=== PATIENT | female | born 1930 | race Caucasian/White ===

== ENCOUNTER 2016-10-23 02:02 | Emergency (ER) | payer OTHER ==
[~2016-10-23] VITALS: Ht 165.1 cm; Wt 68.0 kg
[2016-10-23] VITALS (7 sets, daily range): BP systolic 121–149; BP diastolic 64–79; PULSE 58–87; RESP 16–18; TEMP 97.3; O2SAT 94–97
[~2016-10-23 02:02] MED LIST: CARD120C4 PO; CENT2OIN; DIPH50TA PO; EPIP0.3I IM; GLIM1TAB PO; HYDR12.56 PO; IPRAAER IN; MEMA28CA PO; METF-324 PO; METR-1 PO; NYST100024 TOP; PRED1TAB PO; PRED20 PO; RANI1TAB PO; SIMV20TA PO; SULF-154 PO; VITA200017 PO
[2016-10-23] MEDS ORDERED: methylPREDNISolone SOD SUCC 125 MG/2 ML VIAL IVP ONE (02:30)
[2016-10-23] MEDS ORDERED: SODIUM CHLORIDE 0.9% FLUSH 10 ML FLUSH IV FLUSH PRN (02:30)
[2016-10-23] MEDS ORDERED: FAMOTIDINE 20 MG/2 ML VIAL IV PUSH ONE (02:30)
[2016-10-23] MEDS ORDERED: MELA5TAB15 PO (02:57)
[2016-10-23] MEDS ORDERED: GLIP5TAB8 PO (02:57)
[2016-10-23] MEDS ORDERED: CALC1TAB87 PO (02:57)
[2016-10-23] MEDS ORDERED: DIPH25CA PO (02:57)
[2016-10-23] MEDS ORDERED: [UNRECOGNIZED DRUG - CODE] SQ (02:57)
[2016-10-23] MEDS ORDERED: METF1000 PO (02:57)
[2016-10-23] MEDS ORDERED: B-COINJ IM (02:57)
[2016-10-23] MEDS ORDERED: SIMV10TA PO (02:57)
[2016-10-23] MEDS ORDERED: RANI150T PO (02:57)
[2016-10-23] MEDS ORDERED: DONE5TAB7 PO (02:57)
[2016-10-23] MEDS ORDERED: ASPI81CH37 CHEW (02:57)
[2016-10-23] MEDS ORDERED: DILT-60 PO (02:57)
[2016-10-23] MEDS ORDERED: MEMA28CA PO (02:57)
--- NOTE | 2016-10-23 03:41 | PD ---
HPI Chief Complaint: Edema Time Seen by Provider: 02:25 Travel History International Travel<30 days: No Contact w/Intl Traveler<30days: No Traveled to known affect area: No History of Present Illness HPI 86-year-old female presents to the emergency department by EMS transport from her assisted-living facility where she noted some development of right-sided upper and lower lip edema. Patient has history of recurrent idiopathic angioedema. Patient reports she typically gets a shot of steroid and her symptoms resolved. Patient does take Benadryl. Patient reports that she believes her last dose of Benadryl was evening. Patient is taking no other medications. Patient denies any tongue or throat swelling. There is been no stridor or hoarseness. Patient denies any shortness of breath or difficulty swallowing. Patient denies shortness of breath wheezing palpitations nausea vomiting near-syncope or syncope. PFSH Past Medical History Narrative Medical Dyslipidemia dementia diabetes diminished hearing idiopathic angioedema hypertension occasional alcohol use; nursing notes reviewed Cardiovascular Problems: Yes High Cholesterol: Yes Dementia: Yes Diabetes: Yes Patient Takes Glucophage: Yes Diminished Hearing: Yes Hypertension: Yes Immunizations Current: Yes Tetanus Vaccination: Unknown Influenza Vaccination: No (ALLERGY) ?: Not Menopausal: Yes Social History Alcohol Use: Yes (OCCASIONAL) Tobacco Use: No Substance Use: No Allergies-Medications (Allergen,Severity, Reaction): Coded Allergies: Cipro (Unverified Allergy, Severe, 10/23/16) Influenza Virus Vaccine (Unverified Allergy, Severe, 10/23/16) Losartan (Unverified Allergy, Severe, 10/23/16) Reported Meds & Prescriptions Reported Meds & Active Scripts Active Medrol Dosepak (Methylprednisolone) 4 Mg Dspk 4 Mg PO DIRECTED Per Pharmacist direction Reported Epinephrine Inj (Epinephrine HCl) 1 Mg/Ml Inj 0.3 Mg SQ ONCE PRN Give with any signs of respiratory distress. Vitamin B-Complex 100 Inj (B-Complex Vitamins Inj) 1 Inj Inj 1,000 Mcg IM MONTHLY Simvastatin 10 Mg Tab 10 Mg PO DAILY Ranitidine (Ranitidine HCl) 150 Mg Tab 150 Mg PO DAILY Namenda Xr (Memantine) 28 Mg Caper 28 Mg PO DAILY Metformin (Metformin HCl) 1,000 Mg Tab 1,000 Mg PO BIDPC With meals Melatonin 5 Mg Tab 3 Mg PO HS Glipizide 5 Mg Tab 5 Mg PO DAILY Take 30 minutes before a meal Donepezil 5 Mg Tab 5 Mg PO HS Diphenhydramine (Diphenhydramine HCl) 25 Mg Cap 25 Mg PO HS PRN Diltiazem CD 24 HR 120 Mg Caper 120 Mg PO DAILY Calcium 600 with Vitamin D (Calcium Carbonate-Cholecalciferol) 600-400 mg-Unit Tab 1 Tab PO BID Aspirin Low Dose (Aspirin) 81 Mg Chew 81 Mg CHEW DAILY Review of Systems Except as stated in HPI: all other systems reviewed are Neg General / Constitutional: No: Fever, Chills HENT: No: Congestion Cardiovascular: No: Chest Pain or Discomfort Respiratory: No: Shortness of Breath, Wheezing, Stridor Gastrointestinal: No: Nausea, Vomiting Genitourinary: No: Dysuria, Flank Pain Musculoskeletal: No: Myalgias, Arthralgias Skin: Positive Other, No Rash Neurologic: No: Weakness, Dizziness, Syncope, Focal Abnormalities, Coordination Problem Psychiatric: No: Anxiety Endocrine: No: Heat Intolerance Hematologic/Lymphatic: No: Easy Bruising Physical Exam Narrative GENERAL: Well-developed well-nourished elderly female in no acute distress no respiratory distress; no stridor or hoarseness. SKIN: Warm and dry. HEAD: Normocephalic. EYES: No scleral icterus. No injection or drainage. ENT: Right side of upper and lower lip mild angioedema changes no tongue or posterior pharyngeal edema airway is patent; mucous membranes moist NECK: Supple, trachea midline. No JVD or lymphadenopathy. CARDIOVASCULAR: Regular rate and rhythm without murmurs, gallops, or rubs. RESPIRATORY: Breath sounds equal bilaterally. No accessory muscle use. GASTROINTESTINAL: Abdomen soft, non-tender, nondistended. MUSCULOSKELETAL: No cyanosis, or edema. BACK: Nontender without obvious deformity. No CVA tenderness. . Data Data Last Documented VS Vital Signs Date Time Temp Pulse Resp B/P Pulse Ox O2 Delivery O2 Flow Rate FiO2 10/23/16 04:31 87 18 130/65 96 Room Air 10/23/16 02:17 97.3 Orders Ecg Monitoring (10/23/16 02:26) Iv Access Insert/Monitor (10/23/16 02:26) Oximetry (10/23/16 02:26) Methylprednisolone So Succ Inj (Solumedr (10/23/16 02:30) Famotidine Inj (Pepcid Inj) (10/23/16 02:30) Sodium Chloride 0.9% Flush (Ns Flush) (10/23/16 02:30) MDM Medical Decision Making Medical Screen Exam Complete: Yes Emergency Medical Condition: Yes Medical Record Reviewed: Yes Differential Diagnosis Allergic reaction, localized angioedema, anaphylaxis, contact dermatitis, contusion Narrative Course Patient administered Solu-Medrol 125 mg IV Benadryl 25 mg IV and Pepcid 20 mg IV Is now 3:40 AM patient has been observed x 1 hour after medication administration @3:55 AM patient is clinically improved minimal residual edema of the right side of the lower lip at the corner; patient continues to deny any tongue or throat swelling denies any shortness of breath or chest pain palpitations and has no hoarseness or stridor and no wheezing. Patient will be given prescription for Medrol Dosepak and is stable for outpatient management at this time. Diagnosis Primary Impression: Angioedema of lips Qualified Code: T78.3XXA - Angioedema of lips, initial encounter Referrals: Primary Care Physician 1 day Patient Instructions: General Instructions Additional Instructions: Complete steroid taper as prescribed Continue chronic medications as currently prescribed Follow-up with primary care provider call office in a.m. Return to the emergency department for any concerns or change in condition Avoid hot foods and beverages over the next 24-48 hours as part of dietary intake Take Zantac 150 twice daily for 7 days Use your epi-pen as prescribed as directed as needed Med/Other Pt SpecificInfo: Prescription(s) given Scripts Methylprednisolone Dosepak (Medrol Dosepak)4 Mg Dspk4 Mg PO DIRECTED #1 DSPK Ref 0 Per Pharmacist direction Prov:Gabrielle Fine MD 10/23/16 Disposition: 01 DISCHARGE HOME Condition: Stable Gabrielle Fine MD October 23, 2016 03:41
[2016-10-23] MEDS ORDERED: MEDR4PAK PO (03:59)
== END 2016-10-23 08:41 | disposition home or self-care (01) ==
LOC: PHED 02:02
DX: T78.3XXA Angioneurotic edema, initial encounter (principal); E78.5 Hyperlipidemia, unspecified; F03.90 Unspecified dementia, unspecified severity, without behavioral disturbance, psychotic disturbance, mood disturbance, and anxiety; E11.9 Type 2 diabetes mellitus without complications; H91.90 Unspecified hearing loss, unspecified ear; I10 Essential (primary) hypertension; Z79.84 Long term (current) use of oral hypoglycemic drugs; Z86.79 Personal history of other diseases of the circulatory system
CPT/HCPCS: 96374; 96375; 99283; J2930

== ENCOUNTER 2017-03-10 14:23 | Emergency (ER) | payer OTHER ==
[~2017-03-10 14:23] MED LIST changes: +ASPI81CH37 CHEW; +B-COINJ IM; +CALC1TAB87 PO; -CARD120C4 PO; -CENT2OIN; +DILT-60 PO; +DIPH25CA PO; -DIPH50TA PO; +DONE5TAB7 PO; -EPIP0.3I IM; -GLIM1TAB PO; +GLIP5TAB8 PO; -HYDR12.56 PO; -IPRAAER IN; +MEDR4PAK PO; +MELA5TAB15 PO; -METF-324 PO; +METF1000 PO; -METR-1 PO; -NYST100024 TOP; -PRED1TAB PO; -PRED20 PO; +RANI150T PO; -RANI1TAB PO; +SIMV10TA PO; -SIMV20TA PO; -SULF-154 PO; -VITA200017 PO; +[UNRECOGNIZED DRUG - CODE] SQ
[2017-03-10 14:26] VITALS: BP 140/64; PULSE 88; RESP 20; TEMP 97.8; O2SAT 97
--- NOTE | 2017-03-10 14:49 | PD ---
HPI Chief Complaint: General Weakness Time Seen by Provider: 14:36 Travel History International Travel<30 days: No Contact w/Intl Traveler<30days: No History of Present Illness HPI This is an 86-year-old female who presents to the emergency department with generalized weakness that's been going on for 1 week, constant, moderate severity, associated with some shortness of breath on exertion. Her nursing services manager says that this morning she checked on her and she was unable to get out of bed without support. She says this is unusual for her. She says her appetite has been decreased over the past week. There is been concerned that the patient has anemia and initially the primary care doctor was can refer her to an oncologist but her children are hesitant to put her through a bone biopsy or too much invasive testing. PFSH Past Medical History Cardiovascular Problems: Yes High Cholesterol: Yes Dementia: Yes Diabetes: Yes Diminished Hearing: Yes Hypertension: Yes Immunizations Current: Yes Menopausal: Yes Social History Alcohol Use: Yes (OCCASIONAL) Tobacco Use: No Substance Use: No Allergies-Medications (Allergen,Severity, Reaction): Coded Allergies: Influenza Virus Vaccines (Unverified Allergy, Severe, 03/10/17) ciprofloxacin (Unverified Allergy, Severe, 03/10/17) losartan (Unverified Allergy, Severe, 03/10/17) Reported Meds & Prescriptions Reported Meds & Active Scripts Active Reported Diphenhydramine (Diphenhydramine HCl) 25 Mg Cap 25 Mg PO DAILY Vitamin D3 (Cholecalciferol) 2,000 Unit Cap 2,000 Units PO DAILY Epinephrine Inj (Epinephrine HCl) 1 Mg/Ml Inj 0.3 Mg SQ ONCE PRN Give with any signs of respiratory distress. Vitamin B-Complex 100 Inj (B-Complex Vitamins Inj) 1 Inj Inj 1,000 Mcg IM MONTHLY Simvastatin 10 Mg Tab 10 Mg PO DAILY Ranitidine (Ranitidine HCl) 150 Mg Tab 150 Mg PO DAILY Namenda Xr (Memantine) 28 Mg Caper 28 Mg PO DAILY Metformin (Metformin HCl) 1,000 Mg Tab 1,000 Mg PO BIDPC With meals Donepezil 5 Mg Tab 5 Mg PO HS Diphenhydramine (Diphenhydramine HCl) 25 Mg Cap 25 Mg PO HS PRN Diltiazem CD 24 HR 120 Mg Caper 120 Mg PO DAILY Calcium 600 with Vitamin D (Calcium Carbonate-Cholecalciferol) 600-400 mg-Unit Tab 1 Tab PO BID Aspirin Low Dose (Aspirin) 81 Mg Chew 81 Mg CHEW DAILY Review of Systems ROS Limitations: Poor Historian (history of dementia) Physical Exam Narrative GENERAL: Frail elderly female SKIN: Focused skin assessment warm and dry. HEAD: Atraumatic. Normocephalic. EYES: Pupils equal and round. No injection or drainage. ENT: Moist mucous membranes NECK: Trachea midline. CARDIOVASCULAR: Regular rate and rhythm. 3+ systolic murmur over the right upper sternal border RESPIRATORY: Clear to auscultation. Breath sounds equal bilaterally. GASTROINTESTINAL: Abdomen soft, non-tender, nondistended. MUSCULOSKELETAL: No obvious deformities. NEUROLOGICAL: Awake and alert. No obvious cranial nerve deficits. Moving all extremities. PSYCHIATRIC: Appropriate mood and affect; insight and judgment normal. Data Data Last Documented VS Vital Signs Date Time Temp Pulse Resp B/P (MAP) Pulse Ox O2 Delivery O2 Flow Rate FiO2 03/10/17 14:26 97.8 88 20 140/64 (89) 97 Orders Orders Complete Blood Count With Diff (03/10/17 14:43) Comprehensive Metabolic Panel (03/10/17 14:43) Troponin I (03/10/17 14:43) Electrocardiogram (03/10/17 ) Urinalysis - C+S If Indicated (03/10/17 14:43) Chest, Single Ap (03/10/17 ) Urine Culture (03/10/17 15:00) Sodium Chlor 0.9% 1000 Ml Inj (Ns 1000 M (03/10/17 15:30) Labs Laboratory Tests Test 03/10/17 14:55 03/10/17 15:00 White Blood Count 8.6 TH/MM3 Red Blood Count 3.81 MIL/MM3 Hemoglobin 10.9 GM/DL Hematocrit 33.4 % Mean Corpuscular Volume 87.8 FL Mean Corpuscular Hemoglobin 28.5 PG Mean Corpuscular Hemoglobin Concent 32.5 % Red Cell Distribution Width 13.6 % Platelet Count 141 TH/MM3 Mean Platelet Volume 9.0 FL Neutrophils (%) (Auto) 69.4 % Lymphocytes (%) (Auto) 19.7 % Monocytes (%) (Auto) 7.0 % Eosinophils (%) (Auto) 3.4 % Basophils (%) (Auto) 0.5 % Neutrophils # (Auto) 6.0 TH/MM3 Lymphocytes # (Auto) 1.7 TH/MM3 Monocytes # (Auto) 0.6 TH/MM3 Eosinophils # (Auto) 0.3 TH/MM3 Basophils # (Auto) 0.0 TH/MM3 CBC Comment DIFF FINAL Differential Comment Blood Urea Nitrogen 21 MG/DL Creatinine 1.20 MG/DL Random Glucose 187 MG/DL Total Protein 6.7 GM/DL Albumin 3.5 GM/DL Calcium Level 9.2 MG/DL Alkaline Phosphatase 55 U/L Aspartate Amino Transf (AST/SGOT) 14 U/L Alanine Aminotransferase (ALT/SGPT) 14 U/L Total Bilirubin 0.4 MG/DL Sodium Level 137 MEQ/L Potassium Level 3.9 MEQ/L Chloride Level 103 MEQ/L Carbon Dioxide Level 25.6 MEQ/L Anion Gap 8 MEQ/L Estimat Glomerular Filtration Rate 42 ML/MIN Troponin I 0.02 NG/ML Urine Color YELLOW Urine Turbidity CLEAR Urine pH 6.5 Urine Specific [place] 1.015 Urine Protein NEG mg/dL Urine Glucose (UA) NEG mg/dL Urine Ketones TRACE mg/dL Urine Occult Blood NEG Urine Nitrite NEG Urine Bilirubin NEG Urine Leukocyte Esterase NEG Urine RBC 0-3 /hpf Urine WBC 0-2 /hpf Urine Squamous Epithelial Cells 0-5 /hpf Urine Bacteria MANY /hpf Microscopic Urinalysis Comment CATH-CULTURE IND MDM Medical Decision Making Medical Screen Exam Complete: Yes Emergency Medical Condition: Yes Interpretation(s) Hemoglobin is 10.9 which is improved from the baseline labs that her nurse brings in Renal insufficiency Troponin is normal EKG: Normal sinus rhythm, left anterior fascicular block, no ST changes Differential Diagnosis Urinary tract infection, arrhythmia, myocardial infarction, electrolyte abnormality Narrative Course This is an 86-year-old female who presents to the emergency department with generalized weakness. She has a history of recurrent urinary tract infections and anemia. She is placed on a monitor and an IV was established. Labs are obtained which were all reassuring except for some renal insufficiency which is likely dehydration. She was given a liter of IV fluid in the emergency department. Urinalysis demonstrates large amount of bacteria. She'll be placed on an antibiotic for urinary tract infection. I think she is safe for outpatient follow-up with her primary care physician. Diagnosis Primary Impression: UTI (urinary tract infection) Qualified Codes: N30.00 - Acute cystitis without hematuria Patient Instructions: General Instructions Additional Instructions: If you develop fever, persistent vomiting, back pain, or inability to eat return to the emergency department as your urine infection may have progressed to a kidney infection. Complete your antibiotics as prescribed. Stay well hydrated with Gatorade or water. Followup with your primary care physician in 2-3 days if your symptoms have not resolved. Med/Other Pt SpecificInfo: Prescription(s) given Scripts Nitrofurantoin Monohydrate Macrocrystals (Macrobid) 100 Mg Cap 100 MG PO BID for Infection for 7 Days, #14 CAP 0 Refills Prov: Janay Simons MD 03/10/17 Disposition: 01 DISCHARGE HOME Condition: Stable Janay Simons MD Mar 10, 2017 14:49
--- NOTE | 2017-03-10 15:08 | RADRPT ---
EXAM DATE/TIME: 03/10/2017 14:52 [facility] COMPARISON: No previous studies available for comparison. INDICATIONS : Short of breath MEDICAL HISTORY : Hypertension. SURGICAL HISTORY : None. ENCOUNTER: Initial ACUITY: 2 days PAIN SCORE: 0/10 LOCATION: Bilateral chest FINDINGS: The cardiac silhouette is enlarged in transverse diameter. The lungs are free of acute parenchymal op acity. No effusions are identified. The aortic knob is prominent with tortuosity of the descending th oracic aorta. CONCLUSION: 1. No acute cardiopulmonary disease. Jose Box MD on March 10, 2017 at 15:06 Board Certified Radiologist. This report was verified electronically.
[2017-03-10 15:13] LABS: BASOPHIL % 0.5 % (0.0-2.0); EOSINOPHIL # 0.3 TH/MM3 (0-0.4); EOSINOPHIL % 3.4 % (0.0-4.0); HEMATOCRIT 33.4 % (35.0-46.0); HEMO FLAGS DIFF FINAL; LYMPH % 19.7 % (9.0-44.0); LYMPHOCYTE # 1.7 TH/MM3 (1.0-4.8); MEAN CELL VOLUME 87.8 FL (80.0-100.0); MEAN CORPUSCULAR HEMOGLOBIN 28.5 PG (27.0-34.0); MEAN CORPUSCULAR HGB CONC 32.5 % (32.0-36.0); NEUT % 69.4 % (16.0-70.0); PLATELET COUNT 141 TH/MM3 (150-450); RED BLOOD COUNT 3.81 MIL/MM3 (4.00-5.30); RED CELL DISTRIBUTION WIDTH 13.6 % (11.6-17.2); WHITE BLOOD COUNT 8.6 TH/MM3 (4.0-11.0)
[2017-03-10 15:15] LABS: BLOOD, URINE NEG (NEG); GLUCOSE,URINE NEG (NEG); KETONE, URINE TRACE mg/dL (NEG); NITRITE,URINE NEG (NEG); PH, URINE 6.5 (5.0-8.5)
[2017-03-10 15:21] LABS: CHLORIDE 103 MEQ/L (98-107); POTASSIUM 3.9 MEQ/L (3.5-5.1); SODIUM (NA) 137 MEQ/L (136-145)
[2017-03-10 15:22] LABS: URINE COLOR YELLOW (YELLW/STRAW)
[2017-03-10 15:23] LABS: BACTERIA, URINE MANY /hpf
[2017-03-10 15:24] LABS: COMMENT (UR) CATH-CULTURE IND; CULTURE IF INDICATED CATH CULTURE IND; RBC, URINE 0-3 /hpf (0-3); SQUAMOUS EPITHELIAL CELL URINE 0-5 /hpf (0-5); WBC, URINE 0-2 /hpf (0-5)
[2017-03-10 15:24] LABS: ANION GAP 8 MEQ/L (5-15); BICARBONATE 25.6 MEQ/L (21.0-32.0); BLOOD UREA NITROGEN 21 MG/DL (7-18)
[2017-03-10 15:27] LABS: ALT (GPT) 14 U/L (10-53); AST (GOT) 14 U/L (15-37)
[2017-03-10 15:28] LABS: GLOMERULAR FILTRATION RATE 42 ML/MIN (>89)
[2017-03-10] MEDS ORDERED: VITA2000 PO (15:28)
[2017-03-10] MEDS ORDERED: DIPH25CA PO (15:28)
[2017-03-10 15:29] LABS: TOTAL BILIRUBIN ADULT 0.4 MG/DL (0.2-1.0)
[2017-03-10 15:30] LABS: ALKALINE PHOSPHATASE 55 U/L (45-117)
[2017-03-10] MEDS ORDERED: SODIUM CHLOR 0.9% 1000 ML INJ 1,000 ML IV ONE (15:30)
[2017-03-10] MEDS ORDERED: MACR100C2 PO (15:38)
--- NOTE | 2017-03-11 15:04 | EKG ---
Date Performed: 03/10/2017 Time Performed: 14:49:25 PTAGE: 86 years EKG: Sinus rhythm LEFT ANTERIOR FASCICULAR BLOCK VOLTAGE CRITERIA FOR LVH POSSIBLE ANTERIOR MYOCARDIAL INFARCTION ABNO RMAL ECG PREVIOUS TRACING : 07/30/2014 22.55 Compared to prior tracing no significant change DOCTOR: Endy Granados Interpretating Date/Time 03/11/2017 15:02:26
== END 2017-03-10 16:35 | disposition home or self-care (01) ==
LOC: PHED 14:23
DX: R53.1 Weakness (principal); E11.9 Type 2 diabetes mellitus without complications; E78.5 Hyperlipidemia, unspecified; I10 Essential (primary) hypertension; F03.90 Unspecified dementia, unspecified severity, without behavioral disturbance, psychotic disturbance, mood disturbance, and anxiety; Z79.84 Long term (current) use of oral hypoglycemic drugs; Z79.899 Other long term (current) drug therapy; Z79.82 Long term (current) use of aspirin
CPT/HCPCS: 71010; 80053; 81001; 84484; 85025; 87086; 93005; 96360; 99285; J7030

== ENCOUNTER 2017-03-22 02:10 | Observation (INO) | payer OTHER ==
[2017-03-22] VITALS (9 sets, daily range): BP systolic 101–139; BP diastolic 53–78; PULSE 50–96; RESP 16–18; TEMP 97.6–98.7; O2SAT 94–96
[~2017-03-22] VITALS: Ht 165.1 cm; Wt 68.6 kg
[~2017-03-22 02:10] MED LIST changes: -GLIP5TAB8 PO; +MACR100C2 PO; -MEDR4PAK PO; -MELA5TAB15 PO; +VITA2000 PO
--- NOTE | 2017-03-22 02:26 | PD ---
HPI Chief Complaint: N/V Time Seen by Provider: 02:22 Travel History International Travel<30 days: No Contact w/Intl Traveler<30days: No Traveled to known affect area: No History of Present Illness HPI PATIENT STATES 3 DAYS OF N/V/D THAT IS NOT IMPROVING, NOW FEELS GENERALIZED WEAKNESS AND PATIENT NOTED BLACK APPEARANCE TO , STARTED AN EPISODE TONIGHT WHICH CAUSED THE [facility] STAFF TO CALL EMS. PATIENT WAS GIVEN ZOFRAN BY EMS AND PATIENT FEELS MUCH BETTER. PATIENT DENIES ANY MARTINEZ/CP/ABD PAIN OR BACK PAIN. PATIENT DENIES ANY BRIGHT RED BLOOD PCP: CAN'T RECALL NAME, BUT IS [facility] DOCTOR [facility] Past Medical History Cardiovascular Problems: Yes High Cholesterol: Yes Dementia: Yes Diabetes: Yes Diminished Hearing: Yes Hypertension: Yes Immunizations Current: Yes Menopausal: Yes Social History Alcohol Use: Yes (OCCASIONAL) Tobacco Use: No Substance Use: No Allergies-Medications (Allergen,Severity, Reaction): Coded Allergies: Influenza Virus Vaccines (Unverified Allergy, Severe, 03/10/17) ciprofloxacin (Unverified Allergy, Severe, 03/10/17) losartan (Unverified Allergy, Severe, 03/10/17) Reported Meds & Prescriptions Reported Meds & Active Scripts Active Reported Tylenol (Acetaminophen) 325 Mg Tab 650 Mg PO Q4H PRN [nystatin] 10,000 Units BID Mirtazapine 7.5 Mg Tab 7.5 Mg PO HS Ferrous Sulfate 325 Mg (65 Mg Iron) Tablet 325 Mg PO DAILY Vitamin D3 (Cholecalciferol) 2,000 Unit Cap 2,000 Units PO DAILY Epinephrine Inj (Epinephrine HCl) 1 Mg/Ml Inj 0.3 Mg SQ ONCE PRN Give with any signs of respiratory distress. Simvastatin 10 Mg Tab 10 Mg PO DAILY Ranitidine (Ranitidine HCl) 150 Mg Tab 150 Mg PO DAILY Namenda Xr (Memantine) 28 Mg Caper 28 Mg PO DAILY Donepezil 5 Mg Tab 5 Mg PO HS Diphenhydramine (Diphenhydramine HCl) 25 Mg Cap 25 Mg PO HS PRN Diltiazem CD 24 HR 120 Mg Caper 120 Mg PO DAILY Calcium 600 with Vitamin D (Calcium Carbonate-Cholecalciferol) 600-400 mg-Unit Tab 1 Tab PO BID Aspirin Low Dose (Aspirin) 81 Mg Chew 81 Mg CHEW DAILY Review of Systems General / Constitutional: Positive: Other (GEN WEAKNESS), No: Fever Eyes: No: Visual changes HENT: No: Headaches Cardiovascular: No: Chest Pain or Discomfort Respiratory: No: Shortness of Breath Gastrointestinal: Positive: Nausea, Vomiting, Diarrhea Genitourinary: No: Dysuria Musculoskeletal: No: Pain Skin: No Rash Neurologic: No: Weakness Psychiatric: No: Depression Endocrine: No: Polydipsia Hematologic/Lymphatic: No: Easy Bruising Physical Exam Narrative GENERAL: SKIN: Warm and dry. HEAD: Atraumatic. Normocephalic. EYES: Pupils equal and round. No scleral icterus. No injection or drainage. ENT: No nasal bleeding or discharge. Mucous membranes pink and moist. NECK: Trachea midline. No JVD. CARDIOVASCULAR: Regular rate and rhythm. RESPIRATORY: No accessory muscle use. Clear to auscultation. Breath sounds equal bilaterally. GASTROINTESTINAL: Abdomen soft, non-tender, nondistended.. RN AT BEDSIDE: KG TY MUSCULOSKELETAL: Extremities without clubbing, cyanosis, or edema. No obvious deformities. NEUROLOGICAL: Awake and alert. No obvious cranial nerve deficits. Motor grossly within normal limits. Five out of 5 muscle strength in the arms and legs. Normal speech. PSYCHIATRIC: Appropriate mood and affect; insight and judgment normal. Data Data Last Documented VS Orders Orders Electrocardiogram (03/22/17 02:23) Complete Blood Count With Diff (03/22/17 02:23) Comprehensive Metabolic Panel (03/22/17 02:23) Troponin I (03/22/17 02:23) Prothrombin Time / Inr (Pt) (03/22/17 02:23) Act Partial Throm Time (Ptt) (03/22/17 02:23) Lipase (03/22/17 02:23) Ct Abd/Pel W/O Iv Contrast (03/22/17 02:23) Iv Access Insert/Monitor (03/22/17 02:23) Ecg Monitoring (03/22/17 02:23) Oximetry (03/22/17 02:23) [employer] / Telemetry CHERELLE.Q8H (03/22/17 03:57) Activity Bed Rest (03/22/17 03:57) Notify Dr: Other (03/22/17 03:57) Admit Order (Ed Use Only) (03/22/17 03:57) Labs Laboratory Tests Test 03/22/17 02:49 White Blood Count 9.6 TH/MM3 Red Blood Count 3.77 MIL/MM3 Hemoglobin 11.3 GM/DL Hematocrit 33.7 % Mean Corpuscular Volume 89.2 FL Mean Corpuscular Hemoglobin 29.9 PG Mean Corpuscular Hemoglobin Concent 33.5 % Red Cell Distribution Width 14.6 % Platelet Count 121 TH/MM3 Mean Platelet Volume 9.8 FL Neutrophils (%) (Auto) 73.9 % Lymphocytes (%) (Auto) 14.7 % Monocytes (%) (Auto) 8.2 % Eosinophils (%) (Auto) 2.7 % Basophils (%) (Auto) 0.5 % Neutrophils # (Auto) 7.1 TH/MM3 Lymphocytes # (Auto) 1.4 TH/MM3 Monocytes # (Auto) 0.8 TH/MM3 Eosinophils # (Auto) 0.3 TH/MM3 Basophils # (Auto) 0.0 TH/MM3 CBC Comment DIFF FINAL Differential Comment Prothrombin Time 10.6 SEC Prothromb Time International Ratio 1.0 RATIO Activated Partial Thromboplast Time 20.8 SEC Blood Urea Nitrogen 26 MG/DL Creatinine 1.11 MG/DL Random Glucose 178 MG/DL Total Protein 6.5 GM/DL Albumin 3.2 GM/DL Calcium Level 8.7 MG/DL Alkaline Phosphatase 51 U/L Aspartate Amino Transf (AST/SGOT) 21 U/L Alanine Aminotransferase (ALT/SGPT) 13 U/L Total Bilirubin 0.6 MG/DL Sodium Level 140 MEQ/L Potassium Level 4.0 MEQ/L Chloride Level 107 MEQ/L Carbon Dioxide Level 20.4 MEQ/L Anion Gap 13 MEQ/L Estimat Glomerular Filtration Rate 46 ML/MIN Troponin I 0.07 NG/ML Lipase 223 U/L [facility] Medical Decision Making Medical Screen Exam Complete: Yes Emergency Medical Condition: Yes Medical Record Reviewed: Yes Interpretation(s) NSR 95, NL INTERVALS, NO STEMI PATTERN Differential Diagnosis VIRAL V BACTERIAL GASTROENTERITIS V ATYPICAL ACS V DEHYDRATION Narrative Course PATIENT HAS BEEN STABLE SINCE IVF/ZOFRAN TREATMENT GIVEN, DENIES CP/ABD PAIN A THIS TIME. DURING HER EVALUATION AND OBSERVATION PATIENT WAS NOTED TO HAVE ELEVATION OF HER TROPONIN. Diagnosis Primary Impression: ENTERITIS Additional Impression: ELEVATED TROPONIN Admitting Information Admitting Physician Requests: Observation Scripts Glipizide ER (Glipizide ER) 2.5 Mg Tiarra 2.5 MG PO DAILY for Blood Sugar Management, #30 TAB 0 Refills Take with breakfast or first main meal of the day Prov: Kory Roberts MD 03/23/17 Ronaldo Seals MD Mar 22, 2017 02:26
[2017-03-22] MEDS ORDERED: FERR325T8 PO (02:35)
[2017-03-22] MEDS ORDERED: MIRT1TAB PO (02:35)
[2017-03-22] MEDS ORDERED: TYLE325T PO (02:35)
[2017-03-22] MEDS ORDERED: vitamin b12 IM (02:35)
[2017-03-22] MEDS ORDERED: nystatin (02:35)
[2017-03-22 03:08] LABS: AUTOMATED NEUTROPHIL # 7.1 TH/MM3 (1.8-7.7); BASOPHIL % 0.5 % (0.0-2.0); EOSINOPHIL # 0.3 TH/MM3 (0-0.4); EOSINOPHIL % 2.7 % (0.0-4.0); HEMATOCRIT 33.7 % (35.0-46.0); HEMO FLAGS DIFF FINAL; LYMPH % 14.7 % (9.0-44.0); LYMPHOCYTE # 1.4 TH/MM3 (1.0-4.8); MEAN CELL VOLUME 89.2 FL (80.0-100.0); MEAN CORPUSCULAR HEMOGLOBIN 29.9 PG (27.0-34.0); MEAN CORPUSCULAR HGB CONC 33.5 % (32.0-36.0); MONO % 8.2 % (0.0-8.0); NEUT % 73.9 % (16.0-70.0); PLATELET COUNT 121 TH/MM3 (150-450); RED BLOOD COUNT 3.77 MIL/MM3 (4.00-5.30); RED CELL DISTRIBUTION WIDTH 14.6 % (11.6-17.2); WHITE BLOOD COUNT 9.6 TH/MM3 (4.0-11.0)
--- NOTE | 2017-03-22 03:24 | RADRPT ---
EXAM DATE/TIME: 03/22/2017 02:47 [facility] COMPARISON: CT ABDOMEN & PELVIS W CONTRAST, July 31, 2014, 0:37. INDICATIONS : Upper abdominal pain with nausea and vomiting. ORAL CONTRAST: No oral contrast ingested. RADIATION DOSE: 9.96 CTDIvol (mGy) MEDICAL HISTORY : Dementia. Cardiovascular disease Diabetes mellitus type 2.Hypertension SURGICAL HISTORY : None. ENCOUNTER: Initial ACUITY: 1 day PAIN SCALE: 4/10 LOCATION: Bilateral upper quadrant TECHNIQUE: Volumetric scanning of the abdomen and pelvis was performed. Using automated exposure control and ad justment of the mA and/or kV according to patient size, radiation dose was kept as low as reasonably achievable to obtain optimal diagnostic quality images. DICOM format image data is available electro nically for review and comparison. FINDINGS: Examination of the lung bases demonstrates no abnormality. No pleural fluid is identified. No pulmona ry nodules are present. Coronary artery calcifications are present. The liver and spleen are normal in size and no focal defects are identified. The gallbladder and panc reas are unremarkable. No intrahepatic or extrahepatic ductal dilatation is seen. The adrenal glands and kidneys appear normal bilaterally. No hydronephrosis or mass lesions are identified. Examination of the pelvis demonstrates no evidence of free fluid or pelvic mass. No abnormally enlarg ed inguinal or retroperitoneal lymph nodes are present. The bladder is unremarkable. There is diverti culosis without evidence of diverticulitis. CONCLUSION: 1. No evidence of acute pelvic process. No masses are identified. 2. Diverticulosis without evidence of diverticulitis. Jose Box MD on March 22, 2017 at 3:18 Board Certified Radiologist. This report was verified electronically.
[2017-03-22 03:32] LABS: ALKALINE PHOSPHATASE 51 U/L (45-117); TOTAL BILIRUBIN ADULT 0.6 MG/DL (0.2-1.0)
[2017-03-22 03:43] LABS: ALT (GPT) 13 U/L (10-53); ANION GAP 13 MEQ/L (5-15); AST (GOT) 21 U/L (15-37); BICARBONATE 20.4 MEQ/L (21.0-32.0); BLOOD UREA NITROGEN 26 MG/DL (7-18); CHLORIDE 107 MEQ/L (98-107); GLOMERULAR FILTRATION RATE 46 ML/MIN (>89); SODIUM (NA) 140 MEQ/L (136-145)
[2017-03-22 03:47] LABS: APTT (PATIENT) 20.8 SEC (24.3-30.1); PROTHROMBIN TIME - PATIENT 10.6 SEC (9.8-11.6)
[2017-03-22] MEDS ORDERED: ACETAMINOPHEN/HYDROcodone 325 MG/5 MG TAB PO PRN (04:00)
[2017-03-22] MEDS ORDERED: ACETAMINOPHEN 325 MG TAB PO PRN (04:00)
[2017-03-22] MEDS ORDERED: SODIUM CHLORIDE 0.9% FLUSH 10 ML FLUSH IV FLUSH PRN (04:00)
[2017-03-22] MEDS ORDERED: MORPHINE SULFATE 2 MG/ML INJ IV PUSH PRN (04:00)
[2017-03-22] MEDS ORDERED: LACTULOSE SYRUP 20 GM/30 ML CUP PO PRN (04:00)
[2017-03-22] MEDS ORDERED: MAGNESIUM HYDROXIDE SUSP 30 ML CUP PO PRN (04:00)
[2017-03-22] MEDS ORDERED: ONDANSETRON HCL 4 MG/2 ML VIAL IVP PRN (04:00)
[2017-03-22] MEDS ORDERED: SENNOSIDES 8.6 MG TAB PO PRN (04:00)
[2017-03-22] MEDS ORDERED: BISACODYL 10 MG SUPP RECTAL PRN (04:00)
--- NOTE | 2017-03-22 04:27 | HHI.HP ---
HPI [facility] Primary Care Physician Non-Staff Admission Diagnosis GASTROENTERITIS/ELEVATED TROPONIN Diagnoses: (1) Intractable nausea and vomiting Diagnosis: Principal (2) Elevated troponin Diagnosis: Principal (3) Renal insufficiency Diagnosis: Principal (4) Thrombocytopenia Diagnosis: Principal (5) DM (diabetes mellitus) Diagnosis: Principal (6) Dementia Diagnosis: Principal Travel History International Travel<30 Days: No Contact w/Intl Traveler <30 Da: No Traveled to Known Affected Are: No History of Present Illness This is an 86-year-old female with a PMH of HTN, Hyperlipidemia, Dementia and DM who was brought to the ER by EMS with complaints of generalized weakness addition to nausea, vomiting and few episodes of diarrhea. States nausea/ vomiting has been ongoing for approx 3 days, today w/ worsening generalized weakness. No fever, chills or sick contacts. On arrival, BP 130/60, HR 95, O2 sat 94% on RA, Afebrile. CBC essentially at baseline, Platelets 121, previously 141 on 03/10/17. Creatinine 1.11, previously 1.20 on 03/10/17. Troponin 0.07. EKG with no acute ischemia. No complaints of chest pain. INR 1.0. CT Abd/Pelvis w/ no acute findings. Review of Systems Except as stated in HPI: all other systems reviewed are Neg ROS: 14 point review of systems otherwise negative. Past Family Social History Past Medical History PMH: HTN, Hyperlipidemia, Dementia and DM Past Surgical History PAST SURGICAL HISTORY: Left Shoulder Surgery Allergies: Coded Allergies: Influenza Virus Vaccines (Unverified Allergy, Severe, 03/10/17) ciprofloxacin (Unverified Allergy, Severe, 03/10/17) losartan (Unverified Allergy, Severe, 03/10/17) Family History PAST FAMILY HISTORY: Reviewed, positive for DM. Social History PAST SOCIAL HISTORY: Negative for alcohol, tobacco or drugs. Physical Exam Vital Signs Vital Signs Date Time Temp Pulse Resp B/P (MAP) Pulse Ox O2 Delivery O2 Flow Rate FiO2 03/22/17 02:46 Room Air 03/22/17 02:20 98.7 95 139/60 (86) 94 Physical Exam PE: GENERAL: Very pleasant elderly white female in no acute distress. HEENT: PERRLA, EOMI. No scleral icterus or conjunctival pallor. No lid lag or facial droop. CARDIOVASCULAR: Regular rate and rhythm. No obvious murmurs to auscultation. No chest tenderness to palpation. RESPIRATORY: No obvious rhonchi or wheezing. Clear to auscultation. Breath sounds equal bilaterally. GASTROINTESTINAL: Abdomen soft, non-tender, nondistended. BS normal. MUSCULOSKELETAL: Extremities without clubbing, cyanosis, or edema. No obvious deformities. NEUROLOGICAL: Awake, alert and oriented x4. No focal neurologic deficits. Moving both upper and lower extremities spontaneously. Laboratory Laboratory Tests Test 03/22/17 02:49 White Blood Count 9.6 Red Blood Count 3.77 Hemoglobin 11.3 Hematocrit 33.7 Mean Corpuscular Volume 89.2 Mean Corpuscular Hemoglobin 29.9 Mean Corpuscular Hemoglobin Concent 33.5 Red Cell Distribution Width 14.6 Platelet Count 121 Mean Platelet Volume 9.8 Neutrophils (%) (Auto) 73.9 Lymphocytes (%) (Auto) 14.7 Monocytes (%) (Auto) 8.2 Eosinophils (%) (Auto) 2.7 Basophils (%) (Auto) 0.5 Neutrophils # (Auto) 7.1 Lymphocytes # (Auto) 1.4 Monocytes # (Auto) 0.8 Eosinophils # (Auto) 0.3 Basophils # (Auto) 0.0 CBC Comment DIFF FINAL Differential Comment Prothrombin Time 10.6 Prothromb Time International Ratio 1.0 Activated Partial Thromboplast Time 20.8 Blood Urea Nitrogen 26 Creatinine 1.11 Random Glucose 178 Total Protein 6.5 Albumin 3.2 Calcium Level 8.7 Alkaline Phosphatase 51 Aspartate Amino Transf (AST/SGOT) 21 Alanine Aminotransferase (ALT/SGPT) 13 Total Bilirubin 0.6 Sodium Level 140 Potassium Level 4.0 Chloride Level 107 Carbon Dioxide Level 20.4 Anion Gap 13 Estimat Glomerular Filtration Rate 46 Troponin I 0.07 Lipase 223 Result Diagram: 03/22/1724803/22/17248 Caprini VTE Risk Assessment Caprini VTE Risk Assessment: No/Low Risk (score <= 1) Caprini Risk Assessment Model Point Value = 1 Point Value = 2 Point Value = 3 Point Value = 5 Age 41-60 Minor surgery BMI > 25 kg/m2 Swollen legs Varicose veins or History of unexplained or recurrent spontaneous Oral contraceptives or hormone replacement Sepsis (< 1 month) Serious lung disease, including pneumonia (< 1 month) Abnormal pulmonary function Acute myocardial infarction Congestive heart failure (< 1 month) History of inflammatory bowel disease Medical patient at bed rest Age 61-74 Arthroscopic surgery Major open surgery (> 45 min) Laparoscopic surgery (> 45 min) Malignancy Confined to bed (> 72 hours) Immobilizing plaster cast Central venous access Age >= 75 History of VTE Family history of VTE Factor V Leiden Prothrombin [id number] Lupus anticoagulant Anticardiolipin antibodies Elevated serum homocysteine Heparin-induced thrombocytopenia Other congenital or acquired thrombophilia Stroke (< 1 month) Elective arthroplasty Hip, pelvis, or leg fracture Acute spinal cord injury (< 1 month) Prophylaxis Regimen Total Risk Factor Score Risk Level Prophylaxis Regimen 0-1 Low Early ambulation 2 Moderate Order ONE of the following: *Sequential Compression Device (SCD) *Heparin 5000 units SQ BID 3-4 Higher Order ONE of the following medications: *Heparin 5000 units SQ TID *Enoxaparin/Lovenox 40 mg SQ daily (WT < 150 kg, CrCl > 30 mL/min) *Enoxaparin/Lovenox 30 mg SQ daily (WT < 150 kg, CrCl > 10-29 mL/min) *Enoxaparin/Lovenox 30 mg SQ BID (WT < 150 kg, CrCl > 30 mL/min) AND/OR *Sequential Compression Device (SCD) 5 or more Highest Order ONE of the following medications: *Heparin 5000 units SQ TID (Preferred with Epidurals) *Enoxaparin/Lovenox 40 mg SQ daily (WT < 150 kg, CrCl > 30 mL/min) *Enoxaparin/Lovenox 30 mg SQ daily (WT < 150 kg, CrCl > 10-29 mL/min) *Enoxaparin/Lovenox 30 mg SQ BID (WT < 150 kg, CrCl > 30 mL/min) AND *Sequential Compression Device (SCD) Assessment and Plan Problem List: (1) Intractable nausea and vomiting ICD Code: R11.2 - Nausea with vomiting, unspecified (2) Elevated troponin ICD Code: R74.8 - Abnormal levels of other serum enzymes (3) Renal insufficiency ICD Code: N28.9 - Disorder of kidney and ureter, unspecified (4) Thrombocytopenia ICD Code: D69.6 - Thrombocytopenia, unspecified (5) Dementia ICD Code: F03.90 - Unspecified dementia without behavioral disturbance (6) DM (diabetes mellitus) ICD Code: E11.9 - Type 2 diabetes mellitus without complications Assessment and Plan A/P: 1. Intractable NV: c/o nausea/vomiting w/ occasional diarrhea x3 days, no fever, chills or sick contacts. CT Abd/Pelvis w/ no acute findings, images reviewed by me. Likely viral gastroenteritis, however r/o atypical presentation of ACS in light of elevated trop. Analgesics/antiemetics, IVF. 2. Elevated Trop: Trop 0.07, EKG w/ no acute ischemia. No c/o chest pain. As above, R/o atypical presentation of ACS. Check serial cardiac enzymes, resume home ASA, Statin. Start Metoprolol. NTG/Morphine prn if needed. Consult Cardio as needed. 3. Renal Insufficiency: Chronic. Creatinine 1.11, previously 1.20 on . U/a negative. IVF for hydration, repeat labs in am 4. Thrombocytopenia: Chronic. Platelets 121, previously 141 on 03/10/17. No signs of bleeding. Will monitor, repeat labs in am. 5. Dementia: At baseline. Resume home Aricept, Namenda. 6. DM: Sliding scale w/ Accu-Cheks. Hold Metformin for possibility of further cardiac intervention. 7. DVT Prophylaxis: SCD/Teds. 8. Social work for d/c planning as needed. 9. Case discussed w/ ER physician at length. Flower Durán MD Mar 22, 2017 04:27
[2017-03-22] MEDS ORDERED: NITROGLYCERIN 2% OINT 1 GM PACKET TOPICAL PRN (04:30)
[2017-03-22] MEDS: SODIUM CHLOR 0.9% 1000 ML INJ 1,000 ML IV SCH ×2 (05:18→14:00)
[2017-03-22] MEDS ORDERED: PT OWN NAMENDA XR 28 MG PO SCH (09:00)
[2017-03-22] MEDS: SODIUM CHLORIDE 0.9% FLUSH 10 ML FLUSH IV FLUSH SCH ×2 (11:31→21:10)
[2017-03-22] MEDS: ASPIRIN 81 MG CHEW TAB CHEW SCH (11:32)
[2017-03-22] MEDS: FERROUS SULFATE 325 MG (65 MG ELEMENTAL IRON) TAB PO SCH (11:32)
[2017-03-22] MEDS: DILTIAZEM-CD 120 MG CAP ER PO SCH (11:32)
[2017-03-22] MEDS: FAMOTIDINE 20 MG TAB PO SCH (11:32)
[2017-03-22] MEDS: DOCUSATE SODIUM 50 MG/SENNA 8.6 MG TAB PO SCH ×2 (11:32→21:10)
[2017-03-22] MEDS: PRAVASTATIN SOD 20 MG TAB PO SCH (11:32)
[2017-03-22] MEDS: METOPROLOL TARTRATE 25 MG TAB PO SCH ×2 (11:33→21:09)
[2017-03-22] MEDS ORDERED: diphenhydrAMINE HCL 50 MG/ML VIAL IV PUSH ONE (12:00)
[2017-03-22] MEDS ORDERED: MIRTAZAPINE 15 MG TAB PO SCH (21:00)
[2017-03-22] MEDS ORDERED: DONEPEZIL HCL 5 MG TAB PO SCH (21:00)
[2017-03-22] MEDS: diphenhydrAMINE HCL 50 MG/ML VIAL IV PUSH SCH (21:10)
--- NOTE | 2017-03-22 21:28 | EKG ---
Date Performed: 03/22/2017 Time Performed: 10:49:45 PTAGE: 86 years EKG: Sinus rhythm LEFT ANTERIOR FASCICULAR BLOCK MODERATE VOLTAGE CRITERIA FOR LVH, CONSIDER NORMAL VARIANT ABNORMAL E CG Compared to prior tracing no significant change DOCTOR: Diane Traore Interpretating Date/Time 03/22/2017 21:28:20
--- NOTE | 2017-03-22 22:03 | EKG ---
Date Performed: 03/22/2017 Time Performed: 02:42:50 PTAGE: 86 years EKG: Sinus rhythm WITH OCCASIONAL SUPRAVENTRICULAR PREMATURE COMPLEXES LEFT ANTERIOR FASCICULAR BLOCK MODERATE VOLTAGE CRITERIA FOR LVH, CONSIDER NORMAL VARIANT ABNORMAL ECG Compared to prior tracing no significant allyn DOCTOR: Diane Traore Interpretating Date/Time 03/22/2017 22:03:17
[2017-03-23] MEDS: SODIUM CHLOR 0.9% 1000 ML INJ 1,000 ML IV SCH ×2 (00:38→08:46)
[2017-03-23 03:41] VITALS: BP 138/63; PULSE 59; RESP 18; TEMP 97.9; O2SAT 98
[2017-03-23] MEDS: diphenhydrAMINE HCL 50 MG/ML VIAL IV PUSH SCH ×2 (04:37→13:38)
[2017-03-23 07:27] VITALS: BP 198/76; PULSE 83; RESP 18; TEMP 96.8; O2SAT 98
[2017-03-23] MEDS: SODIUM CHLORIDE 0.9% FLUSH 10 ML FLUSH IV FLUSH SCH (08:35)
[2017-03-23] MEDS: ASPIRIN 81 MG CHEW TAB CHEW SCH (08:43)
[2017-03-23] MEDS: FAMOTIDINE 20 MG TAB PO SCH (08:43)
[2017-03-23] MEDS: PRAVASTATIN SOD 20 MG TAB PO SCH (08:43)
[2017-03-23] MEDS: DILTIAZEM-CD 120 MG CAP ER PO SCH (08:44)
[2017-03-23] MEDS: FERROUS SULFATE 325 MG (65 MG ELEMENTAL IRON) TAB PO SCH (08:44)
[2017-03-23] MEDS: METOPROLOL TARTRATE 25 MG TAB PO SCH (08:45)
[2017-03-23] MEDS: DOCUSATE SODIUM 50 MG/SENNA 8.6 MG TAB PO SCH (08:45)
[2017-03-23] MEDS ORDERED: MEMANTINE HCL 5 MG TAB PO SCH (09:00)
[2017-03-23 09:06] LABS: AUTOMATED NEUTROPHIL # 4.8 TH/MM3 (1.8-7.7); BASOPHIL % 0.3 % (0.0-2.0); EOSINOPHIL # 0.2 TH/MM3 (0-0.4); EOSINOPHIL % 2.8 % (0.0-4.0); HEMATOCRIT 34.1 % (35.0-46.0); HEMO FLAGS DIFF FINAL; LYMPH % 21.5 % (9.0-44.0); LYMPHOCYTE # 1.5 TH/MM3 (1.0-4.8); MEAN CELL VOLUME 88.7 FL (80.0-100.0); MEAN CORPUSCULAR HEMOGLOBIN 29.5 PG (27.0-34.0); MEAN CORPUSCULAR HGB CONC 33.3 % (32.0-36.0); MONO % 7.1 % (0.0-8.0); NEUT % 68.3 % (16.0-70.0); PLATELET COUNT 114 TH/MM3 (150-450); RED BLOOD COUNT 3.84 MIL/MM3 (4.00-5.30); RED CELL DISTRIBUTION WIDTH 14.1 % (11.6-17.2)
[2017-03-23 09:25] LABS: ANION GAP 9 MEQ/L (5-15); AST (GOT) 24 U/L (15-37); BICARBONATE 23.5 MEQ/L (21.0-32.0); BLOOD UREA NITROGEN 16 MG/DL (7-18); CHLORIDE 108 MEQ/L (98-107); GLOMERULAR FILTRATION RATE 61 ML/MIN (>89); POTASSIUM 3.6 MEQ/L (3.5-5.1); SODIUM (NA) 140 MEQ/L (136-145)
[2017-03-23 09:26] LABS: ALT (GPT) 15 U/L (10-53)
[2017-03-23 09:27] LABS: ALKALINE PHOSPHATASE 50 U/L (45-117); TOTAL BILIRUBIN ADULT 0.6 MG/DL (0.2-1.0)
[2017-03-23] MEDS ORDERED: GLIP1TAB60 PO (10:47)
--- NOTE | 2017-03-23 10:55 | HHI.PR ---
Subjective Remarks And says she is feeling all right. Denies any pain. Denies any chest pain or shortness of breath. Denies any nausea or vomiting. Discussed with nurse. Patient has had no nausea, no vomiting, no diarrhea. Objective Vital Signs Date Time Temp Pulse Resp B/P (MAP) Pulse Ox O2 Delivery O2 Flow Rate FiO2 03/23/17 07:27 96.8 83 18 198/76 (116) 98 03/23/17 03:41 97.9 59 18 138/63 (88) 98 03/22/17 23:43 98.0 50 18 138/78 (98) 95 03/22/17 23:00 76 03/22/17 19:49 97.9 71 18 101/53 (69) 96 03/22/17 18:14 98.0 73 16 109/73 (85) 96 03/22/17 15:10 62 03/22/17 13:57 98.0 68 16 117/56 (76) 95 Result Diagram: 03/23/17 0829 03/23/17828 Objective Remarks GENERAL: Patient lying in bed. Appears couple. SKIN: Warm and dry. HEAD: Normocephalic. EYES: No scleral icterus. No injection or drainage. NECK: Supple, trachea midline. No JVD. CARDIOVASCULAR: Regular rate and rhythm without murmurs, gallops, or rubs. RESPIRATORY: Breath sounds equal bilaterally. No accessory muscle use. GASTROINTESTINAL: Abdomen soft, non-tender, nondistended. MUSCULOSKELETAL: No cyanosis, or edema. BACK: Nontender without obvious deformity. No CVA tenderness. A/P Assessment and Plan // Intractable NV: c/o nausea/vomiting w/ occasional diarrhea x3 days, no fever , chills or sick contacts. CT Abd/Pelvis w/ no acute findings, images reviewed by me. Likely viral gastroenteritis, however r/o atypical presentation of ACS in light of elevated trop. Analgesics/antiemetics, IVF. = 03/23 suspect that nausea and vomiting could be secondary to metformin, which is not recommended secondary to patient's decreased GFR. Her nausea appears to have resolved off of metformin. We will start her on low-dose glipizide at discharge. // Elevated Trop: Trop 0.07, EKG w/ no acute ischemia. No c/o chest pain. As above, R/o atypical presentation of ACS. Check serial cardiac enzymes, resume home ASA, Statin. Start Metoprolol. NTG/Morphine prn if needed. Consult Cardio as needed. = Patient denies any chest pain or shortness of breath. Troponins remained stable, nausea resolved. // Renal Insufficiency: Chronic. Creatinine 1.11, previously 1.20 on 03/10/17. U/a negative. IVF for hydration, repeat labs in am = Improved with IV fluids. //Thrombocytopenia: Chronic. Platelets 121, previously 141 on 03/10/17. No signs of bleeding. Will monitor, repeat labs in am. = Platelets 114. Overall stable. No signs of bleeding. // Dementia: At baseline. Continue on home Aricept, Namenda. //DM: Sliding scale w/ Accu-Cheks. Hold Metformin for possibility of further cardiac intervention. = Continue metformin secondary to nausea and vomiting. Start on low-dose glipizide. //DVT Prophylaxis: SCD/Teds. Discharge Planning Discharge to [facility] in good condition. Activity ad josh. Diabetic diet. Please see discharge medication reconciliation for medication list. Kory Roberts MD Mar 23, 2017 10:55
[2017-03-23] MEDS ORDERED: CYAN1000P IM (12:00)
[2017-03-23 12:02] VITALS: BP 141/65; PULSE 63; RESP 18; TEMP 96.7; O2SAT 98
--- NOTE | 2017-03-23 16:39 | HHI.FF ---
Face to Face Verification Diagnosis: (1) Dementia Physical Therapy Order: Evaluate and Treat Home Health Nursing Order: Nursing assessment with vital signs Instructions: Home health nursing for medication management. I have seen patient Munira Clemente on 03/23/17. My clinical findings support the need for the requested home health care services because: Med compliance is questionable I certify that my clinical findings support that this patient is homebound because: Unsafe to leave home unassisted Kory Roberts MD Mar 23, 2017 16:39
== END 2017-03-23 18:00 | disposition home or self-care (01) ==
LOC: NEPC 02:10 → NEDA 03:59 → NEPHCDU 10:06
PROVIDERS: ADMIT Internal Medicine; ATTEND Internal Medicine
DX: A08.4 Viral intestinal infection, unspecified (principal); R74.8 Abnormal levels of other serum enzymes; R53.1 Weakness; E78.00 Pure hypercholesterolemia, unspecified; F03.90 Unspecified dementia, unspecified severity, without behavioral disturbance, psychotic disturbance, mood disturbance, and anxiety; E11.9 Type 2 diabetes mellitus without complications; I10 Essential (primary) hypertension; N28.9 Disorder of kidney and ureter, unspecified; D69.6 Thrombocytopenia, unspecified; R94.31 Abnormal electrocardiogram [ECG] [EKG]
CPT/HCPCS: 74176; 80053; 83690; 84484; 85025; 85610; 85730; 93005; 96361; 96374; 96376; 99285; G0378; J1200; J7030

== ENCOUNTER 2017-04-05 12:44 | Observation (INO) | payer OTHER ==
[2017-04-05] VITALS (9 sets, daily range): BP systolic 93–144; BP diastolic 50–65; PULSE 71–100; RESP 16–26; TEMP 97.5–97.9; O2SAT 94–96
[~2017-04-05] VITALS: Ht 165.1 cm; Wt 64.0 kg
[~2017-04-05 12:44] MED LIST changes: -B-COINJ IM; +CYAN1000P IM; +FERR325T8 PO; +GLIP1TAB60 PO; -MACR100C2 PO; -METF1000 PO; +MIRT1TAB PO; +TYLE325T PO; +nystatin
--- NOTE | 2017-04-05 12:55 | PD ---
Physical Exam Date Seen by Provider: Apr 05, 2017 Time Seen by Provider: 12:53 Narrative 86-year-old white female presents to emergency department with complaints of 1- 2 days of feeling weak, shaky, nauseous with vomiting. No associated fever chills, chest pain, shortness of breath, abdominal pain, dysuria or frequency. Vital signs reviewed. Pt. waiting for bed placement. Data Data Last Documented VS Vital Signs Date Time Temp Pulse Resp B/P (MAP) Pulse Ox O2 Delivery O2 Flow Rate FiO2 04/05/17 12:46 97.5 100 26 96 Room Air [facility] Medical Record Reviewed: No Supervised Visit with MEAGAN: Eduin Beaver Apr 05, 2017 12:55
--- NOTE | 2017-04-05 12:55 | PD ---
Physical Exam Date Seen by Provider: Apr 05, 2017 Time Seen by Provider: 12:53 Narrative 86-year-old white female presents to emergency department with complaints of 1- 2 days of feeling weak, shaky, nauseous with vomiting. No associated fever chills, chest pain, shortness of breath, abdominal pain, dysuria or frequency. Vital signs reviewed. Pt. waiting for bed placement. Data Data Last Documented VS Vital Signs Date Time Temp Pulse Resp B/P (MAP) Pulse Ox O2 Delivery O2 Flow Rate FiO2 04/05/17 12:46 97.5 100 26 96 Room Air [facility] Medical Record Reviewed: No Supervised Visit with MEAGAN: Eduin Beaver Apr 05, 2017 12:55
--- NOTE | 2017-04-05 12:55 | PD ---
Physical Exam Date Seen by Provider: Apr 05, 2017 Time Seen by Provider: 12:53 Narrative 86-year-old white female presents to emergency department with complaints of 1- 2 days of feeling weak, shaky, nauseous with vomiting. No associated fever chills, chest pain, shortness of breath, abdominal pain, dysuria or frequency. Vital signs reviewed. Pt. waiting for bed placement. Data Data Last Documented VS Vital Signs Date Time Temp Pulse Resp B/P (MAP) Pulse Ox O2 Delivery O2 Flow Rate FiO2 04/05/17 12:46 97.5 100 26 96 Room Air [facility] Medical Record Reviewed: No Supervised Visit with MEAGAN: Eduin Beaver Apr 05, 2017 12:55
[2017-04-05] MEDS ORDERED: SODIUM CHLOR 0.9% 1000 ML INJ 1,000 ML IV SCH ×2 (13:21)
[2017-04-05] MEDS ORDERED: ONDANSETRON HCL 4 MG/2 ML VIAL IVP ONE ×2 (13:30)
[2017-04-05] MEDS ORDERED: SODIUM CHLORIDE 0.9% FLUSH 10 ML FLUSH IV FLUSH PRN ×4 (13:30→16:15)
--- NOTE | 2017-04-05 13:31 | PD ---
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 The patient lives alone at an independent living facility in an apartment at [facility]. She presents with 10 days of generalized weakness, decreased appetite, nausea and vomiting. She reports 2-3 episodes a day of emesis as well as just general tiredness and difficulty with performing activities of daily living. She denies chest pain, shortness of breath, cough or congestion, abdominal pain, diarrhea. She does not that she has been constipated for an unknown duration of time. She denies flank pain, fevers or chills. The patient was seen here with similar symptoms on March 23. She had a negative CT abdomen and pelvis. Her troponin was slightly elevated initially 0.07 and it trended down during her hospitalization and she had no symptoms suggesting cardiac etiology. It was recommended that she discontinue her metformin and start her glipizide. She appears to have done so and her symptoms have persisted. She does have a history of dementia. Primary care is Petar Collier. No other complaints at this time. PFSH Past Medical History Anxiety: No Depression: No Heart Rhythm Problems: No Cancer: No Cardiovascular Problems: Yes High Cholesterol: Yes Chest Pain: No Congestive Heart Failure: No Dementia: Yes Diabetes: Yes Patient Takes Glucophage: No Diminished Hearing: Yes Endocrine: Yes Gastrointestinal Disorders: Yes (abd sx) Genitourinary: No (UTI) Hypertension: Yes Immune Disorder: No (angioedema) Musculoskeletal: Yes (ankle fx, shoulder fx, arthritis) Neurologic: Yes (dementia) Reproductive: No Respiratory: No Immunizations Current: Yes Thyroid Disease: No Menopausal: Yes Past Surgical History Other Surgery: Yes (ankle fx, shoulder fx, D&C, abd.) Social History Alcohol Use: Yes (OCCASIONAL) Tobacco Use: No Substance Use: No Allergies-Medications (Allergen,Severity, Reaction): Coded Allergies: Influenza Virus Vaccines (Unverified Allergy, Severe, 04/05/17) ciprofloxacin (Unverified Allergy, Severe, 04/05/17) lisinopril (Verified Allergy, Severe, Edema, 04/05/17) losartan (Unverified Allergy, Severe, 04/05/17) Reported Meds & Prescriptions Reported Meds & Active Scripts Active Glipizide ER (Glipizide) 2.5 Mg Tiarra 2.5 Mg PO DAILY Take with breakfast or first main meal of the day Reported Cyanocobalamin Inj (Cyanocobalamin) 1,000 Mcg/Ml Inj 1,000 Mcg IM MONTHLY Tylenol (Acetaminophen) 325 Mg Tab 650 Mg PO Q4H PRN Mirtazapine 7.5 Mg Tab 7.5 Mg PO HS Ferrous Sulfate 325 Mg (65 Mg Iron) Tablet 325 Mg PO DAILY Vitamin D3 (Cholecalciferol) 2,000 Unit Cap 2,000 Units PO DAILY Epinephrine Inj (Epinephrine HCl) 1 Mg/Ml Inj 0.3 Mg SQ ONCE PRN Give with any signs of respiratory distress. Simvastatin 10 Mg Tab 10 Mg PO DAILY Ranitidine (Ranitidine HCl) 150 Mg Tab 150 Mg PO DAILY Namenda Xr (Memantine) 28 Mg Caper 28 Mg PO DAILY Donepezil 5 Mg Tab 5 Mg PO HS Diphenhydramine (Diphenhydramine HCl) 25 Mg Cap 25 Mg PO HS PRN Diltiazem CD 24 HR 120 Mg Caper 120 Mg PO DAILY Calcium 600 with Vitamin D (Calcium Carbonate-Cholecalciferol) 600-400 mg-Unit Tab 1 Tab PO BID Aspirin Low Dose (Aspirin) 81 Mg Chew 81 Mg CHEW DAILY Review of Systems Except as stated in HPI: all other systems reviewed are Neg Physical Exam Narrative GENERAL: Frail and elderly female who is in no acute distress. SKIN: Warm and dry. HEAD: Atraumatic. Normocephalic. EYES: Pupils equal and round. No scleral icterus. No injection or drainage. ENT: No nasal bleeding or discharge. Mucous membranes pink and moist. NECK: Trachea midline. No JVD. CARDIOVASCULAR: Regular rate and rhythm. No murmur appreciated. RESPIRATORY: No accessory muscle use. Clear to auscultation. Breath sounds equal bilaterally. GASTROINTESTINAL: Abdomen soft, non-tender, nondistended. Hepatic and splenic margins not palpable. Rectal examination reveals a fecal impaction which was easily disimpacted manually. MUSCULOSKELETAL: No obvious deformities. No clubbing. No cyanosis. No edema. NEUROLOGICAL: Awake and alert. No obvious cranial nerve deficits. Motor grossly within normal limits. Normal speech. PSYCHIATRIC: Appropriate mood and affect; insight and judgment normal. Data Data Last Documented VS Vital Signs Date Time Temp Pulse Resp B/P (MAP) Pulse Ox O2 Delivery O2 Flow Rate FiO2 04/05/17 15:24 16 94 Room Air 04/05/17 15:00 88 105/56 (72) 04/05/17 12:46 97.5 Orders Orders Complete Blood Count With Diff (04/05/17 13:21) Comprehensive Metabolic Panel (04/05/17 13:21) Lipase (04/05/17 13:21) Urinalysis - C+S If Indicated (04/05/17 13:21) Iv Access Insert/Monitor (04/05/17 13:21) Ecg Monitoring (04/05/17 13:21) Oximetry (04/05/17 13:21) Ondansetron Inj (Zofran Inj) (04/05/17 13:30) Sodium Chloride 0.9% Flush (Ns Flush) (04/05/17 13:30) Electrocardiogram (04/05/17 13:21) Sodium Chlor 0.9% 1000 Ml Inj (Ns 1000 M (04/05/17 13:21) Chest, Single Ap (04/05/17 ) Thyroid Stimulating Hormone (04/05/17 13:26) Cath For Specimen (04/05/17 13:27) Admit Order (Ed Use Only) (04/05/17 16:02) Labs Laboratory Tests Test 04/05/17 14:40 04/05/17 14:49 White Blood Count 8.9 TH/MM3 Red Blood Count 3.97 MIL/MM3 Hemoglobin 12.0 GM/DL Hematocrit 35.3 % Mean Corpuscular Volume 88.9 FL Mean Corpuscular Hemoglobin 30.3 PG Mean Corpuscular Hemoglobin Concent 34.0 % Red Cell Distribution Width 14.1 % Platelet Count 146 TH/MM3 Mean Platelet Volume 8.8 FL Neutrophils (%) (Auto) 78.9 % Lymphocytes (%) (Auto) 13.9 % Monocytes (%) (Auto) 6.2 % Eosinophils (%) (Auto) 0.8 % Basophils (%) (Auto) 0.2 % Neutrophils # (Auto) 7.0 TH/MM3 Lymphocytes # (Auto) 1.2 TH/MM3 Monocytes # (Auto) 0.6 TH/MM3 Eosinophils # (Auto) 0.1 TH/MM3 Basophils # (Auto) 0.0 TH/MM3 CBC Comment DIFF FINAL Differential Comment Blood Urea Nitrogen 20 MG/DL Creatinine 1.27 MG/DL Random Glucose 182 MG/DL Total Protein 6.6 GM/DL Albumin 3.2 GM/DL Calcium Level 9.6 MG/DL Alkaline Phosphatase 60 U/L Aspartate Amino Transf (AST/SGOT) 16 U/L Alanine Aminotransferase (ALT/SGPT) 15 U/L Total Bilirubin 0.5 MG/DL Sodium Level 136 MEQ/L Potassium Level 4.5 MEQ/L Chloride Level 103 MEQ/L Carbon Dioxide Level 24.7 MEQ/L Anion Gap 8 MEQ/L Estimat Glomerular Filtration Rate 40 ML/MIN Lipase 205 U/L Thyroid Stimulating Hormone 3rd Gen 4.390 uIU/ML Urine Color YELLOW Urine Turbidity HAZY Urine pH 7.0 Urine Specific [place] 1.016 Urine Protein NEG mg/dL Urine Glucose (UA) NEG mg/dL Urine Ketones 10 mg/dL Urine Occult Blood NEG Urine Nitrite NEG Urine Bilirubin NEG Urine Urobilinogen 4.0 MG/DL Urine Leukocyte Esterase TRACE Urine RBC LESS THAN 1 /hpf Urine WBC 5 /hpf Urine Squamous Epithelial Cells <1 /hpf Urine Amorphous Sediment RARE Urine Bacteria RARE /hpf Microscopic Urinalysis Comment CULT NOT INDICATED MDM Medical Decision Making Medical Screen Exam Complete: Yes Emergency Medical Condition: Yes Medical Record Reviewed: Yes Differential Diagnosis Failure to thrive, myxedema, dehydration, electrolyte abnormality, gastroenteritis Narrative Course The patient will be placed on ECG monitoring pulse oximetry. A 12-lead EKG will be obtained. Plan is for basic lab work, urinalysis, chest x-ray. The patient's lab work is reassuring. She does have a mildly elevated TSH. The patient and her family friend feel that she is too weak to go home. Therefore she will be admitted for observation. Diagnosis Primary Impression: Generalized weakness Additional Impression: Nausea and vomiting Qualified Codes: R11.2 - Nausea with vomiting, unspecified Admitting Information Admitting Physician Requests: Observation Ez Oro Apr 05, 2017 13:31
--- NOTE | 2017-04-05 14:15 | RADRPT ---
EXAM DATE/TIME: 04/05/2017 13:39 [place] COMPARISON: CHEST SINGLE AP, March 10, 2017, 14:52. INDICATIONS : Shortness of breath. MEDICAL HISTORY : Hypertension. SURGICAL HISTORY : None. ENCOUNTER: Initial ACUITY: 1 day PAIN SCORE: 0/10 LOCATION: Bilateral chest FINDINGS: There are no new focal pleural or clinical opacities. Linear parenchymal opacities in the left lung b ase are unchanged. Cardiomediastinal contours are stable. Remainder of the exam is unchanged. CONCLUSION: 1. No acute abnormality or significant interval change. Cameron Ponce MD on April 05, 2017 at 14:12 Board Certified Radiologist. This report was verified electronically.
[2017-04-05 14:54] LABS: BASOPHIL % 0.2 % (0.0-2.0); EOSINOPHIL # 0.1 TH/MM3 (0-0.4); EOSINOPHIL % 0.8 % (0.0-4.0); HEMATOCRIT 35.3 % (35.0-46.0); LYMPH % 13.9 % (9.0-44.0); LYMPHOCYTE # 1.2 TH/MM3 (1.0-4.8); MEAN CELL VOLUME 88.9 FL (80.0-100.0); MEAN CORPUSCULAR HEMOGLOBIN 30.3 PG (27.0-34.0); MEAN PLATELET VOLUME 8.8 FL (7.0-11.0); MONO % 6.2 % (0.0-8.0); MONOCYTE # 0.6 TH/MM3 (0-0.9); NEUT % 78.9 % (16.0-70.0); PLATELET COUNT 146 TH/MM3 (150-450); RED BLOOD COUNT 3.97 MIL/MM3 (4.00-5.30); RED CELL DISTRIBUTION WIDTH 14.1 % (11.6-17.2); WHITE BLOOD COUNT 8.9 TH/MM3 (4.0-11.0)
[2017-04-05 15:04] LABS: AMORPHOUS SEDIMENT, URINE RARE; BACTERIA, URINE RARE /hpf; BILIRUBIN, URINE NEG (NEG); BLOOD, URINE NEG (NEG); GLUCOSE,URINE NEG (NEG); KETONE, URINE 10 mg/dL (NEG); NITRITE,URINE NEG (NEG); SQUAMOUS EPITHELIAL CELL URINE <1 /hpf (0-5); URINE COLOR YELLOW (YELLW/STRAW); URINE LEUKOCYTE ESTERASE TRACE (NEG)
[2017-04-05 15:13] LABS: ALBUMIN 3.2 GM/DL (3.4-5.0); AST (GOT) 16 U/L (15-37); BICARBONATE 24.7 MEQ/L (21.0-32.0); BLOOD UREA NITROGEN 20 MG/DL (7-18); CALCIUM 9.6 MG/DL (8.5-10.1); CHLORIDE 103 MEQ/L (98-107); CREATININE 1.27 MG/DL (0.50-1.00); GLOMERULAR FILTRATION RATE 40 ML/MIN (>89); GLUCOSE,RANDOM 182 MG/DL (74-106); LIPASE 205 U/L (73-393); SODIUM (NA) 136 MEQ/L (136-145)
[2017-04-05 15:16] LABS: ALKALINE PHOSPHATASE 60 U/L (45-117); ALT (GPT) 15 U/L (10-53); TOTAL BILIRUBIN ADULT 0.5 MG/DL (0.2-1.0); TOTAL PROTEIN 6.6 GM/DL (6.4-8.2)
[2017-04-05] MEDS ORDERED: ONDANSETRON HCL 4 MG/2 ML VIAL IVP PRN ×2 (16:15)
[2017-04-05] MEDS ORDERED: SENNOSIDES 8.6 MG TAB PO PRN ×2 (16:15)
[2017-04-05] MEDS ORDERED: MAGNESIUM HYDROXIDE SUSP 30 ML CUP PO PRN ×2 (16:15)
[2017-04-05] MEDS ORDERED: ACETAMINOPHEN 325 MG TAB PO PRN ×2 (16:15)
[2017-04-05] MEDS ORDERED: NALOXONE HCL 0.4 MG/ML AMP IV PUSH PRN ×2 (16:15)
[2017-04-05] MEDS ORDERED: LACTULOSE SYRUP 20 GM/30 ML CUP PO PRN ×2 (16:15)
[2017-04-05] MEDS ORDERED: BISACODYL 10 MG SUPP RECTAL PRN ×2 (16:15)
--- NOTE | 2017-04-05 17:43 | HHI.HP ---
[facility] Service [facility] Primary Care Physician Non-Staff Admission Diagnosis generalized weakness Diagnoses: Chief Complaint: generalized weakness Travel History International Travel<30 Days: No Contact w/Intl Traveler <30 Da: No Traveled to Known Affected Are: No History of Present Illness Written by Nohemi Duval, acting as scribe for Dr. Warren on 04/05/17 at 17: 37. This note was transcribed by scribe Nohemi Duval PA-C. I, Dr. Nader Warren personally performed the history, physical exam, and medical decision making; and confirmed the accuracy of the information in the transcribed note. Authenticated by Dr. Nader Warren on 04/05/17 at 23:34. 86-year-old female with history of dementia, diabetes, arthritis, hypertension, hyperlipidemia, presents with a 10 day history of generalized weakness, decreased appetite, and a 2-3 day history of nausea/vomiting. The patient is awake, alert, and oriented to person, place, month/year but not events leading up to admission. She has dementia and memory loss therefore very poor historian. The patient's son is at bedside who is the POA and assists with the history. The patient lives at [place] in the assisted living facility. The son explains that the patient has just become more weak, doesn't want to get out of bed, doesn't want to participate in activities, and has a poor appetite. The son also reports on 03/18/17 the patient weighed 140lbs and he is worried that she is losing weight. The patient was recently admitted 03/22-03/23 for nausea/vomiting and weakness. The nausea/vomiting was suspected to be due to metformin and she was switched to glipizide however her symptoms have persisted. The son is worried that the patient is dehydrated. He states that she usually "perks up" after receiving IV fluids. The patient denies any other medical complaints including no fevers/chills, abdominal pain, dysuria, or hematuria. The son feels the patient may need to be at a facility with more assistance. He is agreeable to discuss goals of care with palliative care team. Review of Systems ROS Limitations: Poor Historian Except as stated in HPI: all other systems reviewed are Neg Past Family Social History Past Medical History dementia diabetes arthritis hypertension hyperlipidemia Past Surgical History Ankle surgery Shoulder surgery D&C Abdominal surgery Reported Medications Reported Meds & Active Scripts Active Glipizide ER (Glipizide) 2.5 Mg Tiarra 2.5 Mg PO DAILY Take with breakfast or first main meal of the day Reported Cyanocobalamin Inj (Cyanocobalamin) 1,000 Mcg/Ml Inj 1,000 Mcg IM MONTHLY Tylenol (Acetaminophen) 325 Mg Tab 650 Mg PO Q4H PRN Mirtazapine 7.5 Mg Tab 7.5 Mg PO HS Ferrous Sulfate 325 Mg (65 Mg Iron) Tablet 325 Mg PO DAILY Vitamin D3 (Cholecalciferol) 2,000 Unit Cap 2,000 Units PO DAILY Epinephrine Inj (Epinephrine HCl) 1 Mg/Ml Inj 0.3 Mg SQ ONCE PRN Give with any signs of respiratory distress. Simvastatin 10 Mg Tab 10 Mg PO DAILY Ranitidine (Ranitidine HCl) 150 Mg Tab 150 Mg PO DAILY Namenda Xr (Memantine) 28 Mg Caper 28 Mg PO DAILY Donepezil 5 Mg Tab 5 Mg PO HS Diphenhydramine (Diphenhydramine HCl) 25 Mg Cap 25 Mg PO HS PRN Diltiazem CD 24 HR 120 Mg Caper 120 Mg PO DAILY Calcium 600 with Vitamin D (Calcium Carbonate-Cholecalciferol) 600-400 mg-Unit Tab 1 Tab PO BID Aspirin Low Dose (Aspirin) 81 Mg Chew 81 Mg CHEW DAILY Allergies: Coded Allergies: Influenza Virus Vaccines (Unverified Allergy, Severe, 04/05/17) ciprofloxacin (Unverified Allergy, Severe, 04/05/17) lisinopril (Verified Allergy, Severe, Edema, 04/05/17) losartan (Unverified Allergy, Severe, 04/05/17) Active Ordered Medications Current Medications Medications (Trade) Dose Ordered Sig/Goran Route Start Time Stop Time Status Last Admin Sodium Chloride 1,000 ml @ 100 mls/hr Q10H IV 04/05/17 17:00 (NS Flush) 2 ml UNSCH PRN IV FLUSH 04/05/17 16:15 (NS Flush) 2 ml BID IV FLUSH 04/05/17 21:00 (Tylenol) 650 mg Q4H PRN PO 04/05/17 16:15 (Zofran Inj) 4 mg Q6H PRN IVP 04/05/17 16:15 (Heparin Inj) 5,000 units Q12H SQ 04/05/17 17:00 (Narcan Inj) 0.4 mg UNSCH PRN IV PUSH 04/05/17 16:15 (Milk Of Magnesia Liq) 30 ml Q12H PRN PO 04/05/17 16:15 (Senokot) 17.2 mg Q12H PRN PO 04/05/17 16:15 (Dulcolax Supp) 10 mg DAILY PRN RECTAL 04/05/17 16:15 (Lactulose Liq) 30 ml DAILY PRN PO 04/05/17 16:15 Family History Positive for diabetes Social History Denies any tobacco, alcohol, or illicit drug use. Lives at [facility] Physical Exam Vital Signs Vital Signs Date Time Temp Pulse Resp B/P (MAP) Pulse Ox O2 Delivery O2 Flow Rate FiO2 04/05/17 15:24 16 94 Room Air 04/05/17 15:00 88 18 105/56 (72) 95 Room Air 04/05/17 13:00 87 16 93/56 (68) 94 Room Air 04/05/17 12:46 97.5 100 26 96 Room Air Physical Exam GENERAL: Well-developed, well-nourished elderly female patient in [facility]. SKIN: Warm and dry. HEAD: Atraumatic. Normocephalic. EYES: Pupils equal and round. No scleral icterus. No injection or drainage. ENT: No nasal bleeding or discharge. Mucous membranes pink and moist. NECK: Trachea midline. No JVD. CARDIOVASCULAR: Regular rate and rhythm. 2/6 systolic murmur best heard at LUSB. RESPIRATORY: No accessory muscle use. Clear to auscultation. Breath sounds equal bilaterally. GASTROINTESTINAL: Abdomen soft, non-tender, nondistended. Hepatic and splenic margins not palpable. MUSCULOSKELETAL: Extremities without clubbing, cyanosis, or edema. No obvious deformities. NEUROLOGICAL: Awake and alert. No obvious cranial nerve deficits. Motor grossly within normal limits. Normal speech. PSYCHIATRIC: Appropriate mood and affect; insight and judgment fair. Laboratory Laboratory Tests Test 04/05/17 14:40 04/05/17 14:49 04/05/17 16:48 White Blood Count 8.9 Red Blood Count 3.97 Hemoglobin 12.0 Hematocrit 35.3 Mean Corpuscular Volume 88.9 Mean Corpuscular Hemoglobin 30.3 Mean Corpuscular Hemoglobin Concent 34.0 Red Cell Distribution Width 14.1 Platelet Count 146 Mean Platelet Volume 8.8 Neutrophils (%) (Auto) 78.9 Lymphocytes (%) (Auto) 13.9 Monocytes (%) (Auto) 6.2 Eosinophils (%) (Auto) 0.8 Basophils (%) (Auto) 0.2 Neutrophils # (Auto) 7.0 Lymphocytes # (Auto) 1.2 Monocytes # (Auto) 0.6 Eosinophils # (Auto) 0.1 Basophils # (Auto) 0.0 CBC Comment DIFF FINAL Differential Comment Blood Urea Nitrogen 20 Creatinine 1.27 Random Glucose 182 Total Protein 6.6 Albumin 3.2 Calcium Level 9.6 Alkaline Phosphatase 60 Aspartate Amino Transf (AST/SGOT) 16 Alanine Aminotransferase (ALT/SGPT) 15 Total Bilirubin 0.5 Sodium Level 136 Potassium Level 4.5 Chloride Level 103 Carbon Dioxide Level 24.7 Anion Gap 8 Estimat Glomerular Filtration Rate 40 Lipase 205 Thyroid Stimulating Hormone 3rd Gen 4.390 Urine Color YELLOW Urine Turbidity HAZY Urine pH 7.[address] 1.016 Urine Protein NEG Urine Glucose (UA) NEG Urine Ketones 10 Urine Occult Blood NEG Urine Nitrite NEG Urine Bilirubin NEG Urine Urobilinogen 4.0 Urine Leukocyte Esterase TRACE Urine RBC LESS THAN 1 Urine WBC 5 Urine Squamous Epithelial Cells <1 Urine Amorphous Sediment RARE Urine Bacteria RARE Microscopic Urinalysis Comment CULT NOT INDICATED Lactic Acid Level 1.1 Result Diagram: 04/05/17 1440 04/05/17 1440 Imaging Last Impressions Chest X-Ray 04/05/17 0000 Signed Impressions: Service Date/Time: Wednesday, April 05, 2017 13:39 - CONCLUSION: 1. No acute abnormality or significant interval change. MD Lyly Corley VTE Risk Assessment Caprini VTE Risk Assessment: Mod/High Risk (score >= 2) Caprini Risk Assessment Model Point Value = 1 Point Value = 2 Point Value = 3 Point Value = 5 Age 41-60 Minor surgery BMI > 25 kg/m2 Swollen legs Varicose veins or History of unexplained or recurrent spontaneous Oral contraceptives or hormone replacement Sepsis (< 1 month) Serious lung disease, including pneumonia (< 1 month) Abnormal pulmonary function Acute myocardial infarction Congestive heart failure (< 1 month) History of inflammatory bowel disease Medical patient at bed rest Age 61-74 Arthroscopic surgery Major open surgery (> 45 min) Laparoscopic surgery (> 45 min) Malignancy Confined to bed (> 72 hours) Immobilizing plaster cast Central venous access Age >= 75 History of VTE Family history of VTE Factor V Leiden Prothrombin [id number] Lupus anticoagulant Anticardiolipin antibodies Elevated serum homocysteine Heparin-induced thrombocytopenia Other congenital or acquired thrombophilia Stroke (< 1 month) Elective arthroplasty Hip, pelvis, or leg fracture Acute spinal cord injury (< 1 month) Prophylaxis Regimen Total Risk Factor Score Risk Level Prophylaxis Regimen 0-1 Low Early ambulation 2 Moderate Order ONE of the following: *Sequential Compression Device (SCD) *Heparin 5000 units SQ BID 3-4 Higher Order ONE of the following medications: *Heparin 5000 units SQ TID *Enoxaparin/Lovenox 40 mg SQ daily (WT < 150 kg, CrCl > 30 mL/min) *Enoxaparin/Lovenox 30 mg SQ daily (WT < 150 kg, CrCl > 10-29 mL/min) *Enoxaparin/Lovenox 30 mg SQ BID (WT < 150 kg, CrCl > 30 mL/min) AND/OR *Sequential Compression Device (SCD) 5 or more Highest Order ONE of the following medications: *Heparin 5000 units SQ TID (Preferred with Epidurals) *Enoxaparin/Lovenox 40 mg SQ daily (WT < 150 kg, CrCl > 30 mL/min) *Enoxaparin/Lovenox 30 mg SQ daily (WT < 150 kg, CrCl > 10-29 mL/min) *Enoxaparin/Lovenox 30 mg SQ BID (WT < 150 kg, CrCl > 30 mL/min) AND *Sequential Compression Device (SCD) Assessment and Plan Problem List: (1) Generalized weakness ICD Code: R53.1 - Weakness Status: Acute (2) Nausea and vomiting ICD Code: R11.2 - Nausea with vomiting, unspecified Status: Acute (3) Renal insufficiency ICD Code: N28.9 - Disorder of kidney and ureter, unspecified Assessment and Plan 86-year-old female with history of dementia, diabetes, arthritis, hyperlipidemia , presents with a 10 day history of generalized weakness, decreased appetite, and a 2-3 day history of nausea/vomiting. Generalized Weakness: suspect multifactorial secondary to dehydration, nausea/ vomiting, recent hospitalization, and possible worsening dementia. UA negative for UTI. CXR images reviewed and unremarkable. BMP positive for SMUA. Lactic acid 1.1. TSH slightly elevated at 4.390. -Give IVF hydration at 125cc/hr -Consult PT/OT -Consult palliative care SUMA: secondary to dehydration from recent poor oral intake and nausea/vomiting. Cr 1.27, previously Cr 0.88 on 03/23/17. -Give IVF hydration with NS at 125cc/hr -Avoid nephrotoxins -Repeat BMP in am Poor Appetite/Nausea/Vomiting: unclear etiology, possibly gastroenteritis vs secondary to worsening dementia. Lipase and LFTs wnl. -start on diabetic diet with Glucerna shakes tid -continue patient's zantac -consult supervisor cell room -consider initiating megace for appetite stimulation Hypotension: BP 93/56, suspect secondary to dehydration -hold patient's cardizem -give IVF -monitor BP Elevated TSH: mildly elevated at 4.390. -check free T3/T4 Dementia: with possible acute worsening recently. -continue patient's aricept, namenda Diabetes Mellitus: chronic -hold patient's glipizide for now -monitor Accu-checks and cover with SSI Hyperlipidemia: chronic, stable -continue patient's statin DVT Prophylaxis: Heparin sq Discussed Condition With Patient, Patient's Son, ER FIDELINA Problem Qualifiers (1) Nausea and vomiting: Qualified Codes: R11.2 - Nausea with vomiting, unspecified Nohemi Duval PA-C Apr 05, 2017 17:43 Leigh Warren DO Apr 05, 2017 23:34
[2017-04-05] MEDS: HEPARIN SODIUM - SQ 10,000 UNITS/ML VIAL SQ SCH ×2 (18:05)
[2017-04-05] MEDS: SODIUM CHLOR 0.9% 1000 ML INJ 1,000 ML IV SCH ×2 (18:05)
[2017-04-05] MEDS ORDERED: DEXTROSE 50% IN WATER 50 ML VIAL(D50) IV PUSH PRN (18:15)
[2017-04-05] MEDS ORDERED: GLUCAGON 1 MG/ML VIAL OTHER PRN ×2 (18:15)
[2017-04-05 18:27] LABS: FREE T3 3.14 PG/ML (2.18-3.98); FREE T4 1.54 NG/DL (0.76-1.46)
[2017-04-05] MEDS: MIRTAZAPINE 15 MG TAB PO SCH ×2 (20:52)
[2017-04-05] MEDS: DONEPEZIL HCL 5 MG TAB PO SCH ×2 (20:52)
[2017-04-05] MEDS: SODIUM CHLORIDE 0.9% FLUSH 10 ML FLUSH IV FLUSH SCH ×2 (20:52)
[2017-04-05] MEDS: INSULIN ASPART SUPPLEMENTAL SCALE SQ SCH ×2 (20:53)
[2017-04-06 03:35] VITALS: BP 135/59; PULSE 81; RESP 18; TEMP 97.9; O2SAT 95
[2017-04-06] MEDS: SODIUM CHLOR 0.9% 1000 ML INJ 1,000 ML IV SCH ×6 (03:54→17:04)
[2017-04-06 05:51] LABS: AUTOMATED NEUTROPHIL # 3.5 TH/MM3 (1.8-7.7); BASOPHIL % 0.3 % (0.0-2.0); EOSINOPHIL # 0.3 TH/MM3 (0-0.4); EOSINOPHIL % 4.6 % (0.0-4.0); LYMPH % 30.6 % (9.0-44.0); LYMPHOCYTE # 1.9 TH/MM3 (1.0-4.8); MEAN CELL VOLUME 90.7 FL (80.0-100.0); MEAN CORPUSCULAR HEMOGLOBIN 30.2 PG (27.0-34.0); MEAN CORPUSCULAR HGB CONC 33.2 % (32.0-36.0); MONO % 8.5 % (0.0-8.0); MONOCYTE # 0.5 TH/MM3 (0-0.9); PLATELET COUNT 113 TH/MM3 (150-450); RED BLOOD COUNT 3.64 MIL/MM3 (4.00-5.30); RED CELL DISTRIBUTION WIDTH 14.6 % (11.6-17.2); WHITE BLOOD COUNT 6.3 TH/MM3 (4.0-11.0)
[2017-04-06] MEDS: HEPARIN SODIUM - SQ 10,000 UNITS/ML VIAL SQ SCH ×4 (05:56→17:04)
[2017-04-06 06:07] LABS: BICARBONATE 22.8 MEQ/L (21.0-32.0); CALCIUM 8.6 MG/DL (8.5-10.1)
[2017-04-06] MEDS: INSULIN ASPART SUPPLEMENTAL SCALE SQ SCH ×8 (08:00→20:41)
[2017-04-06] MEDS ORDERED: MEMANTINE 28 MG PO SCH ×2 (09:00)
[2017-04-06] MEDS: SODIUM CHLORIDE 0.9% FLUSH 10 ML FLUSH IV FLUSH SCH ×4 (09:00→20:03)
[2017-04-06] MEDS: FAMOTIDINE 20 MG TAB PO SCH ×2 (09:34)
[2017-04-06] MEDS: ASPIRIN 81 MG CHEW TAB CHEW SCH ×2 (09:34)
[2017-04-06] MEDS: CHOLECALCIFEROL (VIT D3) 1000 UNIT TAB PO SCH ×2 (09:35)
[2017-04-06] MEDS: PRAVASTATIN SOD 20 MG TAB PO SCH ×2 (09:35)
[2017-04-06] MEDS: FERROUS SULFATE 325 MG (65 MG ELEMENTAL IRON) TAB PO SCH ×2 (09:35)
--- NOTE | 2017-04-06 12:11 | HHI.PR ---
Subjective Remarks Follow-up for dementia, generalized weakness, acute kidney injury. Patient is currently doing well. She had three fourth of her Glucerna drink. She remains in good mood denies any complaints. No fever or chills. Objective Vitals Vital Signs Date Time Temp Pulse Resp B/P (MAP) Pulse Ox O2 Delivery O2 Flow Rate FiO2 04/06/17 06:05 21 04/06/17 03:35 97.9 81 18 135/59 (84) 95 04/05/17 23:25 97.9 71 18 144/65 (91) 95 04/05/17 21:09 74 136/60 (85) 95 04/05/17 20:11 97.9 79 18 97/50 (66) 95 04/05/17 19:12 82 17 115/55 (75) 96 Room Air 04/05/17 18:00 86 18 118/57 (77) 95 Room Air 04/05/17 15:24 16 94 Room Air 04/05/17 15:00 88 18 105/56 (72) 95 Room Air 04/05/17 13:00 87 16 93/56 (68) 94 Room Air 04/05/17 12:46 97.5 100 26 96 Room Air I/O 04/05/17 04/05/17 04/05/17 04/06/17 04/06/17 04/06/17 07:00 15:00 23:00 07:00 15:00 23:00 Intake Total 1000 ml Balance 1000 ml Intake IV Total 1000 ml Result Diagram: 04/06/17 0517 04/06/17 0517 Imaging Last Impressions Chest X-Ray 04/05/17 0000 Signed Impressions: Service Date/Time: Wednesday, April 05, 2017 13:39 - CONCLUSION: 1. No acute abnormality or significant interval change. Cameron Ponce MD Objective Remarks GENERAL: Alert, oriented 3, NAD. SKIN: Warm and dry. HEAD: Normocephalic. EYES: No scleral icterus. No injection or drainage. NECK: Supple, trachea midline. No JVD or lymphadenopathy. CARDIOVASCULAR: Regular rate and rhythm without gallops, or rubs. There is a systolic murmur over the left sternal border. RESPIRATORY: Breath sounds equal bilaterally. No accessory muscle use. GASTROINTESTINAL: Abdomen soft, non-tender, nondistended. MUSCULOSKELETAL: No cyanosis, or edema. BACK: Nontender without obvious deformity. No CVA tenderness. A/P Problem List: (1) Generalized weakness ICD Code: R53.1 - Weakness Status: Acute (2) Nausea and vomiting ICD Code: R11.2 - Nausea with vomiting, unspecified Status: Acute (3) Renal insufficiency ICD Code: N28.9 - Disorder of kidney and ureter, unspecified Assessment and Plan 86-year-old female with history of dementia, diabetes, arthritis, hyperlipidemia , presents with a 10 day history of generalized weakness, decreased appetite, and a 2-3 day history of nausea/vomiting. Generalized Weakness: suspect multifactorial secondary to dehydration, nausea/ vomiting, recent hospitalization, and possible worsening dementia. UA negative for UTI. CXR images reviewed and unremarkable. BMP positive for SUMA. Lactic acid 1.1. TSH slightly elevated at 4.390. -Give IVF hydration at 125cc/hr -Consult PT/OT -Consult palliative care SUMA: secondary to dehydration from recent poor oral intake and nausea/vomiting. Cr 1.27, previously Cr 0.88 on 03/23/17. -Creatinine improved 1.27 --> 1.00. -Avoid nephrotoxins Poor Appetite/Nausea/Vomiting: unclear etiology, possibly gastroenteritis vs secondary to worsening dementia. Lipase and LFTs wnl. -start on diabetic diet with Glucerna shakes tid -continue patient's zantac -consult collection support specialist -consider initiating megace for appetite stimulation Hypotension: BP 93/56, suspect secondary to dehydration -hold patient's cardizem -give IVF -monitor BP Elevated TSH: mildly elevated at 4.390. - T4 mildly elevated, normal free T3. Dementia: with possible acute worsening recently. -continue patient's aricept, namenda Diabetes Mellitus: chronic -hold patient's glipizide for now -monitor Accu-checks and cover with SSI Hyperlipidemia: chronic, stable -continue patient's statin DVT Prophylaxis: Heparin sq Discussed with Palliative care. Patient's son want her to go to SNF for a short term. However, he will keep an open mind regarding hospice. Problem Qualifiers (1) Nausea and vomiting: Qualified Codes: R11.2 - Nausea with vomiting, unspecified Leigh Warren DO Apr 06, 2017 12:11
--- NOTE | 2017-04-06 13:26 | PD.CONS ---
Consult Service Palliative Care Consult Requested By Dr. Warren Primary Care Physician Non-Staff Reason for Consultation a. To assist with evaluation and management of symptoms including: Debility and poor appetite. b. To assist medical decision maker(s) with: better understanding of current medical conditions; weighing benefits/burdens of medical treatment options; making medical treatment decisions. . HPI History of Present Illness Mrs. Clemente is an 86-year-old female to medical history significant for dementia , arthritis, hypertension, diabetes mellitus type 2, hyperlipidemia who is a resident of an assisted living facility. Patient presented to ED on 04/05/17 reports of weakness for the prior 10 days, nausea/vomiting and poor appetite. Upon ED arrival, patient was found hypotensive with BP 93/56, she was given IV fluids. ED workup to include chest x-ray revealing no acute process. Laboratory workup revealing WBC 8.9, Hgb 12.0, platelet count 146. Sodium 136, potassium 4.5, BUN/creatinine 20/1.27. Random glucose 182. UA negative for nitrates, trace of leukocytes. Patient with 2 prior ED visits this month, most recent 03/22 to 03/23 secondary to nausea/vomiting and weakness. Patient diagnosed with gastroenteritis, elevated troponins. Symptoms were suspected secondary to metformin, she was switched to glipizide. However, nausea and vomiting has persisted. Palliative care was consulted at the request of patient 's son for goals of care clarification. Patient seen in the emergency room, remains under observation. She is awake, alert and oriented x self, place and situation. Intermittent forgetfulness, however, easily reoriented. Patient answering questions appropriately, was able to tell me her past medical history, psychosocial history and participated in goals of care conversation. Patient endorsing generalized weakness, worsened for the past 4 weeks. She reports that she is mainly independent with ADLs, however, has been requiring more assistance with bathing and dressing secondary to high risk for falls. Patient denies any pain, shortness of breath , nausea/vomiting or abdominal discomfort. Sipping Glucerna at the time of my visit. Patient remains afebrile, stable hemodynamically. Tolerating room air with oxygen saturation in the mid 90s. Laboratory workup today revealing WBC 6.3, Hgb 11.0, platelet count 113. Renal function improvement after IV fluids, BUN/creatinine 15/1.00. Goals of care conversation with patient, son Chao via telephone. Reviewed patient's past medical history, psychosocial history, and events leading to this hospitalization, clinical course. Patient and son reports that patient has been progressively weaker for the past few weeks, worsening over the past 4 weeks. Decreased appetite, oral intake. Patient spending most of her day in her bed, declining getting out of bed. Reviewed likely disease trajectory of dementia given progressive symptoms. Review concerns of patient' s independent living at [facility] as she appears to require higher level of care. [place] [facility] has already put them at notice that patient may require long-term placement/SNF. Son considering long-term placement facility near [facility] to be closer to her. Review risks, benefits and limitations of CPR, intubation and mechanical ventilation. Patient electing no code. DNR/DNI. Son supported of this. Hospice philosophy and benefits introduced, patient and son receptive should patient's clinical condition continues to worsen. Case discussed with Dr. Warren and bedside RN. . Function/Cognitive Trajectory Patient is a resident of [facility]. Ambulating with a roller walker. Patient and son reports that patient has been progressively weaker for the past few weeks, worsening over the past 4 weeks. Decreased appetite, oral intake. Patient spending most of her day in her bed, declining getting out of bed. Patient mostly independent with ADLs, requires assistance with bathing and dressing. Baseline mild dementia. Intermittent periods of confusion/forgetfulness, easily reoriented. . Review of Systems Constitutional: COMPLAINS OF: Fatigue, Change in appetite, Generalized weakness , DENIES: Fever, Weight gain, Dizziness, Pain Eyes: DENIES: Eye inflammation, Eye pain Ears, nose, mouth, throat: DENIES: Hearing loss, Nasal discharge, Hoarseness, Running Nose, Epistaxis Respiratory: DENIES: Apneas, Cough, Sputum production, Shortness of breath Cardiovascular: DENIES: Chest pain, Dyspnea on Exertion, Lower Extremity Edema Gastrointestinal: COMPLAINS OF: Nausea, Vomiting, Anorexia, DENIES: Abdominal pain, Difficulty Swallowing Genitourinary: COMPLAINS OF: Urinary incontinence Musculoskeletal: DENIES: Joint pain, Decreased range of motion Integumentary: DENIES: Rash Hematologic/Lymphatics: DENIES: Bruising Immunologic/Allergic: DENIES: Eczema Neurologic: COMPLAINS OF: Abnormal gait, Poor Balance, DENIES: Seizures, Speech Problems, Tremor Psychiatric: COMPLAINS OF: Confusion, Depression, DENIES: Anxiety, Mood changes , Hallucinations, Agitation Past Family Social History Coded Allergies: Influenza Virus Vaccines (Unverified Allergy, Severe, 04/05/17) ciprofloxacin (Unverified Allergy, Severe, 04/05/17) lisinopril (Verified Allergy, Severe, Edema, 04/05/17) losartan (Unverified Allergy, Severe, 04/05/17) Past Medical History Dementia Diabetes mellitus type II Arthritis Hypertension Hyperlipidemia . Past Surgical History Ankle surgery Shoulder surgery D&C Abdominal surgery . Reported Medications Glipizide ER (Glipizide) 2.5 Mg Tiarra 2.5 Mg PO DAILY Take with breakfast or first main meal of the day Cyanocobalamin Inj (Cyanocobalamin) 1,000 Mcg/Ml Inj 1,000 Mcg IM MONTHLY Tylenol (Acetaminophen) 325 Mg Tab 650 Mg PO Q4H PRN Mirtazapine 7.5 Mg Tab 7.5 Mg PO HS Ferrous Sulfate 325 Mg (65 Mg Iron) Tablet 325 Mg PO DAILY Vitamin D3 (Cholecalciferol) 2,000 Unit Cap 2,000 Units PO DAILY Epinephrine Inj (Epinephrine HCl) 1 Mg/Ml Inj 0.3 Mg SQ ONCE PRN Give with any signs of respiratory distress. Simvastatin 10 Mg Tab 10 Mg PO DAILY Ranitidine (Ranitidine HCl) 150 Mg Tab 150 Mg PO DAILY Namenda Xr (Memantine) 28 Mg Caper 28 Mg PO DAILY Donepezil 5 Mg Tab 5 Mg PO HS Diphenhydramine (Diphenhydramine HCl) 25 Mg Cap 25 Mg PO HS PRN Diltiazem CD 24 HR 120 Mg Caper 120 Mg PO DAILY Calcium 600 with Vitamin D (Calcium Carbonate-Cholecalciferol) 600-400 mg-Unit Tab 1 Tab PO BID Aspirin Low Dose (Aspirin) 81 Mg Chew 81 Mg CHEW DAILY . Current Medications Medications (Trade) Dose Ordered Sig/Goran Route Start Time Stop Time Status Last Admin Sodium Chloride 1,000 ml @ 125 mls/hr Q8H IV 04/05/17 17:00 04/06/17 03:54 (NS Flush) 2 ml UNSCH PRN IV FLUSH 04/05/17 16:15 (NS Flush) 2 ml BID IV FLUSH 04/05/17 21:00 (Tylenol) 650 mg Q4H PRN PO 04/05/17 16:15 (Zofran Inj) 4 mg Q6H PRN IVP 04/05/17 16:15 (Heparin Inj) 5,000 units Q12H SQ 04/05/17 17:00 04/06/17 05:56 (Narcan Inj) 0.4 mg UNSCH PRN IV PUSH 04/05/17 16:15 (Milk Of Magnesia Liq) 30 ml Q12H PRN PO 04/05/17 16:15 (Senokot) 17.2 mg Q12H PRN PO 04/05/17 16:15 (Dulcolax Supp) 10 mg DAILY PRN RECTAL 04/05/17 16:15 (Lactulose Liq) 30 ml DAILY PRN PO 04/05/17 16:15 (Aspirin Chew) 81 mg DAILY CHEW 04/06/17 09:00 04/06/17 09:34 (Vitamin D3) 2,000 units DAILY PO 04/06/17 09:00 04/06/17 09:35 (Aricept) 5 mg HS PO 04/05/17 21:00 04/05/17 20:52 (Ferrous Sulfate) 325 mg DAILY PO 04/06/17 09:00 04/06/17 09:35 (Remeron) 7.5 mg HS PO 04/05/17 21:00 04/05/17 20:52 Patient Own Medication PT OWN MED: Memant... DAILY PO 04/06/17 09:00 Future Hold (Pepcid) 20 mg DAILY PO 04/06/17 09:00 04/06/17 09:34 (Pravachol) 20 mg DAILY PO 04/06/17 09:00 04/06/17 09:35 (D50w (Vial) Inj) 50 ml UNSCH PRN IV PUSH 04/05/17 18:15 (Glucagon Inj) 1 mg UNSCH PRN OTHER 04/05/17 18:15 (NovoLOG SUPPLEMENTAL SCALE) 1 ACHS SLIDING SCALE SQ 04/05/17 21:00 04/05/17 20:53 Family History Positive for diabetes. Patient has 3 children who are alive and well. . Substance Use Tobacco: None. Alcohol: Denies. Prescription med abuse: Denies. Illicits: Denies. . Psychosocial History Patient originally from [facility]. Moved to [place] in 1973. 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 Patient is a , her in the 1970s. Patient has 3 children: Son Chao her bursitis in [place], daughter Siobhan Walker who lives in [place] and son Luis Fernando who lives in [place]. No service. . Spiritual/Cultural Factors No quaker affiliations. . Living Will: Completed, but not made available Health Care Surrogate: Completed, but not made available Durable Power of Occupational Therapist Home Based: Completed, but not made available Health Care Surrogate(s): Patient report that living will/designation of healthcare surrogate has been completed naming her son Chao Clemente as healthcare surrogate decision maker. Pending copy. . Today's verbally stated goals: No code. DNR/DNI. Patient/family electing to continue current medical management short of no code. Considering short-term rehabilitation at SNF. . Family/friends goals: Patient's son supportive of patient's wishes. . Ethical and Legal Issues No ethical legal issues identified. . Physical Exam Vital Signs Date Time Temp Pulse Resp B/P (MAP) Pulse Ox O2 Delivery O2 Flow Rate FiO2 04/06/17 06:05 21 04/06/17 03:35 97.9 81 18 135/59 (84) 95 04/05/17 23:25 97.9 71 18 144/65 (91) 95 04/05/17 21:09 74 136/60 (85) 95 04/05/17 20:11 97.9 79 18 97/50 (66) 95 04/05/17 19:12 82 17 115/55 (75) 96 Room Air 04/05/17 18:00 86 18 118/57 (77) 95 Room Air 04/05/17 15:24 16 94 Room Air 04/05/17 15:00 88 18 105/56 (72) 95 Room Air 04/05/17 13:00 87 16 93/56 (68) 94 Room Air 04/05/17 12:46 97.5 100 26 96 Room Air Exam CONSTITUTIONAL/GENERAL: This is a thin elderly female resting in bed in no acute distress. TUBES/LINES/DRAINS: PIV's. SKIN: Pale. No jaundice, rashes, or lesions. No wounds seen anteriorly. Skin temperature appropriate. Not diaphoretic. HEAD: Atraumatic. Normocephalic. EYES: Pupils equal and round and reactive. Extraocular motions intact. No scleral icterus. No injection or drainage. ENT: Hearing grossly normal. Nose without bleeding or purulent drainage. Moist oral mucosa. NECK: Trachea midline. Supple, nontender. CARDIOVASCULAR: Regular rate and rhythm. Systolic murmur. No JVD. Peripheral pulses symmetric. RESPIRATORY/CHEST: Symmetric, unlabored respirations. Clear, diminished to auscultation. Breath sounds equal bilaterally. No wheezes, rales, or rhonchi. GASTROINTESTINAL: Abdomen soft, non-tender, nondistended. No guarding. Bowel sounds present. GENITOURINARY: Without palpable bladder distension. MUSCULOSKELETAL: Extremities without clubbing, cyanosis, or edema. No calf tenderness. No mottling or clubbing. Muscular atrophy in all 4 extremities. NEUROLOGICAL: Awake and alert. Motor and sensory grossly within normal limits. Follows commands. Intermittent confusion/forgetfulness, easily reoriented. Moves all extremities. PSYCHIATRIC: No obvious anxiety/depression. no apparent hallucinations or other psychotic thought process. Patient is pleasant and cooperative. . Diagnostic Tests Laboratory Laboratory Tests Test 04/05/17 14:40 04/05/17 14:49 04/05/17 16:48 04/06/17 05:17 White Blood Count 8.9 TH/MM3 (4.0-11.0) 6.3 TH/MM3 (4.0-11.0) Red Blood Count 3.97 MIL/MM3 (4.00-5.30) 3.64 MIL/MM3 (4.00-5.30) Hemoglobin 12.0 GM/DL (11.6-15.3) 11.0 GM/DL (11.6-15.3) Hematocrit 35.3 % (35.0-46.0) 33.0 % (35.0-46.0) Mean Corpuscular Volume 88.9 FL (80.0-100.0) 90.7 FL (80.0-100.0) Mean Corpuscular Hemoglobin 30.3 PG (27.0-34.0) 30.2 PG (27.0-34.0) Mean Corpuscular Hemoglobin Concent 34.0 % (32.0-36.0) 33.2 % (32.0-36.0) Red Cell Distribution Width 14.1 % (11.6-17.2) 14.6 % (11.6-17.2) Platelet Count 146 TH/MM3 (150-450) 113 TH/MM3 (150-450) Mean Platelet Volume 8.8 FL (7.0-11.0) 9.0 FL (7.0-11.0) Neutrophils (%) (Auto) 78.9 % (16.0-70.0) 56.0 % (16.0-70.0) Lymphocytes (%) (Auto) 13.9 % (9.0-44.0) 30.6 % (9.0-44.0) Monocytes (%) (Auto) 6.2 % (0.0-8.0) 8.5 % (0.0-8.0) Eosinophils (%) (Auto) 0.8 % (0.0-4.0) 4.6 % (0.0-4.0) Basophils (%) (Auto) 0.2 % (0.0-2.0) 0.3 % (0.0-2.0) Neutrophils # (Auto) 7.0 TH/MM3 (1.8-7.7) 3.5 TH/MM3 (1.8-7.7) Lymphocytes # (Auto) 1.2 TH/MM3 (1.0-4.8) 1.9 TH/MM3 (1.0-4.8) Monocytes # (Auto) 0.6 TH/MM3 (0-0.9) 0.5 TH/MM3 (0-0.9) Eosinophils # (Auto) 0.1 TH/MM3 (0-0.4) 0.3 TH/MM3 (0-0.4) Basophils # (Auto) 0.0 TH/MM3 (0-0.2) 0.0 TH/MM3 (0-0.2) CBC Comment DIFF FINAL DIFF FINAL Differential Comment Blood Urea Nitrogen 20 MG/DL (7-18) 15 MG/DL (7-18) Creatinine 1.27 MG/DL (0.50-1.00) 1.00 MG/DL (0.50-1.00) Random Glucose 182 MG/DL (74-106) 100 MG/DL (74-106) Total Protein 6.6 GM/DL (6.4-8.2) Albumin 3.2 GM/DL (3.4-5.0) Calcium Level 9.6 MG/DL (8.5-10.1) 8.6 MG/DL (8.5-10.1) Alkaline Phosphatase 60 U/L (45-117) Aspartate Amino Transf (AST/SGOT) 16 U/L (15-37) Alanine Aminotransferase (ALT/SGPT) 15 U/L (10-53) Total Bilirubin 0.5 MG/DL (0.2-1.0) Sodium Level 136 MEQ/L (136-145) 140 MEQ/L (136-145) Potassium Level 4.5 MEQ/L (3.5-5.1) 4.3 MEQ/L (3.5-5.1) Chloride Level 103 MEQ/L (98-107) 109 MEQ/L (98-107) Carbon Dioxide Level 24.7 MEQ/L (21.0-32.0) 22.8 MEQ/L (21.0-32.0) Anion Gap 8 MEQ/L (5-15) 8 MEQ/L (5-15) Estimat Glomerular Filtration Rate 40 ML/MIN (>89) 52 ML/MIN (>89) Lipase 205 U/L (73-393) Free Thyroxine 1.54 NG/DL (0.76-1.46) Free Triiodothyronine (T3) pg/dL 3.14 PG/ML (2.18-3.98) Thyroid Stimulating Hormone 3rd Gen 4.390 uIU/ML (0.358-3.740) Urine Color YELLOW (YELLW/STRAW) Urine Turbidity HAZY (CLEAR) Urine pH 7.0 (5.0-8.5) Urine Specific [place] 1.016 (1.002-1.035) Urine Protein NEG mg/dL (NEG-TRACE) Urine Glucose (UA) NEG mg/dL (NEG) Urine Ketones 10 mg/dL (NEG) Urine Occult Blood NEG (NEG) Urine Nitrite NEG (NEG) Urine Bilirubin NEG (NEG) Urine Urobilinogen 4.0 MG/DL (LESS THAN Urine Leukocyte Esterase TRACE (NEG) Urine RBC LESS THAN 1 /hpf (0-3) Urine WBC 5 /hpf (0-5) Urine Squamous Epithelial Cells <1 /hpf (0-5) Urine Amorphous Sediment RARE Urine Bacteria RARE /hpf (NONE) Microscopic Urinalysis Comment CULT NOT INDICATED Lactic Acid Level 1.1 mmol/L (0.4-2.0) Result Diagram: 04/06/17 0517 04/06/17 0517 Imaging Last Impressions Chest X-Ray 04/05/17 0000 Signed Impressions: Service Date/Time: Wednesday, April 05, 2017 13:39 - CONCLUSION: 1. No acute abnormality or significant interval change. Cameron Ponce MD Patient/Family Conference Present at Family Conference: Patient and son Chao Clemente via telephone. Family Conference Time (mins): 46 Family Conference Location: Bedside, Telephone Issues Discussed: * Palliative care role, purpose, approach * Additional medical, psychosocial, and spiritual history * Patients general health, functional status, and cognitive changes in the months leading up to the current hospitalization * Patient/family understanding of the current medical problems -baseline dementia, progressive generalized weakness, physical deconditioning. * Patient/family understanding of prognosis * Patients goals of care as best understood from advance directives and/or conversations and/or values * Current medical treatment options and benefits/burdens of those options * Questions answered to the best of my ability * Palliative care contact information provided * Hospice philosophy and benefits * Risks, benefits and limitations of CPR, intubation and mechanical ventilation * [facility] DNR order . Assessment and Plan Disease Oriented Problem List: (1) Renal insufficiency (2) Generalized weakness (3) DM (diabetes mellitus) (4) Dementia Symptom Scale: (1) Debility 0-10 Scale: Unable to quantify Comment: Progressive. (2) Nausea and vomiting 0-10 Scale: 0 Pertinent Non-Medical Issues Psychosocial: Patient originally from [facility]. Moved to [place] in 1973. 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 Patient is a , her in the . Patient has 3 children: Son Chao her bursitis in [place], daughter Siobhan Walker who lives in [place] and son Luis Fernando who lives in [place]. No service. Spiritual: No quaker affiliations. Legal: Patient reports that living will has been completed. Pending copy. Ethical issues impacting care: No ethical issues identified. . Important Contacts Son/HCS Chao Clemente and . . Prognosis Mrs. Clemente is an 86-year-old female to medical history significant for dementia , arthritis, hypertension, diabetes mellitus type 2, hyperlipidemia who is a resident of an assisted living facility. Patient presented to ED on 04/05/17 reports of weakness for the prior 10 days, nausea/vomiting and poor appetite. Patient for hypertension, acute kidney injury, generalized weakness and was placed under observation. Patient with progressive physical decline to include worsening generalized weakness, poor activity tolerance, poor appetite and poor oral intake. Patient at risk for complications, continue decline and given comorbidities, progressive decline and advanced age. . Code Status: No Code Plan * CODE STATUS: Pt electing DNR/DNI. This is supported by patient's son Chao. Community DNR signed and placed in chart. * HEALTH CARE [id number]: Patient participating in medical decision- making. Baseline mild dementia, intermittent confusion which wax and wane. During this visit, patient appears to have a good understanding of her disease process and the ability to weigh benefits vs burdens of treatment options. Patient reports that living will/designation of healthcare surrogate previously completed naming her son Chao Clemente as healthcare surrogate decision maker. Palliative care recommends shared decision-making given baseline dementia. * GOALS OF CARE: Patient electing to continue current conservative management short of NO code. Hopes for short-term rehabilitation and return to [facility] for independent living. However, understands that independent living may no longer be an option given her higher level of needs. Patient's son reporting that they are looking into long-term placement near the [facility] where son lives. Hospice philosophy and benefits introduce given patient's progressive decline. Patient and son receptive to hospice should her clinical condition continues to worsen or patient elects comfort-directed care. * SYMPTOMS: = Poor appetite and oral intake: Patient endorsing poor appetite for the past few weeks. [facility] has been consulted, considering initiating appetite stimulant. = Debility: Progressive, worsening over the past 4 weeks. PT following, recommending rehabilitation. =Nausea/vomiting: Resolved at this time. * Case discussed with Dr. Warren and bedside RN. * Palliative care contact information has been provided to patient and son. * Palliative care will continue to follow-up for further clarifications of goals of care as patient's clinical course continues to evolve. . Time Spent Total Floor Time (mins): 62 (Total time to include review and summarization of available medical records to include multiple prior ED visits and acute hospitalizations, physical exam, goals of care conversation with patient, telephone conversation with patient's son Chao, assistance with completion of community DNR, case discussion with Dr. Warren and bedside RN.) >50% Counseling/Coord of Care: Yes Thank you for the opportunity to participate in the care of Ms. Clemente. Attestation To help prompt me to consider important information that might be impacting today's encounter and assessment, information from prior notes written by myself or my colleagues may have been "brought forward" into today's note. My signature on this note, however, is an attestation that I personally performed the exam, history, and/or decision-making noted today, and, unless otherwise indicated, the interactions with patient, family, and staff as well as the review of records all occurred today. I also attest that the listed assessment and stated plan reflect my best clinical judgment today based on the combination of historical information, prior notes, and today's exam/ interactions. When time spent is documented, it refers only to time spent today by the signer, or if indicated, combined time spent today by collaborating physician/nurse practitioner. Theresa Plummer Apr 06, 2017 13:26
[2017-04-06 13:57] VITALS: BP 113/68; PULSE 95; RESP 19; TEMP 98.2; O2SAT 95
--- NOTE | 2017-04-06 18:19 | EKG ---
Date Performed: 04/05/2017 Time Performed: 15:31:25 PTAGE: 86 years EKG: Sinus rhythm WITH FIRST DEGREE AV BLOCK MARKED LEFT AXIS DEVIATION MODERATE VOLTAGE CRITERIA FOR LVH, CONSIDER NO RMAL VARIANT ABNORMAL ECG Compared to prior tracing no significant change PREVIOUS TRACING : 03/22/2017 10.49 DOCTOR: Amena Taylor Interpretating Date/Time 04/06/2017 18:18:12
[2017-04-06 19:44] VITALS: BP 128/67; PULSE 94; RESP 18; TEMP 98; O2SAT 95
[2017-04-06] MEDS: MIRTAZAPINE 15 MG TAB PO SCH ×2 (20:03)
[2017-04-06] MEDS: DONEPEZIL HCL 5 MG TAB PO SCH ×2 (20:03)
[2017-04-06 20:32] VITALS: O2SAT 95
[2017-04-07] VITALS (7 sets, daily range): BP systolic 111–180; BP diastolic 58–74; PULSE 69–100; RESP 16–22; TEMP 97.5–98.2; O2SAT 93–97
[2017-04-07] MEDS: HEPARIN SODIUM - SQ 10,000 UNITS/ML VIAL SQ SCH ×4 (04:27→16:58)
[2017-04-07] MEDS: SODIUM CHLOR 0.9% 1000 ML INJ 1,000 ML IV SCH ×4 (04:27→13:41)
[2017-04-07] MEDS ORDERED: WALKER WHEELS/F1 MIS ×2 (07:43)
[2017-04-07] MEDS: INSULIN ASPART SUPPLEMENTAL SCALE SQ SCH ×8 (08:00→21:19)
[2017-04-07] MEDS ORDERED: GLIMEPIRIDE 1 MG TAB PO SCH ×2 (08:45)
[2017-04-07] MEDS: CHOLECALCIFEROL (VIT D3) 1000 UNIT TAB PO SCH ×2 (09:31)
[2017-04-07] MEDS: FAMOTIDINE 20 MG TAB PO SCH ×2 (09:32)
[2017-04-07] MEDS: FERROUS SULFATE 325 MG (65 MG ELEMENTAL IRON) TAB PO SCH ×2 (09:32)
[2017-04-07] MEDS: PRAVASTATIN SOD 20 MG TAB PO SCH ×2 (09:32)
[2017-04-07] MEDS: ASPIRIN 81 MG CHEW TAB CHEW SCH ×2 (09:33)
[2017-04-07] MEDS: SODIUM CHLORIDE 0.9% FLUSH 10 ML FLUSH IV FLUSH SCH ×4 (09:34→21:00)
[2017-04-07] MEDS ORDERED: POLYETHYLENE GLYCOL 17 GM PKG PO ONE ×2 (10:00)
[2017-04-07] MEDS ORDERED: DOCUSATE SODIUM 50 MG/SENNA 8.6 MG TAB PO ONE ×2 (10:00)
--- NOTE | 2017-04-07 10:29 | HHI.PR ---
Subjective Remarks Follow up on patient with dementia, generalized weakness and SUMA. Patient seen and examined. She has complaints of constipation. She is unable to recall her last BM. Denies any nausea or vomiting. Denies any abdominal pain. Denies any fever or chills. Denies any chest pain or dyspnea. She denies any appetite. She states she is waiting for her father to get home from work. Discussed with nursing staff - patient drinking Glucerna shakes but only picking at meal. Objective Vitals Vital Signs Date Time Temp Pulse Resp B/P (MAP) Pulse Ox O2 Delivery O2 Flow Rate FiO2 04/07/17 08:05 97.5 82 16 156/68 (97) 93 04/07/17 03:32 98.2 82 17 156/66 (96) 95 04/07/17 00:38 98.2 93 19 118/68 (85) 95 04/06/17 20:32 95 21 04/06/17 19:44 98.0 94 18 128/67 (87) 95 04/06/17 13:57 98.2 95 19 113/68 (83) 95 I/O 04/06/17 04/06/17 04/06/17 04/07/17 04/07/17 04/07/17 07:00 15:00 23:00 07:00 15:00 23:00 Intake Total 1000 ml Balance 1000 ml Intake IV Total 1000 ml Result Diagram: 04/06/1751604/06/17 05 Imaging Last Impressions Chest X-Ray 04/05/17 0000 Signed Impressions: Service Date/Time: Wednesday, April 05, 2017 13:39 - CONCLUSION: 1. No acute abnormality or significant interval change. Cameron Ponce MD Objective Remarks GENERAL: WDWN elderly female. INAD. Awake and alert. Confused, oriented to self only. SKIN: Warm and dry. No rash. HEAD: Normocephalic. Atraumatic. EYES: EOMI. No scleral icterus. No injection or drainage. ENT: No nasal bleeding or discharge. Mucous membranes pink and moist. NECK: Supple. Trachea midline. CARDIOVASCULAR: Regular rate and rhythm. 2/6 systolic murmur appreciated. RESPIRATORY: No accessory muscle use. Clear to auscultation. Breath sounds equal bilaterally. GASTROINTESTINAL: Abdomen soft, nondistended. (+)mild left sided tenderness over lower quadrant. Hypoactive BS. MUSCULOSKELETAL: No obvious deformities. Extremities without clubbing, cyanosis , or edema. NEUROLOGICAL: Awake and alert. Able to move all extremities. Nonfocal. Normal speech. PSYCHIATRIC: Confused. Oriented to self only. Medications and IVs Current Medications Medications (Trade) Dose Ordered Sig/Goran Route Start Time Stop Time Status Last Admin Sodium Chloride 1,000 ml @ 125 mls/hr Q8H IV 04/05/17 17:00 04/07/17 04:27 (NS Flush) 2 ml UNSCH PRN IV FLUSH 04/05/17 16:15 (NS Flush) 2 ml BID IV FLUSH 04/05/17 21:00 04/07/17 09:34 (Tylenol) 650 mg Q4H PRN PO 04/05/17 16:15 (Zofran Inj) 4 mg Q6H PRN IVP 04/05/17 16:15 (Heparin Inj) 5,000 units Q12H SQ 04/05/17 17:00 04/07/17 04:27 (Narcan Inj) 0.4 mg UNSCH PRN IV PUSH 04/05/17 16:15 (Milk Of Magnesia Liq) 30 ml Q12H PRN PO 04/05/17 16:15 (Senokot) 17.2 mg Q12H PRN PO 04/05/17 16:15 (Dulcolax Supp) 10 mg DAILY PRN RECTAL 04/05/17 16:15 (Lactulose Liq) 30 ml DAILY PRN PO 04/05/17 16:15 (Aspirin Chew) 81 mg DAILY CHEW 04/06/17 09:00 04/07/17 09:33 (Vitamin D3) 2,000 units DAILY PO 04/06/17 09:00 04/07/17 09:31 (Aricept) 5 mg HS PO 04/05/17 21:00 04/06/17 20:03 (Ferrous Sulfate) 325 mg DAILY PO 04/06/17 09:00 04/07/17 09:32 (Remeron) 7.5 mg HS PO 04/05/17 21:00 04/06/17 20:03 Patient Own Medication PT OWN MED: Memant... DAILY PO 04/06/17 09:00 Future Hold (Pepcid) 20 mg DAILY PO 04/06/17 09:00 04/07/17 09:32 (Pravachol) 20 mg DAILY PO 04/06/17 09:00 04/07/17 09:32 (D50w (Vial) Inj) 50 ml UNSCH PRN IV PUSH 04/05/17 18:15 (Glucagon Inj) 1 mg UNSCH PRN OTHER 04/05/17 18:15 (NovoLOG SUPPLEMENTAL SCALE) 1 ACHS SLIDING SCALE SQ 04/05/17 21:00 04/06/17 20:41 (Amaryl) 1 mg DAILYAC PO 04/07/17 08:45 04/07/17 09:33 A/P Problem List: (1) Generalized weakness ICD Code: R53.1 - Weakness Status: Acute (2) Nausea and vomiting ICD Code: R11.2 - Nausea with vomiting, unspecified Status: Acute (3) Renal insufficiency ICD Code: N28.9 - Disorder of kidney and ureter, unspecified Assessment and Plan 86-year-old female with history of dementia, diabetes, arthritis, hyperlipidemia , presents with a 10 day history of generalized weakness, decreased appetite, and a 2-3 day history of nausea/vomiting. Generalized Weakness: suspect multifactorial secondary to dehydration, nausea/ vomiting, recent hospitalization, and possible worsening dementia. UA negative for UTI. CXR images reviewed and unremarkable. BMP positive for SUMA. Lactic acid 1.1. TSH slightly elevated at 4.390. -treated with IVF. Continue IVF hydration at 75cc/hr -Continue participation with PT. -Palliative care following, appreciate assistance. SUMA: secondary to dehydration from recent poor oral intake and nausea/vomiting. Cr 1.27, previously Cr 0.88 on 03/23/17. -treated with IVF hydration with NS at 125cc/hr -Avoid nephrotoxins -Resolved Poor Appetite/Nausea/Vomiting: unclear etiology, possibly gastroenteritis vs secondary to worsening dementia. Lipase and LFTs wnl. 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 BP 156/68 -resume patient's cardizem -monitor BP Possible Hypothyroidism Elevated TSH: mildly elevated at 4.390. -Free T4 1.54, Free T3 -Recommend follow up with PCP in 6-8 weeks and repeat thyroid function tests Dementia: with possible acute worsening recently. -continue patient's aricept, namenda Diabetes Mellitus: chronic -BS 250. Started on Glimepiride. BS now 105. Hold po diabetic med for now. -discontinue patient's glipizide -monitor Accu-checks and cover with SSI Hyperlipidemia: chronic, stable -continue patient's statin Constipation -Kimmie Colace BID -Miralax now -Monitor for BM DVT Prophylaxis: Heparin sq Discussed with patient, nursing staff and Dr. Warren Problem Qualifiers (1) Nausea and vomiting: Qualified Codes: R11.2 - Nausea with vomiting, unspecified Suzanne Swenson Apr 07, 2017 10:29
[2017-04-07] MEDS: DILTIAZEM-CD 120 MG CAP ER PO SCH ×2 (11:18)
[2017-04-07] MEDS ORDERED: MEGE40SU PO ×2 (13:09)
--- NOTE | 2017-04-07 13:18 | HHI.FF ---
Face to Face Verification Diagnosis: (1) Intractable nausea and vomiting (2) DM (diabetes mellitus) (3) Dementia (4) Poor appetite (5) Generalized weakness (6) Nausea and vomiting (7) Debility (8) Hypertension (9) Hypotension (10) Acute kidney injury Physical Therapy Order: Evaluate and Treat, Improve ambulation, Strength and gait training I have seen patient Munira Clemente on 04/07/17. My clinical findings support the need for the requested home health care services because: Deconditioned w/ increased weakness Limited ability to care for self Impaired cognition/judgement High risk of falls I certify that my clinical findings support that this patient is homebound because: Impaired cognitive ability/safety Unsteady gait/balance Unsafe to leave home unassisted Unable to use public transportation Suzanne Swenson Apr 07, 2017 13:18
[2017-04-07] MEDS ORDERED: THERTAB17 PO ×2 (13:19)
[2017-04-07] MEDS ORDERED: MEGESTROL ACETATE SUSP 400 MG/10 ML CUP PO ONE ×2 (14:00)
--- NOTE | 2017-04-07 15:28 | HHI.FF ---
Face to Face Verification Diagnosis: (1) DM (diabetes mellitus) (2) Dementia (3) Poor appetite (4) Generalized weakness (5) Nausea and vomiting (6) Debility (7) Hypertension (8) Hypotension (9) Acute kidney injury Physical Therapy Order: Evaluate and Treat, Improve ambulation, Strength and gait training Occupational Therapy Order: Evaluate and Treat, Improve ADL, Gross motor coordination, Fine motor coordination Home Health Nursing Order: Medical education Signs/symptoms of disease process Nursing assessment with vital signs I have seen patient Munira Clemente on 04/07/17. My clinical findings support the need for the requested home health care services because: Ltd mobility - disease progression Deconditioned w/ increased weakness Limited ability to care for self Impaired cognition/judgement High risk of falls I certify that my clinical findings support that this patient is homebound because: Impaired cognitive ability/safety Unsteady gait/balance Unsafe to leave home unassisted Unable to use public transportation Suzanne Swenson Apr 07, 2017 15:28
[2017-04-07] MEDS ORDERED: MULTIVITAMINS/MINERALS THERAPEUTIC TAB PO ONE ×2 (16:00)
[2017-04-07] MEDS: DOCUSATE SODIUM 50 MG/SENNA 8.6 MG TAB PO SCH ×2 (20:58)
[2017-04-07] MEDS: MIRTAZAPINE 15 MG TAB PO SCH ×2 (20:58)
[2017-04-07] MEDS: DONEPEZIL HCL 5 MG TAB PO SCH ×2 (20:58)
[2017-04-08 03:56] VITALS: BP 137/60; PULSE 66; RESP 18; TEMP 97.6; O2SAT 96
[2017-04-08] MEDS: HEPARIN SODIUM - SQ 10,000 UNITS/ML VIAL SQ SCH ×2 (05:53)
[2017-04-08 06:57] LABS: AUTOMATED NEUTROPHIL # 2.4 TH/MM3 (1.8-7.7); BASOPHIL % 0.3 % (0.0-2.0); EOSINOPHIL # 0.2 TH/MM3 (0-0.4); EOSINOPHIL % 5.2 % (0.0-4.0); HEMATOCRIT 27.5 % (35.0-46.0); HEMOGLOBIN 9.3 GM/DL (11.6-15.3); LYMPH % 35.3 % (9.0-44.0); LYMPHOCYTE # 1.7 TH/MM3 (1.0-4.8); MEAN CELL VOLUME 88.9 FL (80.0-100.0); MEAN CORPUSCULAR HGB CONC 33.8 % (32.0-36.0); MONO % 9.5 % (0.0-8.0); MONOCYTE # 0.5 TH/MM3 (0-0.9); NEUT % 49.7 % (16.0-70.0); PLATELET COUNT 110 TH/MM3 (150-450); RED CELL DISTRIBUTION WIDTH 14.2 % (11.6-17.2); WHITE BLOOD COUNT 4.7 TH/MM3 (4.0-11.0)
[2017-04-08 07:41] VITALS: BP 142/65; PULSE 66; RESP 16; TEMP 97.7; O2SAT 100
[2017-04-08] MEDS: INSULIN ASPART SUPPLEMENTAL SCALE SQ SCH ×4 (08:00→12:14)
[2017-04-08] MEDS: ASPIRIN 81 MG CHEW TAB CHEW SCH ×2 (08:13)
[2017-04-08] MEDS: DOCUSATE SODIUM 50 MG/SENNA 8.6 MG TAB PO SCH ×2 (08:13)
[2017-04-08] MEDS: FAMOTIDINE 20 MG TAB PO SCH ×2 (08:13)
[2017-04-08] MEDS: DILTIAZEM-CD 120 MG CAP ER PO SCH ×2 (08:14)
[2017-04-08] MEDS: PRAVASTATIN SOD 20 MG TAB PO SCH ×2 (08:15)
[2017-04-08] MEDS: FERROUS SULFATE 325 MG (65 MG ELEMENTAL IRON) TAB PO SCH ×2 (08:15)
[2017-04-08] MEDS: CHOLECALCIFEROL (VIT D3) 1000 UNIT TAB PO SCH ×2 (08:16)
[2017-04-08] MEDS: SODIUM CHLORIDE 0.9% FLUSH 10 ML FLUSH IV FLUSH SCH ×2 (08:17)
[2017-04-08] MEDS ORDERED: MEGESTROL ACETATE SUSP 400 MG/10 ML CUP PO SCH ×2 (09:00)
[2017-04-08] MEDS ORDERED: PANTOPRAZOLE SOD 40 MG DELAYED RELEASE TAB PO SCH ×2 (09:00)
[2017-04-08] MEDS ORDERED: MULTIVITAMINS/MINERALS THERAPEUTIC TAB PO SCH ×2 (09:00)
--- NOTE | 2017-04-08 10:44 | HHI.PR ---
Subjective Remarks Follow up on patient with dementia, generalized weakness and SUMA. Patient seen and examined. Patient much more alert this morning. States she feels very well. She states she feels like she needs to have a bowel movement but can not. She denies any other complaints. She denies any fever or chills. Denies any N/V or abdominal pain. Denies any chest pain or shortness of breath. Denies any dizziness or lightheadedness. Objective Vitals Vital Signs Date Time Temp Pulse Resp B/P (MAP) Pulse Ox O2 Delivery O2 Flow Rate FiO2 04/08/17 07:41 97.7 66 16 142/65 (90) 100 04/08/17 03:56 97.6 66 18 137/60 (85) 96 04/07/17 23:29 98.2 69 16 165/73 (103) 97 04/07/17 20:51 97.8 71 16 111/58 (75) 96 04/07/17 15:01 97.6 91 22 134/63 (86) 96 04/07/17 11:46 98.2 100 18 122/63 (82) 94 I/O 04/07/17 04/07/17 04/07/17 04/08/17 04/08/17 04/08/17 07:00 15:00 23:00 07:00 15:00 23:00 Intake Total 1000 ml Balance 1000 ml Intake IV Total 1000 ml Result Diagram: 04/08/17 0605 04/06/17 0517 Imaging Last Impressions Chest X-Ray 04/05/17 0000 Signed Impressions: Service Date/Time: Wednesday, April 05, 2017 13:39 - CONCLUSION: 1. No acute abnormality or significant interval change. Cameron Ponce MD Objective Remarks GENERAL: WDWN elderly female. INAD. Awake and alert. Oriented x 3 this am. Appears comfortable. SKIN: Warm and dry. No rash. HEAD: Normocephalic. Atraumatic. EYES: EOMI. No scleral icterus. No injection or drainage. ENT: No nasal bleeding or discharge. Mucous membranes pink and moist. NECK: Supple. Trachea midline. CARDIOVASCULAR: Regular rate and rhythm. 2/6 systolic murmur appreciated. RESPIRATORY: No accessory muscle use. Clear to auscultation. Breath sounds equal bilaterally. GASTROINTESTINAL: Abdomen soft, nondistended, nontender to palpation. (+)BS. MUSCULOSKELETAL: No obvious deformities. Extremities without clubbing, cyanosis , or edema. NEUROLOGICAL: Awake and alert. Able to move all extremities. Nonfocal. Normal speech. PSYCHIATRIC: Appropriate judgement and insight. Medications and IVs Current Medications Medications (Trade) Dose Ordered Sig/Goran Route Start Time Stop Time Status Last Admin Sodium Chloride 1,000 ml @ 75 mls/hr [id number] IV 04/05/17 17:00 04/07/17 13:41 (NS Flush) 2 ml UNSCH PRN IV FLUSH 04/05/17 16:15 (NS Flush) 2 ml BID IV FLUSH 04/05/17 21:00 04/07/17 09:34 (Tylenol) 650 mg Q4H PRN PO 04/05/17 16:15 (Zofran Inj) 4 mg Q6H PRN IVP 04/05/17 16:15 (Heparin Inj) 5,000 units Q12H SQ 04/05/17 17:00 04/08/17 05:53 (Narcan Inj) 0.4 mg UNSCH PRN IV PUSH 04/05/17 16:15 (Milk Of Magnesia Liq) 30 ml Q12H PRN PO 04/05/17 16:15 (Senokot) 17.2 mg Q12H PRN PO 04/05/17 16:15 (Dulcolax Supp) 10 mg DAILY PRN RECTAL 04/05/17 16:15 (Lactulose Liq) 30 ml DAILY PRN PO 04/05/17 16:15 (Aspirin Chew) 81 mg DAILY CHEW 04/06/17 09:00 04/08/17 08:13 (Vitamin D3) 2,000 units DAILY PO 04/06/17 09:00 04/08/17 08:16 (Aricept) 5 mg HS PO 04/05/17 21:00 04/07/17 20:58 (Ferrous Sulfate) 325 mg DAILY PO 04/06/17 09:00 04/08/17 08:15 (Remeron) 7.5 mg HS PO 04/05/17 21:00 04/07/17 20:58 Patient Own Medication PT OWN MED: Memant... DAILY PO 04/06/17 09:00 Future Hold (Pravachol) 20 mg DAILY PO 04/06/17 09:00 04/08/17 08:15 (D50w (Vial) Inj) 50 ml UNSCH PRN IV PUSH 04/05/17 18:15 (Glucagon Inj) 1 mg UNSCH PRN OTHER 04/05/17 18:15 (NovoLOG SUPPLEMENTAL SCALE) 1 ACHS SLIDING SCALE SQ 04/05/17 21:00 04/07/17 21:19 (Amaryl) 1 mg DAILYAC PO 04/07/17 08:45 Future Hold 04/07/17 09:33 (Kimmie-Colace) 1 tab BID PO 04/07/17 21:00 04/08/17 08:13 (Cardizem Cd) 120 mg DAILY PO 04/07/17 10:30 04/08/17 08:14 (Megace Liq) 400 mg DAILY PO 04/08/17 09:00 04/08/17 08:29 (Theragran M Tab) 1 tab DAILY PO 04/08/17 09:00 04/08/17 08:15 (Protonix) 40 mg DAILY PO 04/08/17 09:00 04/08/17 10:32 A/P Problem List: (1) Generalized weakness ICD Code: R53.1 - Weakness Status: Acute (2) Nausea and vomiting ICD Code: R11.2 - Nausea with vomiting, unspecified Status: Acute (3) Renal insufficiency ICD Code: N28.9 - Disorder of kidney and ureter, unspecified Assessment and Plan 86-year-old female with history of dementia, diabetes, arthritis, hyperlipidemia , presents with a 10 day history of generalized weakness, decreased appetite, and a 2-3 day history of nausea/vomiting. Generalized Weakness: suspect multifactorial secondary to dehydration, nausea/ vomiting, recent hospitalization, and possible worsening dementia. UA negative for UTI. CXR images reviewed and unremarkable. BMP positive for SUMA. Lactic acid 1.1. TSH slightly elevated at 4.390. -treated with IVF. Continue IVF hydration at 75cc/hr -Continue participation with PT. -Palliative care following, appreciate assistance. SUMA: secondary to dehydration from recent poor oral intake and nausea/vomiting. Cr 1.27, previously Cr 0.88 on 03/23/17. -treated with IVF hydration with NS at 125cc/hr -Avoid nephrotoxins -Resolved Poor Appetite/Nausea/Vomiting: unclear etiology, possibly gastroenteritis vs secondary to worsening dementia. Lipase and LFTs wnl. -start on diabetic diet with Glucerna shakes tid -Pedal Assembler consulted, appreciate recommendations -started on Megace for appetite stimulation Hypotension: BP 93/56, suspect secondary to dehydration -resolved. -continue patient's cardizem -monitor BP Possible Hypothyroidism Elevated TSH: mildly elevated at 4.390. -Free T4 1.54, Free T3 -Recommend follow up with PCP in 6-8 weeks and repeat thyroid function tests Dementia: with possible acute worsening recently. -continue patient's aricept, namenda Diabetes Mellitus: chronic -BS 223 -discontinue patient's glipizide. Begin Metformin 500mg po BID. -monitor Accu-checks and cover with SSI Hyperlipidemia: chronic, stable -continue patient's statin Constipation -Kimmie Colace BID -(+)large BM yesterday -Miralax prn Anemia -hemoglobin dropped 11 to 9.3. Concern for GIB given passing of hard black stool yesterday. Discussed at length with son Nguyễn who has requested we not pursue inpatient workup for possible GI bleed at this time. He will have patient follow up with PCP first part of next week. Discussed with Nguyễn s/sx of worsening anemia and/or GIB that would necessitate more urgent followup. D/ C Zantac and start on PPI. DVT Prophylaxis: Heparin sq Discussed with patient, nursing staff and Dr. Warren Problem Qualifiers (1) Nausea and vomiting: Qualified Codes: R11.2 - Nausea with vomiting, unspecified Suzanne Swenson Apr 08, 2017 10:44
[2017-04-08] MEDS ORDERED: POLYETHYLENE GLYCOL 17 GM PKG PO ONE ×2 (10:45)
[2017-04-08] MEDS ORDERED: SENN1TAB PO ×2 (10:48)
[2017-04-08] MEDS ORDERED: PANT40TA3 PO ×2 (10:48)
--- NOTE | 2017-04-08 10:53 | HHI.DCPOC ---
Discharge Care Plan Diagnosis: (1) Renal insufficiency (2) DM (diabetes mellitus) (3) Dementia (4) Intractable nausea and vomiting (5) Anemia (6) Poor appetite (7) Generalized weakness (8) Dementia (9) Thrombocytopenia (10) Hypertension (11) Hypotension (12) Melena (13) Debility (14) Acute kidney injury Goals to Promote Your Health * To prevent worsening of your condition and complications * To maintain your health at the optimal level Directions to Meet Your Goals Take your medications as prescribed Follow your dietary instruction Follow activity as directed Keep your appointments as scheduled Take your immunizations and boosters as scheduled If your symptoms worsen call your PCP, if no PCP go to Urgent Care Center or Emergency Room Smoking is Dangerous to Your Health. Avoid second hand smoke Call the 24-hour hour crisis hotline for domestic abuse at Suzanne Swenson Apr 08, 2017 10:52
--- NOTE | 2017-04-08 10:55 | HHI.DS ---
Discharge Summary Admission Date Apr 05, 2017 at 16:02 Discharge Date: Apr 08, 2017 Admitting Diagnosis generalized weakness (1) Acute kidney injury ICD Code: N17.9 - Acute kidney failure, unspecified (2) Generalized weakness ICD Code: R53.1 - Weakness Status: Acute (3) Dementia ICD Code: F03.90 - Unspecified dementia without behavioral disturbance (4) Nausea and vomiting ICD Code: R11.2 - Nausea with vomiting, unspecified Status: Acute (5) Renal insufficiency ICD Code: N28.9 - Disorder of kidney and ureter, unspecified (6) Intractable nausea and vomiting ICD Code: R11.2 - Nausea with vomiting, unspecified (7) Melena ICD Code: K92.1 - Melena (8) Anemia ICD Code: D64.9 - Anemia, unspecified (9) Poor appetite ICD Code: R63.0 - Anorexia (10) Debility ICD Code: R53.81 - Other malaise (11) Diabetes mellitus ICD Code: E11.9 - Type 2 diabetes mellitus without complications (12) Hypotension ICD Code: I95.9 - Hypotension, unspecified (13) Hypertension ICD Code: I10 - Essential (primary) hypertension (14) Thrombocytopenia ICD Code: D69.6 - Thrombocytopenia, unspecified Procedures None Brief History - From Admission Written by Nohemi Duval, acting as scribe for Dr. Warren on 04/05/17 at 17: 37. This note was transcribed by scribe Nohemi Duval PA-C. I, Dr. Nader Warren personally performed the history, physical exam, and medical decision making; and confirmed the accuracy of the information in the transcribed note. Authenticated by Dr. Nader Warren on 04/05/17 at 23:34. 86-year-old female with history of dementia, diabetes, arthritis, hypertension, hyperlipidemia, presents with a 10 day history of generalized weakness, decreased appetite, and a 2-3 day history of nausea/vomiting. The patient is awake, alert, and oriented to person, place, month/year but not events leading up to admission. She has dementia and memory loss therefore very poor historian. The patient's son is at bedside who is the POA and assists with the history. The patient lives at [place] in the assisted living facility. The son explains that the patient has just become more weak, doesn't want to get out of bed, doesn't want to participate in activities, and has a poor appetite. The son also reports on 03/18/17 the patient weighed 140lbs and he is worried that she is losing weight. The patient was recently admitted 03/22-03/23 for nausea/vomiting and weakness. The nausea/vomiting was suspected to be due to metformin and she was switched to glipizide however her symptoms have persisted. The son is worried that the patient is dehydrated. He states that she usually "perks up" after receiving IV fluids. The patient denies any other medical complaints including no fevers/chills, abdominal pain, dysuria, or hematuria. The son feels the patient may need to be at a facility with more assistance. He is agreeable to discuss goals of care with palliative care team. CBC/BMP: 04/08/17 0605 04/06/17 0517 Significant Findings Laboratory Tests Test 04/05/17 14:40 04/05/17 14:49 04/05/17 16:48 04/06/17 05:17 Red Blood Count 3.97 MIL/MM3 (4.00-5.30) 3.64 MIL/MM3 (4.00-5.30) Platelet Count 146 TH/MM3 (150-450) 113 TH/MM3 (150-450) Neutrophils (%) (Auto) 78.9 % (16.0-70.0) Blood Urea Nitrogen 20 MG/DL (7-18) Creatinine 1.27 MG/DL (0.50-1.00) Random Glucose 182 MG/DL (74-106) Albumin 3.2 GM/DL (3.4-5.0) Estimat Glomerular Filtration Rate 40 ML/MIN (>89) 52 ML/MIN (>89) Free Thyroxine 1.54 NG/DL (0.76-1.46) Thyroid Stimulating Hormone 3rd Gen 4.390 uIU/ML (0.358-3.740) Urine Turbidity HAZY (CLEAR) Urine Ketones 10 mg/dL (NEG) Urine Urobilinogen 4.0 MG/DL (LESS THAN Urine Leukocyte Esterase TRACE (NEG) Urine Bacteria RARE /hpf (NONE) Hemoglobin 11.0 GM/DL (11.6-15.3) Hematocrit 33.0 % (35.0-46.0) Monocytes (%) (Auto) 8.5 % (0.0-8.0) Eosinophils (%) (Auto) 4.6 % (0.0-4.0) Chloride Level 109 MEQ/L (98-107) Test 04/08/17 06:05 Red Blood Count 3.10 MIL/MM3 (4.00-5.30) Hemoglobin 9.3 GM/DL (11.6-15.3) Hematocrit 27.5 % (35.0-46.0) Platelet Count 110 TH/MM3 (150-450) Monocytes (%) (Auto) 9.5 % (0.0-8.0) Eosinophils (%) (Auto) 5.2 % (0.0-4.0) Imaging Last Impressions Chest X-Ray 04/05/17 0000 Signed Impressions: Service Date/Time: Wednesday, April 05, 2017 13:39 - CONCLUSION: 1. No acute abnormality or significant interval change. Cameron Ponce MD PE at Discharge GENERAL: WDWN elderly female. INAD. Awake and alert. Oriented x 3 this am. Appears comfortable. SKIN: Warm and dry. No rash. HEAD: Normocephalic. Atraumatic. EYES: EOMI. No scleral icterus. No injection or drainage. ENT: No nasal bleeding or discharge. Mucous membranes pink and moist. NECK: Supple. Trachea midline. CARDIOVASCULAR: Regular rate and rhythm. 2/6 systolic murmur appreciated. RESPIRATORY: No accessory muscle use. Clear to auscultation. Breath sounds equal bilaterally. GASTROINTESTINAL: Abdomen soft, nondistended, nontender to palpation. (+)BS. MUSCULOSKELETAL: No obvious deformities. Extremities without clubbing, cyanosis , or edema. NEUROLOGICAL: Awake and alert. Able to move all extremities. Nonfocal. Normal speech. PSYCHIATRIC: Appropriate judgement and insight. Pt update on day of discharge Follow up on patient with dementia, generalized weakness and SUMA. Patient seen and examined. Patient much more alert this morning. States she feels very well. She states she feels like she needs to have a bowel movement but can not. (+)Large BM yesterday. She denies any other complaints. She denies any fever or chills. Denies any N/V or abdominal pain. Denies any chest pain or shortness of breath. Denies any dizziness or lightheadedness. Discussed with nursing staff - no acute issues noted. Hospital Course 86-year-old female with history of dementia, diabetes, arthritis, hyperlipidemia , presents with a 10 day history of generalized weakness, decreased appetite, and a 2-3 day history of nausea/vomiting. Generalized Weakness: suspect multifactorial secondary to dehydration, nausea/ vomiting, recent hospitalization, and possible worsening dementia. UA negative for UTI. CXR images reviewed and unremarkable. BMP positive for SUMA. Lactic acid 1.1. TSH slightly elevated at 4.390. -treated with IVF. Continue IVF hydration at 75cc/hr -Continue participation with PT. -Palliative care following, appreciate assistance. SUMA: secondary to dehydration from recent poor oral intake and nausea/vomiting. Cr 1.27, previously Cr 0.88 on 03/23/17. -treated with IVF hydration with NS at 125cc/hr -Avoid nephrotoxins -Resolved Poor Appetite/Nausea/Vomiting: unclear etiology, possibly gastroenteritis vs secondary to worsening dementia. Lipase and LFTs wnl. -start on diabetic diet with Glucerna shakes tid -Linux System Admin consulted, appreciate recommendations -started on Megace for appetite stimulation Hypotension: BP 93/56, suspect secondary to dehydration -resolved. -continue patient's cardizem -monitor BP Possible Hypothyroidism Elevated TSH: mildly elevated at 4.390. -Free T4 1.54, Free T3 -Recommend follow up with PCP in 6-8 weeks and repeat thyroid function tests Dementia: with possible acute worsening recently. -continue patient's aricept, namenda Diabetes Mellitus: chronic -BS 223. Begin Metformin 500mg BID. -discontinue patient's glipizide -monitor Accu-checks and cover with SSI Hyperlipidemia: chronic, stable -continue patient's statin Constipation -Kimmie Colace BID -(+)large BM yesterday -Miralax prn Anemia -hemoglobin dropped 11 to 9.3. Concern for GIB given passing of hard black stool yesterday. Discussed at length with son Nguyễn who has requested we not pursue inpatient workup for possible GI bleed at this time. He will have patient follow up with PCP first part of next week. Discussed with Nguyễn s/sx of worsening anemia and/or GIB that would necessitate more urgent followup. D/ C Zantac and start on PPI. D/C ASA. F/U with GI as outpatient. Discussed with nursing staff, patient, Dr. Kelvin CM and Nguyễn, son Pt Condition on Discharge: Stable Discharge Disposition: RETIREMENT with [facility] Discharge Time: > 30 minutes Discharge Instructions DIET: Follow Instructions for: Heart Healthy Diet, Diabetic Diet Follow up Referrals: Gastroenterology - 1 Week PCP Follow-up - 1 Week New Medications: Metformin (Metformin) 500 Mg Tab 500 MG PO BIDPC for Blood Sugar Management, #60 TAB 0 Refills Multiple Vitamins W/ Minerals (Thera-M) 1 Tab 1 TAB PO DAILT for Nutritional Supplement for 30 Days, #30 TAB 0 Refills Walker with Front Wheels (Walker with Front Wheels) 1 Mis Mis EA .ROUTE DIRECTED, #1 0 Refills Megestrol Liq (Megestrol Liq) 40 Mg/Ml Susp 400 MG PO DAILY for APPETITE STIMULANT for 30 Days, #1 BOTTLE Pantoprazole (Pantoprazole) 40 Mg Tab 40 MG PO DAILY for Reflux for 30 Days, #30 TAB Sennosides-Docusate Sodium (Senna Plus 8.6-50 mg) 8.6 Mg-50 Mg Tab 1 TAB PO BID for Constipation for 30 Days, #60 TAB Continued Medications: Acetaminophen (Tylenol) 325 Mg Tab 650 MG PO Q4H PRN for pain, TAB 0 Refills Calcium Carbonate-Cholecalciferol (Calcium 600 with Vitamin D) 600-400 mg-Unit Tab 1 TAB PO BID for Calcium Supplement, TAB 0 Refills Cholecalciferol (Vitamin D3) 2,000 Unit Cap 2000 UNITS PO DAILY for Nutritional Supplement, #56 CAP 0 Refills Cyanocobalamin Inj (Cyanocobalamin Inj) 1,000 Mcg/Ml Inj 1000 MCG IM MONTHLY for Nutritional Supplement, #1 VIAL 0 Refills Diltiazem CD 24 HR (Diltiazem CD 24 HR) 120 Mg Caper 120 MG PO DAILY, #30 CAP 0 Refills Diphenhydramine (Diphenhydramine) 25 Mg Cap 25 MG PO HS PRN for INSOMNIA, CAP 0 Refills Donepezil (Donepezil) 5 Mg Tab 5 MG PO HS for Dementia, #30 TAB 0 Refills Epinephrine Inj (Epinephrine Inj) 1 Mg/Ml Inj 0.3 MG SQ ONCE PRN for ALLERGIC REACTION, #1 INJECTION Give with any signs of respiratory distress. Ferrous Sulfate (Ferrous Sulfate) 325 Mg (65 Mg Iron) Tablet 325 MG PO DAILY for Nutritional Supplement, #30 TAB 0 Refills Memantine Er (Namenda Xr) 28 Mg Caper 28 MG PO DAILY for Alzheimer Disease, #30 CAP 0 Refills Mirtazapine (Mirtazapine) 7.5 Mg Tab 7.5 MG PO HS for Depression Control, #30 TAB 0 Refills Simvastatin (Simvastatin) 10 Mg Tab 10 MG PO DAILY for Cholesterol Management, #30 TAB 0 Refills Discontinued Medications: Aspirin (Aspirin Low Dose) 81 Mg Chew 81 MG CHEW DAILY, TAB 0 Refills Glipizide ER (Glipizide ER) 2.5 Mg Tiarra 2.5 MG PO DAILY for Blood Sugar Management, #30 TAB 0 Refills Take with breakfast or first main meal of the day Ranitidine (Ranitidine) 150 Mg Tab 150 MG PO DAILY for Heartburn Management, #30 TAB 0 Refills Suzanne Swenson Apr 08, 2017 10:55
[2017-04-08] MEDS: SODIUM CHLOR 0.9% 1000 ML INJ 1,000 ML IV SCH ×2 (11:32)
[2017-04-08 12:00] VITALS: BP 133/61; PULSE 79; RESP 16; TEMP 98.1; O2SAT 97
--- NOTE | 2017-04-08 12:25 | HHI.HCPN ---
Reason for visit a. To assist with evaluation and management of symptoms including: Debility and poor appetite. b. To assist medical decision maker(s) with: better understanding of current medical conditions; weighing benefits/burdens of medical treatment options; making medical treatment decisions. . Subjective/Interval History Mrs. Clemente is an 86-year-old female to medical history significant for dementia , arthritis, hypertension, diabetes mellitus type 2, hyperlipidemia who is a resident of an assisted living facility. Patient presented to ED on 04/05/17 reports of weakness for the prior 10 days, nausea/vomiting and poor appetite. Patient was placed under observation. Palliative care was consulted at the request of patient's son for goals of care clarification. Patient seen in the ED. Alert and oriented x self, place and situation. Intermittent forgetfulness, however, easily reoriented. Patient reports feeling much better since arrival to ED. Denies pain, shortness of breath, nausea/vomiting or abdominal discomfort. Reports that her appetite has somewhat improved. Patient remains afebrile, stable hemodynamically. Tolerating room air, oxygen saturation in the mid to high 90s. Laboratory work Today revealing WBC 4.7, Hgb 9.3, platelet count 110. No new imaging for review. Patient reports that she is eager to return to her [facility]. Verbalized that she is aware of her higher level of needs, hopes to regain strength now that she is feeling better. As per prior conversations with patient's son, family considering long-term placement facility near [facility] to be closer to her. Telephone call to patient's son Chao, left message in voicemail. Case discussed with bedside RN. . Family/friend interactions See interval note. . Advance Directives Living Will: Completed, but not made available Health Care Surrogate: Completed, but not made available Durable Power of Plastic Surgery Technician: Completed, but not made available Advance Directive Specifics Health Care Surrogate(s): Patient report that living will/designation of healthcare surrogate has been completed naming her son Chao Clemente as healthcare surrogate decision maker. Pending copy. . Significant change in goals: Goals of care remain unchanged. . Objective Vital Signs Date Time Temp Pulse Resp B/P (MAP) Pulse Ox O2 Delivery O2 Flow Rate FiO2 04/08/17 07:41 97.7 66 16 142/65 (90) 100 04/08/17 03:56 97.6 66 18 137/60 (85) 96 04/07/17 23:29 98.2 69 16 165/73 (103) 97 04/07/17 20:51 97.8 71 16 111/58 (75) 96 04/07/17 15:01 97.6 91 22 134/63 (86) 96 Physical Exam CONSTITUTIONAL/GENERAL: This is a thin elderly female resting in bed in no acute distress. TUBES/LINES/DRAINS: PIV's. SKIN: Pale. No jaundice, rashes, or lesions. No wounds seen anteriorly. Skin temperature appropriate. Not diaphoretic. HEAD: Atraumatic. Normocephalic. EYES: Pupils equal and round and reactive. Extraocular motions intact. No scleral icterus. No injection or drainage. ENT: Hearing grossly normal. Nose without bleeding or purulent drainage. Moist oral mucosa. NECK: Trachea midline. Supple, nontender. CARDIOVASCULAR: Regular rate and rhythm. Systolic murmur. No JVD. Peripheral pulses symmetric. RESPIRATORY/CHEST: Symmetric, unlabored respirations. Clear, diminished to auscultation. Breath sounds equal bilaterally. No wheezes, rales, or rhonchi. GASTROINTESTINAL: Abdomen soft, non-tender, nondistended. No guarding. Bowel sounds present. GENITOURINARY: Without palpable bladder distension. MUSCULOSKELETAL: Extremities without clubbing, cyanosis, or edema. No calf tenderness. No mottling or clubbing. Muscular atrophy in all 4 extremities. NEUROLOGICAL: Awake and alert. Motor and sensory grossly within normal limits. Follows commands. Intermittent confusion/forgetfulness, easily reoriented. Moves all extremities. PSYCHIATRIC: No obvious anxiety/depression. no apparent hallucinations or other psychotic thought process. Patient is pleasant and cooperative. . Diagnostic Tests Laboratory Laboratory Tests Test 04/05/17 14:40 04/05/17 14:49 04/05/17 16:48 04/06/17 05:17 White Blood Count 8.9 TH/MM3 (4.0-11.0) 6.3 TH/MM3 (4.0-11.0) Red Blood Count 3.97 MIL/MM3 (4.00-5.30) 3.64 MIL/MM3 (4.00-5.30) Hemoglobin 12.0 GM/DL (11.6-15.3) 11.0 GM/DL (11.6-15.3) Hematocrit 35.3 % (35.0-46.0) 33.0 % (35.0-46.0) Mean Corpuscular Volume 88.9 FL (80.0-100.0) 90.7 FL (80.0-100.0) Mean Corpuscular Hemoglobin 30.3 PG (27.0-34.0) 30.2 PG (27.0-34.0) Mean Corpuscular Hemoglobin Concent 34.0 % (32.0-36.0) 33.2 % (32.0-36.0) Red Cell Distribution Width 14.1 % (11.6-17.2) 14.6 % (11.6-17.2) Platelet Count 146 TH/MM3 (150-450) 113 TH/MM3 (150-450) Mean Platelet Volume 8.8 FL (7.0-11.0) 9.0 FL (7.0-11.0) Neutrophils (%) (Auto) 78.9 % (16.0-70.0) 56.0 % (16.0-70.0) Lymphocytes (%) (Auto) 13.9 % (9.0-44.0) 30.6 % (9.0-44.0) Monocytes (%) (Auto) 6.2 % (0.0-8.0) 8.5 % (0.0-8.0) Eosinophils (%) (Auto) 0.8 % (0.0-4.0) 4.6 % (0.0-4.0) Basophils (%) (Auto) 0.2 % (0.0-2.0) 0.3 % (0.0-2.0) Neutrophils # (Auto) 7.0 TH/MM3 (1.8-7.7) 3.5 TH/MM3 (1.8-7.7) Lymphocytes # (Auto) 1.2 TH/MM3 (1.0-4.8) 1.9 TH/MM3 (1.0-4.8) Monocytes # (Auto) 0.6 TH/MM3 (0-0.9) 0.5 TH/MM3 (0-0.9) Eosinophils # (Auto) 0.1 TH/MM3 (0-0.4) 0.3 TH/MM3 (0-0.4) Basophils # (Auto) 0.0 TH/MM3 (0-0.2) 0.0 TH/MM3 (0-0.2) CBC Comment DIFF FINAL DIFF FINAL Differential Comment Blood Urea Nitrogen 20 MG/DL (7-18) 15 MG/DL (7-18) Creatinine 1.27 MG/DL (0.50-1.00) 1.00 MG/DL (0.50-1.00) Random Glucose 182 MG/DL (74-106) 100 MG/DL (74-106) Total Protein 6.6 GM/DL (6.4-8.2) Albumin 3.2 GM/DL (3.4-5.0) Calcium Level 9.6 MG/DL (8.5-10.1) 8.6 MG/DL (8.5-10.1) Alkaline Phosphatase 60 U/L (45-117) Aspartate Amino Transf (AST/SGOT) 16 U/L (15-37) Alanine Aminotransferase (ALT/SGPT) 15 U/L (10-53) Total Bilirubin 0.5 MG/DL (0.2-1.0) Sodium Level 136 MEQ/L (136-145) 140 MEQ/L (136-145) Potassium Level 4.5 MEQ/L (3.5-5.1) 4.3 MEQ/L (3.5-5.1) Chloride Level 103 MEQ/L (98-107) 109 MEQ/L (98-107) Carbon Dioxide Level 24.7 MEQ/L (21.0-32.0) 22.8 MEQ/L (21.0-32.0) Anion Gap 8 MEQ/L (5-15) 8 MEQ/L (5-15) Estimat Glomerular Filtration Rate 40 ML/MIN (>89) 52 ML/MIN (>89) Lipase 205 U/L (73-393) Free Thyroxine 1.54 NG/DL (0.76-1.46) Free Triiodothyronine (T3) pg/dL 3.14 PG/ML (2.18-3.98) Thyroid Stimulating Hormone 3rd Gen 4.390 uIU/ML (0.358-3.740) Urine Color YELLOW (YELLW/STRAW) Urine Turbidity HAZY (CLEAR) Urine pH 7.0 (5.0-8.5) Urine Specific [place] 1.016 (1.002-1.035) Urine Protein NEG mg/dL (NEG-TRACE) Urine Glucose (UA) NEG mg/dL (NEG) Urine Ketones 10 mg/dL (NEG) Urine Occult Blood NEG (NEG) Urine Nitrite NEG (NEG) Urine Bilirubin NEG (NEG) Urine Urobilinogen 4.0 MG/DL (LESS THAN Urine Leukocyte Esterase TRACE (NEG) Urine RBC LESS THAN 1 /hpf (0-3) Urine WBC 5 /hpf (0-5) Urine Squamous Epithelial Cells <1 /hpf (0-5) Urine Amorphous Sediment RARE Urine Bacteria RARE /hpf (NONE) Microscopic Urinalysis Comment CULT NOT INDICATED Lactic Acid Level 1.1 mmol/L (0.4-2.0) Test 04/08/17 06:05 White Blood Count 4.7 TH/MM3 (4.0-11.0) Red Blood Count 3.10 MIL/MM3 (4.00-5.30) Hemoglobin 9.3 GM/DL (11.6-15.3) Hematocrit 27.5 % (35.0-46.0) Mean Corpuscular Volume 88.9 FL (80.0-100.0) Mean Corpuscular Hemoglobin 30.0 PG (27.0-34.0) Mean Corpuscular Hemoglobin Concent 33.8 % (32.0-36.0) Red Cell Distribution Width 14.2 % (11.6-17.2) Platelet Count 110 TH/MM3 (150-450) Mean Platelet Volume 9.0 FL (7.0-11.0) Neutrophils (%) (Auto) 49.7 % (16.0-70.0) Lymphocytes (%) (Auto) 35.3 % (9.0-44.0) Monocytes (%) (Auto) 9.5 % (0.0-8.0) Eosinophils (%) (Auto) 5.2 % (0.0-4.0) Basophils (%) (Auto) 0.3 % (0.0-2.0) Neutrophils # (Auto) 2.4 TH/MM3 (1.8-7.7) Lymphocytes # (Auto) 1.7 TH/MM3 (1.0-4.8) Monocytes # (Auto) 0.5 TH/MM3 (0-0.9) Eosinophils # (Auto) 0.2 TH/MM3 (0-0.4) Basophils # (Auto) 0.0 TH/MM3 (0-0.2) CBC Comment DIFF FINAL Differential Comment Result Diagram: 04/08/1705 04/06/17 0517 Assessment and Plan Disease Oriented Problem List: (1) Renal insufficiency (2) Generalized weakness (3) DM (diabetes mellitus) (4) Dementia Symptom Scale: (1) Debility 0-10 Scale: Unable to quantify Comment: Progressive. (2) Nausea and vomiting 0-10 Scale: 0 Pertinent Non-Medical Issues Psychosocial: Patient originally from [facility]. Moved to [place] in 1973. 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 Patient is a , her in the . Patient has 3 children: Son Chao her michael in [place], daughter Siobhan Walker who lives in [place] and son Luis Fernando who lives in [place]. No service. Spiritual: No orthodox affiliations. Legal: Patient reports that living will has been completed. Pending copy. Ethical issues impacting care: No ethical issues identified. . Important Contacts Son/HCS Chao Clemente and . . Prognosis Mrs. Clemente is an 86-year-old female to medical history significant for dementia , arthritis, hypertension, diabetes mellitus type 2, hyperlipidemia who is a resident of an assisted living facility. Patient presented to ED on 04/05/17 reports of weakness for the prior 10 days, nausea/vomiting and poor appetite. Patient for hypertension, acute kidney injury, generalized weakness and was placed under observation. Patient with progressive physical decline to include worsening generalized weakness, poor activity tolerance, poor appetite and poor oral intake. Patient at risk for complications, continue decline and given comorbidities, progressive decline and advanced age. . Code Status: No Code Plan * CODE STATUS: Pt electing DNR/DNI. This is supported by patient's son Chao. Community DNR signed and placed in chart. * HEALTH CARE [id number]: Patient participating in medical decision- making. Baseline mild dementia, intermittent confusion which wax and wane. During this visit, patient appears to have a good understanding of her disease process and the ability to weigh benefits vs burdens of treatment options. Patient reports that living will/designation of healthcare surrogate previously completed naming her son Chao Clemente as healthcare surrogate decision maker. Palliative care recommends shared decision-making given baseline dementia. * GOALS OF CARE: Patient/family electing to continue current conservative management short of NO code. Plan to return to [facility] with Homehealth care; however, Patient/family considering long-term placement facility near [facility] given progressive decline. Hospice philosophy and benefits introduced. Patient and son receptive to hospice should her clinical condition continues to worsen or patient elects comfort-directed care. * SYMPTOMS: = Poor appetite and oral intake: Patient endorsing poor appetite for the past few weeks. Parts Room Clerk has been consulted, patient was started on Megace. Reports that appetite has somewhat improved. = Debility: Progressive , worsening over the past 4 weeks. PT following, recommending rehabilitation. =Nausea/vomiting: Resolved at this time. * Case discussed with bedside RN. * Palliative care contact information has been provided to patient and son. * Palliative care will continue to follow-up for further clarifications of goals of care as patient's clinical course continues to evolve. . Time Spent Total Floor Time (mins): 22 (Total time to include review of medical records, physical exam, goals of care conversation with patient, telephone call to patient's son/left message in voicemail, case discussion with bedside RN.) >50% Counseling/Coord of Care: Yes Attestation To help prompt me to consider important information that might be impacting today's encounter and assessment, information from prior notes written by myself or my colleagues may have been "brought forward" into today's note. My signature on this note, however, is an attestation that I personally performed the exam, history, and/or decision-making noted today, and, unless otherwise indicated, the interactions with patient, family, and staff as well as the review of records all occurred today. I also attest that the listed assessment and stated plan reflect my best clinical judgment today based on the combination of historical information, prior notes, and today's exam/ interactions. When time spent is documented, it refers only to time spent today by the signer, or if indicated, combined time spent today by collaborating physician/nurse practitioner. Theresa Plummer Apr 08, 2017 12:25
[2017-04-08] MEDS ORDERED: METF500T PO ×2 (13:16)
== END 2017-04-08 14:15 ==
LOC: NEPC 12:44 → NEDA 16:02 → UNDOADMOB 16:04 → INTOOBSV 16:14 → OBSVTOIN 16:14 → NEPFCDU 19:56 → NEDA 19:56 → NEPFCDU 19:56
PROVIDERS: ADMIT Hospitalist; ATTEND Hospitalist
DX: N17.9 Acute kidney failure, unspecified (principal); R53.1 Weakness; F03.90 Unspecified dementia, unspecified severity, without behavioral disturbance, psychotic disturbance, mood disturbance, and anxiety; R11.2 Nausea with vomiting, unspecified; N28.9 Disorder of kidney and ureter, unspecified; K92.1 Melena; D64.9 Anemia, unspecified; R63.0 Anorexia; E11.9 Type 2 diabetes mellitus without complications; I95.9 Hypotension, unspecified; I10 Essential (primary) hypertension; D69.6 Thrombocytopenia, unspecified; E78.5 Hyperlipidemia, unspecified; K59.00 Constipation, unspecified; Z66 Do not resuscitate; Z79.84 Long term (current) use of oral hypoglycemic drugs
CPT/HCPCS: 71010; 80048; 80053; 81001; 82948; 83605; 83690; 84439; 84443; 84481; 85025; 93005; 96361; 96372; 96374; 97110; 97116; 97163; 97166; 97530; 99285; G0378; G8987; G8988; J1644; J1815; J2405; J7030; P9612

== ENCOUNTER 2017-04-15 13:05 | Inpatient (IN) | payer OTHER, MEDICARE ==
[2017-04-15] VITALS (8 sets, daily range): BP systolic 87–118; BP diastolic 48–67; PULSE 88–106; RESP 18–20; TEMP 96.4–97.8; O2SAT 95–98
[~2017-04-15] VITALS: Ht 165.1 cm; Wt 57.0 kg
[~2017-04-15 13:05] MED LIST changes: -ASPI81CH37 CHEW; -DILT-60 PO; +DILT120C50 PO; +FERR325T18 PO; -FERR325T8 PO; -GLIP1TAB60 PO; +MEGE40SU PO; +METF500T PO; +PANT40TA3 PO; -RANI150T PO; +SENN1TAB PO; +THERTAB17 PO; +WALKER WHEELS/F1 MIS; -nystatin
[2017-04-15] MEDS ORDERED: VITA10004 IM (13:25)
[2017-04-15] MEDS ORDERED: RANI150T PO (13:25)
[2017-04-15] MEDS ORDERED: GLIP1TAB60 PO (13:25)
[2017-04-15] MEDS ORDERED: CHOL100025 CHEW (13:25)
[2017-04-15] MEDS ORDERED: MEGASUS2 PO (13:25)
[2017-04-15] MEDS ORDERED: CALC600T4 PO (13:25)
[2017-04-15] MEDS ORDERED: THERM PO (13:25)
[2017-04-15] MEDS ORDERED: SENN8.6T25 PO (13:25)
[2017-04-15] MEDS ORDERED: SODIUM CHLORIDE 0.9% FLUSH 10 ML FLUSH IV FLUSH PRN ×2 (13:30→17:15)
[2017-04-15 13:50] LABS: AUTOMATED NEUTROPHIL # 6.4 TH/MM3 (1.8-7.7); BASOPHIL # 0.3 TH/MM3 (0-0.2); BASOPHIL % 3.3 % (0.0-2.0); EOSINOPHIL # 0.4 TH/MM3 (0-0.4); EOSINOPHIL % 3.4 % (0.0-4.0); HEMATOCRIT 35.4 % (35.0-46.0); HEMO FLAGS DIFF FINAL; LYMPH % 23.7 % (9.0-44.0); LYMPHOCYTE # 2.5 TH/MM3 (1.0-4.8); MEAN CELL VOLUME 87.8 FL (80.0-100.0); MEAN CORPUSCULAR HGB CONC 34.1 % (32.0-36.0); MONO % 8.1 % (0.0-8.0); NEUT % 61.5 % (16.0-70.0); PLATELET COUNT 156 TH/MM3 (150-450); RED BLOOD COUNT 4.03 MIL/MM3 (4.00-5.30); RED CELL DISTRIBUTION WIDTH 13.8 % (11.6-17.2); WHITE BLOOD COUNT 10.4 TH/MM3 (4.0-11.0)
[2017-04-15 13:58] LABS: CHLORIDE 105 MEQ/L (98-107); SODIUM (NA) 134 MEQ/L (136-145)
[2017-04-15 14:02] LABS: ANION GAP 11 MEQ/L (5-15); BICARBONATE 18.3 MEQ/L (21.0-32.0); BLOOD UREA NITROGEN 28 MG/DL (7-18); POTASSIUM 4.9 MEQ/L (3.5-5.1)
[2017-04-15 14:05] LABS: ALT (GPT) 15 U/L (10-53); AST (GOT) 34 U/L (15-37); GLOMERULAR FILTRATION RATE 42 ML/MIN (>89)
[2017-04-15 14:08] LABS: ALKALINE PHOSPHATASE 54 U/L (45-117)
--- NOTE | 2017-04-15 14:54 | PD ---
HPI Chief Complaint: Abdominal Pain Time Seen by Provider: 13:18 Travel History International Travel<30 days: No Contact w/Intl Traveler<30days: No Traveled to known affect area: No History of Present Illness HPI Patient's 86 years old. She has a history of dementia and diabetes and lives in an LONG TER[place]. She has not eaten or drank anything for the past day or so. She was sent here for investigation. Additional complaints include oliguria and constipation for about 2 days. In the ER she describes a generalized sensation of malaise however does not offer much in the way of specifics. No fever. No vomiting. Location generalized. Severity moderate. PFSH Past Medical History Anxiety: No Depression: No Heart Rhythm Problems: No Cancer: No Cardiovascular Problems: Yes High Cholesterol: Yes Chest Pain: No Congestive Heart Failure: No Dementia: Yes Diabetes: Yes Patient Takes Glucophage: No Diminished Hearing: Yes Endocrine: Yes Gastrointestinal Disorders: Yes (abd sx) Genitourinary: No (UTI) Hypertension: Yes Musculoskeletal: Yes (ankle fx, shoulder fx, arthritis) Neurologic: Yes (dementia) Reproductive: No Respiratory: No Immunizations Current: Yes Thyroid Disease: No ?: Not Menopausal: Yes Past Surgical History Other Surgery: Yes (ankle fx, shoulder fx, D&C, abd.) Social History Alcohol Use: Yes (OCCASIONAL) Tobacco Use: No Substance Use: No Allergies-Medications (Allergen,Severity, Reaction): Coded Allergies: Influenza Virus Vaccines (Unverified Allergy, Severe, 04/15/17) ciprofloxacin (Unverified Allergy, Severe, 04/15/17) lisinopril (Verified Allergy, Severe, Edema, 04/15/17) losartan (Unverified Allergy, Severe, 04/15/17) Reported Meds & Prescriptions Reported Meds & Active Scripts Active Keflex (Cephalexin) 250 Mg Cap 250 Mg PO Q8HR 5 Days Pantoprazole (Pantoprazole Sodium) 40 Mg Tab 40 Mg PO DAILY 30 Days Reported Vitamin D3 (Cholecalciferol) 1,000 Unit Chew 2,000 Units CHEW DAILY Vitamin B12 Tr (Cyanocobalamin) 1,000 Mcg Tab 1,000 Mcg IM MONTHLY Senna Laxative (Sennosides) 8.6 Mg Tab 1 Tab PO BID Ranitidine (Ranitidine HCl) 150 Mg Tab 150 Mg PO DAILY Thera M Plus (Multivitamins/Minerals Therapeutic) 1 Tab 1 Tab PO DAILY Megace ES Liq (Megestrol ES Liq) 625 Mg/5 Ml Susp 400 Mg PO DAILY Glipizide ER (Glipizide) 2.5 Mg Tiarra 2.5 Mg PO DAILY Take with breakfast or first main meal of the day Calcium Carbonate 1,500 Mg Tab 600 Mg PO BID 1,500 mg calcium carbonate (600 mg elemental calcium) Cyanocobalamin Inj (Cyanocobalamin) 1,000 Mcg/Ml Inj 1,000 Mcg IM MONTHLY Mirtazapine 7.5 Mg Tab 7.5 Mg PO HS Ferrous Sulfate 325 Mg (65 Mg Iron) Tablet 325 Mg PO DAILY Vitamin D3 (Cholecalciferol) 2,000 Unit Cap 2,000 Units PO DAILY Epinephrine Inj (Epinephrine HCl) 1 Mg/Ml Inj 0.3 Mg SQ ONCE PRN Give with any signs of respiratory distress. Simvastatin 10 Mg Tab 10 Mg PO DAILY Namenda Xr (Memantine) 28 Mg Caper 28 Mg PO DAILY Donepezil 5 Mg Tab 5 Mg PO HS Diphenhydramine (Diphenhydramine HCl) 25 Mg Cap 25 Mg PO HS PRN Diltiazem CD 24 HR 120 Mg Caper 120 Mg PO DAILY Review of Systems Except as stated in HPI: all other systems reviewed are Neg General / Constitutional: No: Fever Physical Exam Narrative GENERAL: 86-year-old female well-nourished well-developed elderly somewhat uncomfortable due to pain SKIN: Warm and dry. HEAD: Atraumatic. Normocephalic. EYES: Pupils equal and round. No scleral icterus. No injection or drainage. ENT: No nasal bleeding or discharge. Mucous membranes pink and moist. NECK: Trachea midline. No JVD. CARDIOVASCULAR: Regular rate and rhythm. RESPIRATORY: No accessory muscle use. Clear to auscultation. Breath sounds equal bilaterally. GASTROINTESTINAL: Soft. Diffuse tenderness to palpation. MUSCULOSKELETAL: Extremities without clubbing, cyanosis, or edema. No obvious deformities. NEUROLOGICAL: Awake and alert. No obvious cranial nerve deficits. Motor grossly within normal limits. Five out of 5 muscle strength in the arms and legs. Normal speech. PSYCHIATRIC: Appropriate mood and affect; insight and judgment normal. Data Data Last Documented VS Vital Signs Date Time Temp Pulse Resp B/P (MAP) Pulse Ox O2 Delivery O2 Flow Rate FiO2 04/15/17 17:06 99 18 118/60 (79) 95 Nasal Cannula 2.00 04/15/17 13:08 97.8 Vital Signs Date Time Temp Pulse Resp B/P (MAP) Pulse Ox O2 Delivery O2 Flow Rate FiO2 04/15/17 17:06 99 18 118/60 (79) 95 Nasal Cannula 2.00 04/15/17 14:48 105 18 102/59 (73) 98 Room Air 04/15/17 13:45 100 18 112/48 (69) 96 Nasal Cannula 2.00 04/15/17 13:33 103 18 87/59 (68) 96 Nasal Cannula 2.00 04/15/17 13:08 97.8 106 18 103/67 (79) 97 Orders Orders Complete Blood Count With Diff (04/15/17 13:22) Comprehensive Metabolic Panel (04/15/17 13:22) Lipase (04/15/17 13:22) Urinalysis - C+S If Indicated (04/15/17 13:22) Ct Abd/Pel W Iv Contrast(Rout) (04/15/17 13:22) Iv Access Insert/Monitor (04/15/17 13:22) Ecg Monitoring (04/15/17 13:22) Oximetry (04/15/17 13:22) Sodium Chloride 0.9% Flush (Ns Flush) (04/15/17 13:30) Urine Culture (04/15/17 14:35) Iohexol 350 Inj (Omnipaque 350 Inj) (04/15/17 15:08) Urinary Catheter Insert/Apply (04/15/17 15:32) Cephalexin (Keflex) (04/15/17 16:30) Admit Order (Ed Use Only) (04/15/17 ) Vital Signs (Adult) Q4H (04/15/17 17:07) Diet Heart Healthy (04/15/17 Dinner) Activity Bed Rest (04/15/17 17:07) Labs Laboratory Tests Test 04/15/17 13:40 04/15/17 14:35 White Blood Count 10.4 TH/MM3 Red Blood Count 4.03 MIL/MM3 Hemoglobin 12.1 GM/DL Hematocrit 35.4 % Mean Corpuscular Volume 87.8 FL Mean Corpuscular Hemoglobin 30.0 PG Mean Corpuscular Hemoglobin Concent 34.1 % Red Cell Distribution Width 13.8 % Platelet Count 156 TH/MM3 Mean Platelet Volume 9.1 FL Neutrophils (%) (Auto) 61.5 % Lymphocytes (%) (Auto) 23.7 % Monocytes (%) (Auto) 8.1 % Eosinophils (%) (Auto) 3.4 % Basophils (%) (Auto) 3.3 % Neutrophils # (Auto) 6.4 TH/MM3 Lymphocytes # (Auto) 2.5 TH/MM3 Monocytes # (Auto) 0.8 TH/MM3 Eosinophils # (Auto) 0.4 TH/MM3 Basophils # (Auto) 0.3 TH/MM3 CBC Comment DIFF FINAL Differential Comment Blood Urea Nitrogen 28 MG/DL Creatinine 1.20 MG/DL Random Glucose 176 MG/DL Total Protein 6.6 GM/DL Albumin 3.0 GM/DL Calcium Level 9.2 MG/DL Alkaline Phosphatase 54 U/L Aspartate Amino Transf (AST/SGOT) 34 U/L Alanine Aminotransferase (ALT/SGPT) 15 U/L Total Bilirubin 1.0 MG/DL Sodium Level 134 MEQ/L Potassium Level 4.9 MEQ/L Chloride Level 105 MEQ/L Carbon Dioxide Level 18.3 MEQ/L Anion Gap 11 MEQ/L Estimat Glomerular Filtration Rate 42 ML/MIN Lipase 334 U/L Urine Color YELLOW Urine Turbidity CLOUDY Urine pH 6.5 Urine Specific [place] 1.017 Urine Protein NEG mg/dL Urine Glucose (UA) NEG mg/dL Urine Ketones 15 mg/dL Urine Occult Blood SMALL Urine Nitrite NEG Urine Bilirubin SMALL Urine Leukocyte Esterase MOD Urine WBC 0-2 /hpf Urine Squamous Epithelial Cells 0-5 /hpf Urine Amorphous Sediment LARGE Urine Bacteria MANY /hpf Microscopic Urinalysis Comment CULTURE INDICATED MDM Medical Decision Making Medical Screen Exam Complete: Yes Emergency Medical Condition: Yes Medical Record Reviewed: Yes Differential Diagnosis Constipation, Gastritis, Acute Cholecystitis, Biliary Colic, Pancreatitis, TIRPP , Hepatitis, Bowel Obstruction, Cystitis, Mesenteric Ischemia, AAA, Appendicitis , Renal Stone/Hydronephrosis, GERD, perforated viscous Narrative Course CBC & BMP Diagram 04/15/17 13:40 Total Protein 6.6, Albumin 3.0 L, Calcium Level 9.2, Alkaline Phosphatase 54, Aspartate Amino Transf (AST/SGOT) 34, Alanine Aminotransferase (ALT/SGPT) 15, Total Bilirubin 1.0 Urinalysis reveals a UTI A straight catheter was placed about 800 cc clear urine were collected Last Impressions Abdomen/Pelvis CT 04/15/17 1322 Signed Impressions: Service Date/Time: April 14:58 - CONCLUSION: 1. No acute process. 2. No evidence of suspicious mass or lymphadenopathy. 3. Distended urinary bladder. 4. Fecal impaction in the rectum. Carlos Talamantes MD Lees catheter is placed about 500 cc of clear urine collected. The patient be admitted for IV hydration and IV antibiotics. Discussed with Dr. Roberts. Diagnosis Primary Impression: UTI (urinary tract infection) Qualified Codes: N30.01 - Acute cystitis with hematuria Admitting Information Admitting Physician Requests: Observation Referrals: Bari Torres MD Primary Care Physician Scripts Cephalexin (Keflex) 250 Mg Cap 250 MG PO Q8HR for Infection for 5 Days, CAP 0 Refills Prov: Aldo Russo MD 04/15/17 Aldo Russo MD Apr 15, 2017 14:54
[2017-04-15 14:56] LABS: BLOOD, URINE SMALL (NEG); GLUCOSE,URINE NEG (NEG); KETONE, URINE 15 mg/dL (NEG); NITRITE,URINE NEG (NEG); PH, URINE 6.5 (5.0-8.5)
[2017-04-15 15:03] LABS: URINE COLOR YELLOW (YELLW/STRAW)
[2017-04-15 15:06] LABS: BACTERIA, URINE MANY /hpf; SQUAMOUS EPITHELIAL CELL URINE 0-5 /hpf (0-5); WBC, URINE 0-2 /hpf (0-5)
[2017-04-15 15:07] LABS: COMMENT (UR) CULTURE INDICATED; CULTURE IF INDICATED CULTURE INDICATED
[2017-04-15] MEDS ORDERED: IOHEXOL 350 MG/ML 10 ML VIAL (for RAD DIAG) IVCONTRAST ONE (15:08)
--- NOTE | 2017-04-15 15:51 | RADRPT ---
EXAM DATE/TIME: 04/15/2017 14:58 [facility] COMPARISON: CT ABDOMEN & PELVIS W CONTRAST, July 31, 2014, 0:37. INDICATIONS : Diffuse abdominal pain, dysuria and constipation x 3 days. IV CONTRAST: 75 cc Omnipaque 350 (iohexol) IV ORAL CONTRAST: No oral contrast ingested. RADIATION DOSE: 5.38 CTDIvol (mGy) MEDICAL HISTORY : Dementia. Myocardial infarction. Diabetes mellitus type 2.Hypertension. SURGICAL HISTORY : None. ENCOUNTER: Initial ACUITY: 1 day PAIN SCALE: 8/10 LOCATION: Abdomen. TECHNIQUE: Volumetric scanning of the abdomen and pelvis was performed. Using automated exposure control and ad justment of the mA and/or kV according to patient size, radiation dose was kept as low as reasonably achievable to obtain optimal diagnostic quality images. DICOM format image data is available electro nically for review and comparison. FINDINGS: LOWER LUNGS: The visualized lower lungs are clear. LIVER: Homogeneous density without lesion. There is no dilation of the biliary tree. No calcified gallston es. SPLEEN: Normal size without lesion. Small calcified granulomas are noted. PANCREAS: Within normal limits. KIDNEYS: Bilateral cortical thinning worse on the left is noted. There is no evidence of hydronephrosis or purvi picious renal masses. ADRENAL GLANDS: Within normal limits. VASCULAR: There is no aortic aneurysm. BOWEL/MESENTERY: The stomach, small bowel, and colon demonstrate no acute abnormality. There is no free intraperitone al air or fluid. Large fecal bolus is noted in the rectum which may represent a fecal impaction. ABDOMINAL WALL: Within normal limits. RETROPERITONEUM: There is no lymphadenopathy. BLADDER: Bladder is distended. No wall thickening or mass. REPRODUCTIVE: Within normal limits. INGUINAL: There is no lymphadenopathy or hernia. MUSCULOSKELETAL: Within normal limits for patient age. CONCLUSION: 1. No acute process. 2. No evidence of suspicious mass or lymphadenopathy. 3. Distended urinary bladder. 4. Fecal impaction in the rectum. Carlos Talamantes MD on April 15, 2017 at 15:45 Board Certified Radiologist. This report was verified electronically.
[2017-04-15] MEDS ORDERED: CEPH-459 PO (16:05)
--- NOTE | 2017-04-15 16:24 | HHI.FF ---
Face to Face Verification Diagnosis: (1) Dementia Home Health Nursing Order: Lees catheter maintenance I have seen patient Munira Clemente on 04/15/17. My clinical findings support the need for the requested home health care services because: Deconditioned w/ increased weakness Limited ability to care for self I certify that my clinical findings support that this patient is homebound because: Impaired cognitive ability/safety Aldo Russo MD Apr 15, 2017 16:24
[2017-04-15] MEDS ORDERED: CEPHALEXIN MONOHYDRATE 500 MG CAP PO ONE (16:30)
[2017-04-15] MEDS ORDERED: SENNOSIDES 8.6 MG TAB PO PRN (17:15)
[2017-04-15] MEDS ORDERED: DOCUSATE SODIUM 50 MG/SENNA 8.6 MG TAB PO ONE (17:15)
[2017-04-15] MEDS ORDERED: NALOXONE HCL 0.4 MG/ML AMP IV PUSH PRN (17:15)
[2017-04-15] MEDS ORDERED: ONDANSETRON HCL 4 MG/2 ML VIAL IVP PRN (17:15)
[2017-04-15] MEDS ORDERED: LACTULOSE SYRUP 20 GM/30 ML CUP PO PRN (17:15)
[2017-04-15] MEDS ORDERED: MAGNESIUM HYDROXIDE SUSP 30 ML CUP PO PRN (17:15)
[2017-04-15] MEDS ORDERED: BISACODYL 10 MG SUPP RECTAL PRN (17:15)
[2017-04-15] MEDS ORDERED: MAGNESIUM HYDROXIDE SUSP 30 ML CUP PO ONE (18:00)
[2017-04-15] MEDS ORDERED: SOD PHOSPHATE/SOD BIPHOSPHATE (ADULT) ENEMA 133ML RECTAL ONE (18:00)
[2017-04-15] MEDS: D5-1/2 NS + KCL 20 MEQ INJ 1,000 ML IV SCH (18:10)
[2017-04-15] MEDS ORDERED: SODIUM BICARBONATE 650 MG TAB PO ONE (20:00)
[2017-04-15] MEDS: DOCUSATE SODIUM 50 MG/SENNA 8.6 MG TAB PO SCH (20:59)
[2017-04-15] MEDS: MIRTAZAPINE 15 MG TAB PO SCH (20:59)
[2017-04-15] MEDS: DONEPEZIL HCL 5 MG TAB PO SCH (20:59)
[2017-04-15] MEDS: MEMANTINE HCL 10 MG TAB PO SCH (20:59)
[2017-04-15] MEDS: SODIUM CHLORIDE 0.9% FLUSH 10 ML FLUSH IV FLUSH SCH (21:00)
[2017-04-15] MEDS: INSULIN ASPART SUPPLEMENTAL SCALE SQ SCH (22:02)
[2017-04-15] MEDS ORDERED: SODIUM BICARBONATE 325 MG TAB PO ONE (22:45)
[2017-04-16] VITALS: BP 124/86; PULSE 107; RESP 20; TEMP 96; O2SAT 95
[2017-04-16] MEDS: D5-1/2 NS + KCL 20 MEQ INJ 1,000 ML IV SCH ×3 (03:09→17:41)
[2017-04-16 06:46] LABS: AUTOMATED NEUTROPHIL # 4.9 TH/MM3 (1.8-7.7); BASOPHIL # 0.1 TH/MM3 (0-0.2); BASOPHIL % 0.7 % (0.0-2.0); EOSINOPHIL # 0.2 TH/MM3 (0-0.4); EOSINOPHIL % 3.1 % (0.0-4.0); HEMO FLAGS DIFF FINAL; LYMPH % 24.8 % (9.0-44.0); LYMPHOCYTE # 1.9 TH/MM3 (1.0-4.8); MEAN CELL VOLUME 87.7 FL (80.0-100.0); MEAN CORPUSCULAR HEMOGLOBIN 28.9 PG (27.0-34.0); MONO % 8.9 % (0.0-8.0); NEUT % 62.5 % (16.0-70.0); PLATELET COUNT 131 TH/MM3 (150-450); RED BLOOD COUNT 3.54 MIL/MM3 (4.00-5.30); WHITE BLOOD COUNT 7.8 TH/MM3 (4.0-11.0)
[2017-04-16 06:49] LABS: CHLORIDE 105 MEQ/L (98-107); POTASSIUM 4.2 MEQ/L (3.5-5.1); SODIUM (NA) 136 MEQ/L (136-145)
[2017-04-16 07:22] LABS: ALKALINE PHOSPHATASE 44 U/L (45-117); ALT (GPT) 14 U/L (10-53); ANION GAP 8 MEQ/L (5-15); AST (GOT) 17 U/L (15-37); BICARBONATE 23.1 MEQ/L (21.0-32.0); BLOOD UREA NITROGEN 21 MG/DL (7-18); GLOMERULAR FILTRATION RATE 57 ML/MIN (>89); TOTAL BILIRUBIN ADULT 0.5 MG/DL (0.2-1.0)
[2017-04-16 08:00] VITALS: BP 97/52; PULSE 92; RESP 18; TEMP 97; O2SAT 95
[2017-04-16] MEDS: INSULIN ASPART SUPPLEMENTAL SCALE SQ SCH ×4 (09:01→20:02)
[2017-04-16] MEDS: PANTOPRAZOLE SOD 40 MG DELAYED RELEASE TAB PO SCH (09:02)
[2017-04-16] MEDS: PRAVASTATIN SOD 20 MG TAB PO SCH (09:02)
[2017-04-16] MEDS: DOCUSATE SODIUM 50 MG/SENNA 8.6 MG TAB PO SCH ×2 (09:03→19:58)
[2017-04-16] MEDS: MEMANTINE HCL 10 MG TAB PO SCH ×2 (09:03→19:58)
[2017-04-16] MEDS: DILTIAZEM-CD 120 MG CAP ER PO SCH (09:03)
[2017-04-16] MEDS: MEGESTROL ACETATE SUSP 400 MG/10 ML CUP PO SCH (09:03)
[2017-04-16] MEDS: SODIUM CHLORIDE 0.9% FLUSH 10 ML FLUSH IV FLUSH SCH ×2 (09:03→19:58)
[2017-04-16 12:00] VITALS: BP 99/60; PULSE 84; RESP 18; TEMP 97.2; O2SAT 94
--- NOTE | 2017-04-16 13:08 | PD.CONS ---
Consult Service Palliative Care Consult Requested By Karan Primary Care Physician Non-Staff Reason for Consultation a. To assist with evaluation and management of symptoms including:anxiety, constipation b. To assist medical decision maker(s) with: better understanding of current medical conditions; weighing benefits/burdens of medical treatment options; making medical treatment decisions. HPI History of Present Illness Mrs. Damon is known to palliative care service and is a 86-year-old female with a history of dementia, arthritis, hypertension diabetes who lives in a a a left facility. Patient previously was seen by palliative care to review goals of care after being transferred to the hospital for nausea and vomiting, poor appetite, hypotension and general decline. Patient was given IV fluids, and patient's had various worked up. At the time family wants to continue medical management and have patient sent back to the [facility] when stable. Pt was an DNR. Pt was sent back to the [facility] 04/08/2017. Patient on April 15, 2017 return to the ER with complaints of oliguria, constipation, and not eating and drinking for the past few days. [facility] again sent patient to the ER, in which patient's HCS/ son could not stop. In the ER: * Temperature is 98.1, pulse is 79, respirations 16, BP is 133/61, pulse ox is 97% * WBCs 10.4, hemoglobin is 12.1, hematocrit is 35.4, platelet is 156 * Sodium is 134, potassium is 4.9, chloride is 105, bicarbonate is 18.3, BUN is 28, creatinine is 1.20 * Abdominal and pelvic CT shows no acute process. No evidence of suspicious mass or lymphadenopathy. Distended urinary bladder. Fecal impaction is in the ureter rectum. * UA shows moderate amount of leukocyte esterase, cultures were indicated and depending. Patient is given IV fluids, Keflex. Patient is currently in the hospital under observation. Palliative care was called to review goals of care. Amenable to start on some Senna. On my visit pt was anxious, and had constipation; had to be disimpacted. Pt very fatigued. She does appear to have some insight, know she is in the hospital. Introduced myself and stated I spoke with her son Nguyễn. She endorse she is tired. She is amenable to enrolling with hospice and be place closer to family. I've talked to the son/healthcare surrogate Chao Clemente. * He understands that patient is declining. " I keep wanting her to turn the corner, but she just has not been able to." * She is a DNR/DNI * He ask if pt could stay one more day for iv hydration and antibiotics. * After that he prefer pt not be sent back to the [facility], as "They just keep sending her to the hospital. I don't want her to keep going to the hospital" * He is amenable to hospice consult. * He ultimate goal is if/when pt enroll in hospice, is to have social work administrator help transfer patient to closer to bob white, and be place in a custodial. * He is appreciative of the call. Function/Cognitive Trajectory Patient is a resident of [facility]. Ambulating with a roller walker but recently has not been eating or drinking much. As had recurrent hospitalization. Patient and son reports that patient has been progressively weaker for the past few weeks, worsening over the past 4 weeks. Decreased appetite, oral intake. Patient spending most of her day in her bed, declining getting out of bed. Patient mostly independent with ADLs, requires assistance with bathing and dressing. Baseline mild dementia. Intermittent periods of confusion/ forgetfulness, easily reoriented. Review of Systems ROS Limitations: Clinical Condition Constitutional: COMPLAINS OF: Fatigue, Change in appetite, DENIES: Fever, Weight gain Endocrine: DENIES: Heat/cold intolerance Eyes: DENIES: Blurred vision, Diplopia Ears, nose, mouth, throat: DENIES: Tinnitus, Hearing loss, Oral lesions Respiratory: DENIES: Apneas, Cough, Wheezing Cardiovascular: DENIES: Chest pain, Syncope Gastrointestinal: COMPLAINS OF: Nausea, Vomiting Musculoskeletal: DENIES: Joint pain, Decreased range of motion Integumentary: DENIES: Pruritus, Nail changes Hematologic/Lymphatics: DENIES: Lymphadenopathy Neurologic: DENIES: Paresthesias Psychiatric: COMPLAINS OF: Anxiety, Confusion Past Family Social History Coded Allergies: Influenza Virus Vaccines (Unverified Allergy, Severe, 04/15/17) ciprofloxacin (Unverified Allergy, Severe, 04/15/17) lisinopril (Verified Allergy, Severe, Edema, 04/15/17) losartan (Unverified Allergy, Severe, 04/15/17) Past Medical History Dementia Diabetes mellitus type II Arthritis Hypertension Hyperlipidemia Past Surgical History Ankle surgery Shoulder surgery D&C Abdominal surgery Reported Medications Glipizide ER (Glipizide) 2.5 Mg Tiarra 2.5 Mg PO DAILY Take with breakfast or first main meal of the day Cyanocobalamin Inj (Cyanocobalamin) 1,000 Mcg/Ml Inj 1,000 Mcg IM MONTHLY Tylenol (Acetaminophen) 325 Mg Tab 650 Mg PO Q4H PRN Mirtazapine 7.5 Mg Tab 7.5 Mg PO HS Ferrous Sulfate 325 Mg (65 Mg Iron) Tablet 325 Mg PO DAILY Vitamin D3 (Cholecalciferol) 2,000 Unit Cap 2,000 Units PO DAILY Epinephrine Inj (Epinephrine HCl) 1 Mg/Ml Inj 0.3 Mg SQ ONCE PRN Give with any signs of respiratory distress. Simvastatin 10 Mg Tab 10 Mg PO DAILY Ranitidine (Ranitidine HCl) 150 Mg Tab 150 Mg PO DAILY Namenda Xr (Memantine) 28 Mg Caper 28 Mg PO DAILY Donepezil 5 Mg Tab 5 Mg PO HS Diphenhydramine (Diphenhydramine HCl) 25 Mg Cap 25 Mg PO HS PRN Diltiazem CD 24 HR 120 Mg Caper 120 Mg PO DAILY Calcium 600 with Vitamin D (Calcium Carbonate-Cholecalciferol) 600-400 mg-Unit Tab 1 Tab PO BID Aspirin Low Dose (Aspirin) 81 Mg Chew 81 Mg CHEW DAILY . Current Medications Medications (Trade) Dose Ordered Sig/Goran Route Start Time Stop Time Status Last Admin Potassium Chloride/Dextrose/ Sod Cl 1,000 ml @ 100 mls/hr Q10H IV 04/15/17 17:09 04/16/17 03:09 (NS Flush) 2 ml UNSCH PRN IV FLUSH 04/15/17 17:15 (NS Flush) 2 ml BID IV FLUSH 04/15/17 21:00 (Zofran Inj) 4 mg Q6H PRN IVP 04/15/17 17:15 04/15/17 21:00 (Narcan Inj) 0.4 mg UNSCH PRN IV PUSH 04/15/17 17:15 (Milk Of Magnesia Liq) 30 ml Q12H PRN PO 04/15/17 17:15 04/15/17 20:58 (Senokot) 17.2 mg Q12H PRN PO 04/15/17 17:15 (Dulcolax Supp) 10 mg DAILY PRN RECTAL 04/15/17 17:15 (Lactulose Liq) 30 ml DAILY PRN PO 04/15/17 17:15 04/15/17 20:58 (Cardizem Cd) 120 mg DAILY PO 04/16/17 09:00 04/16/17 09:03 (Aricept) 5 mg HS PO 04/15/17 21:00 04/15/17 20:59 (Remeron) 7.5 mg HS PO 04/15/17 21:00 04/15/17 20:59 (Protonix) 40 mg DAILY PO 04/16/17 09:00 04/16/17 09:02 (Megace Liq) 400 mg DAILY PO 04/16/17 09:00 04/16/17 09:03 (Namenda) 10 mg BID PO 04/15/17 21:00 04/16/17 09:03 (Pravachol) 20 mg DAILY PO 04/16/17 09:00 04/16/17 09:02 (NovoLOG SUPPLEMENTAL SCALE) 1 ACHS SLIDING SCALE SQ 04/15/17 21:00 04/15/17 22:02 (Kimmie-Colace) 1 tab BID PO 04/15/17 21:00 04/15/17 20:59 Family History Positive for diabetes. Patient has 3 children who are alive and well. Substance Use Tobacco: None. Alcohol: Denies. Prescription med abuse: Denies. Illicits: Denies Psychosocial History Patient originally from [facility]. Moved to [place] in 1973. 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 Patient is a , her in the . Patient has 3 children: Son Chao her bursitis in [place], daughter Siobhan Walker who lives in [place] and son Luis Fernando who lives in [place]. No service. Spiritual/Cultural Factors No samaritan affiliations. Health Care Surrogate(s): Patient report that living will/designation of healthcare surrogate has been completed naming her son Chao Clemente as healthcare surrogate decision maker. Today's verbally stated goals: No code. DNR/DNI. Amenable to hospice consult Family/friends goals: I've talked to the son/healthcare surrogate Chao Clemente. * He understands that patient is declining. " I keep wanting her to turn the corner, but she just has not been able to." * She is a DNR/DNI * He ask if pt could stay one more day for iv hydration and antibiotics. * After that he prefer pt not be sent back to the [facility], as "They just keep sending her to the hospital. I don't want her to keep going to the hospital" * He is amenable to hospice consult. * He ultimate goal is if/when pt enroll in hospice, is to have social work administrator help transfer patient to closer to [place] white, and be place in a custodial. Physical Exam Vital Signs Date Time Temp Pulse Resp B/P (MAP) Pulse Ox O2 Delivery O2 Flow Rate FiO2 04/16/17 08:00 97.0 92 18 97/52 (67) 95 04/16/17 00:00 96.0 107 20 124/86 (99) 95 04/15/17 20:40 96.4 100 20 108/63 (78) 97 04/15/17 20:25 92 18 96 04/15/17 19:56 88 18 116/60 (78) 96 Room Air 04/15/17 18:19 100 18 117/59 (78) 95 Room Air 04/15/17 17:06 99 18 118/60 (79) 95 Nasal Cannula 2.00 04/15/17 14:48 105 18 102/59 (73) 98 Room Air 04/15/17 13:45 100 18 112/48 (69) 96 Nasal Cannula 2.00 04/15/17 13:33 103 18 87/59 (68) 96 Nasal Cannula 2.00 04/15/17 13:08 97.8 106 18 103/67 (79) 97 Exam CONSTITUTIONAL/GENERAL: This is a thin elderly female resting in bed, confuse somewhat anxious. TUBES/LINES/DRAINS: PIV's. SKIN: Pale. No jaundice, rashes, or lesions. No wounds seen anteriorly. Skin temperature appropriate. Not diaphoretic. HEAD: Atraumatic. Normocephalic. EYES: Pupils equal and round and reactive. Extraocular motions intact. No scleral icterus. No injection or drainage. ENT: Hearing grossly normal. Nose without bleeding or purulent drainage. Moist oral mucosa. NECK: Trachea midline. Supple, nontender. CARDIOVASCULAR: Regular rate and rhythm. Systolic murmur. No JVD. Peripheral pulses symmetric. RESPIRATORY/CHEST: Symmetric, unlabored respirations. Clear, diminished to auscultation. Breath sounds equal bilaterally. No wheezes, rales, or rhonchi. GASTROINTESTINAL: Abdomen soft, non-tender, nondistended. No guarding. Bowel sounds present. GENITOURINARY: Without palpable bladder distension. MUSCULOSKELETAL: Extremities without clubbing, cyanosis, or edema. No calf tenderness. No mottling or clubbing. Muscular atrophy in all 4 extremities. NEUROLOGICAL: Awake and alert. Motor and sensory grossly within normal limits. Follows commands. Intermittent confusion/forgetfulness, easily reoriented. Moves all extremities. PSYCHIATRIC: confused. Diagnostic Tests Laboratory Laboratory Tests Test 04/15/17 13:40 04/15/17 14:35 04/16/17 05:55 White Blood Count 10.4 TH/MM3 (4.0-11.0) 7.8 TH/MM3 (4.0-11.0) Red Blood Count 4.03 MIL/MM3 (4.00-5.30) 3.54 MIL/MM3 (4.00-5.30) Hemoglobin 12.1 GM/DL (11.6-15.3) 10.2 GM/DL (11.6-15.3) Hematocrit 35.4 % (35.0-46.0) 31.0 % (35.0-46.0) Mean Corpuscular Volume 87.8 FL (80.0-100.0) 87.7 FL (80.0-100.0) Mean Corpuscular Hemoglobin 30.0 PG (27.0-34.0) 28.9 PG (27.0-34.0) Mean Corpuscular Hemoglobin Concent 34.1 % (32.0-36.0) 33.0 % (32.0-36.0) Red Cell Distribution Width 13.8 % (11.6-17.2) 14.0 % (11.6-17.2) Platelet Count 156 TH/MM3 (150-450) 131 TH/MM3 (150-450) Mean Platelet Volume 9.1 FL (7.0-11.0) 9.6 FL (7.0-11.0) Neutrophils (%) (Auto) 61.5 % (16.0-70.0) 62.5 % (16.0-70.0) Lymphocytes (%) (Auto) 23.7 % (9.0-44.0) 24.8 % (9.0-44.0) Monocytes (%) (Auto) 8.1 % (0.0-8.0) 8.9 % (0.0-8.0) Eosinophils (%) (Auto) 3.4 % (0.0-4.0) 3.1 % (0.0-4.0) Basophils (%) (Auto) 3.3 % (0.0-2.0) 0.7 % (0.0-2.0) Neutrophils # (Auto) 6.4 TH/MM3 (1.8-7.7) 4.9 TH/MM3 (1.8-7.7) Lymphocytes # (Auto) 2.5 TH/MM3 (1.0-4.8) 1.9 TH/MM3 (1.0-4.8) Monocytes # (Auto) 0.8 TH/MM3 (0-0.9) 0.7 TH/MM3 (0-0.9) Eosinophils # (Auto) 0.4 TH/MM3 (0-0.4) 0.2 TH/MM3 (0-0.4) Basophils # (Auto) 0.3 TH/MM3 (0-0.2) 0.1 TH/MM3 (0-0.2) CBC Comment DIFF FINAL DIFF FINAL Differential Comment Blood Urea Nitrogen 28 MG/DL (7-18) 21 MG/DL (7-18) Creatinine 1.20 MG/DL (0.50-1.00) 0.93 MG/DL (0.50-1.00) Random Glucose 176 MG/DL (74-106) 148 MG/DL (74-106) Total Protein 6.6 GM/DL (6.4-8.2) 5.5 GM/DL (6.4-8.2) Albumin 3.0 GM/DL (3.4-5.0) 2.7 GM/DL (3.4-5.0) Calcium Level 9.2 MG/DL (8.5-10.1) 8.2 MG/DL (8.5-10.1) Alkaline Phosphatase 54 U/L (45-117) 44 U/L (45-117) Aspartate Amino Transf (AST/SGOT) 34 U/L (15-37) 17 U/L (15-37) Alanine Aminotransferase (ALT/SGPT) 15 U/L (10-53) 14 U/L (10-53) Total Bilirubin 1.0 MG/DL (0.2-1.0) 0.5 MG/DL (0.2-1.0) Sodium Level 134 MEQ/L (136-145) 136 MEQ/L (136-145) Potassium Level 4.9 MEQ/L (3.5-5.1) 4.2 MEQ/L (3.5-5.1) Chloride Level 105 MEQ/L (98-107) 105 MEQ/L (98-107) Carbon Dioxide Level 18.3 MEQ/L (21.0-32.0) 23.1 MEQ/L (21.0-32.0) Anion Gap 11 MEQ/L (5-15) 8 MEQ/L (5-15) Estimat Glomerular Filtration Rate 42 ML/MIN (>89) 57 ML/MIN (>89) Lipase 334 U/L (73-393) Urine Color YELLOW (YELLW/STRAW) Urine Turbidity CLOUDY (CLEAR) Urine pH 6.5 (5.0-8.5) Urine Specific [place] 1.017 (1.002-1.035) Urine Protein NEG mg/dL (NEG-TRACE) Urine Glucose (UA) NEG mg/dL (NEG) Urine Ketones 15 mg/dL (NEG) Urine Occult Blood SMALL (NEG) Urine Nitrite NEG (NEG) Urine Bilirubin SMALL (NEG) Urine Leukocyte Esterase MOD (NEG) Urine WBC 0-2 /hpf (0-5) Urine Squamous Epithelial Cells 0-5 /hpf (0-5) Urine Amorphous Sediment LARGE Urine Bacteria MANY /hpf (NONE) Microscopic Urinalysis Comment CULTURE INDICATED Result Diagram: 04/16/17 0555 04/16/17 0555 Microbiology Microbiology Date/Time Source Procedure Growth Status 04/15/17 14:35 Urine Clean Catch Urine Culture Pending Received Imaging Last Impressions Abdomen/Pelvis CT 04/15/17 1322 Signed Impressions: Service Date/Time: April 14:58 - CONCLUSION: 1. No acute process. 2. No evidence of suspicious mass or lymphadenopathy. 3. Distended urinary bladder. 4. Fecal impaction in the rectum. Carlos Talamantes MD Patient/Family Conference Family Conference Location: Bedside, Telephone Issues Discussed: * Palliative care role, purpose, approach * Additional medical, psychosocial, and spiritual history * Patients general health, functional status, and cognitive changes in the months leading up to the current hospitalization * Patient/family understanding of the current medical problems * Patient/family understanding of prognosis * Patients goals of care as best understood from advance directives and/or conversations and/or values * Current medical treatment options and benefits/burdens of those options * Likely scenarios comparing ongoing aggressive care with a transition to comfort measures only * Questions answered to the best of my ability * Palliative care contact information provided Assessment and Plan Disease Oriented Problem List: (1) UTI (urinary tract infection) (2) Dementia (3) DM (diabetes mellitus) (4) Poor appetite Symptom Scale: (1) Anxiety 0-10 Scale: Unable to quantify (2) Decrease in appetite 0-10 Scale: Unable to quantify (3) Constipation 0-10 Scale: Unable to quantify Pertinent Non-Medical Issues Psychosocial: Patient originally from [facility]. Moved to [place] in 1973. 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 Patient is a , her in the . Patient has 3 children: Son Chao her michael in [place], daughter Siobhan Walker who lives in [place] and son Luis Fernando who lives in [place]. No service. Spiritual: No samaritan affiliations. Legal: Patient reports that living will has been completed. Pending copy. Ethical issues impacting care: No ethical issues identified. . Important Contacts Son/HCS Chao Clemente and . Son currently on trip If he is unavailable Call [phone]. Prognosis Pt is approriate with hospice. decrease appetite, multiple hospitalization. has dementia. Code Status: No Code Plan Plan * CODE STATUS: Pt is a DNR. * HEALTH CARE [id number]: Has hx of dementia, does not have ability to independently make medical decisions alone. Patient reports that living will/ designation of healthcare surrogate previously completed naming her son Chao Clemente as healthcare surrogate decision maker, in the past. Palliative care recommends shared decision-making given baseline dementia. * GOALS OF CARE: Pt is amenable to hospice enrollment and have pt be place closer to son in near [place]. Amenable to have uti treated, and even with hospice. (Script for Keflex in place). Spoke with Son. =He understands that patient is declining. " I keep wanting her to turn the corner, but she just has not been able to." = She is a DNR/DNI = He ask if pt could stay one more day for iv hydration and antibiotics? =After that he prefer pt not be sent back to the [facility], as "They just keep sending her to the hospital. I don't want her to keep going to the hospital" =He is amenable to hospice consult. =He ultimate goal is if/when pt enroll in hospice, is to have social work administrator help transfer patient to closer to bob white, and be place in a custodial. =He is appreciative of the call. = I will place consult with Hospice. Pt has recurrent UTI, multiple hospitalization, decrease appetite , acute kidney failure. Mild dementia (not end stage). Family would like pt be place closser to [place] and not return to [facility]. Son/HCS Chao Clemente and . Son currently on trip If he is unavailable Call [phone]. * SYMPTOMS: = Poor appetite and oral intake: Patient endorsing poor appetite for the past few weeks. Nausea/vomiting: Resolved at this time. anxiety: related to confusion. * Anxiety- due to general decline,dementia, and constipation * Constipation. - may consider senna. We will follow up to as pt condition evolves in assiting symptom manamgent and goals of care. Thank you for the opportunity to participate in the care of Ms. Clemente. Attestation To help prompt me to consider important information that might be impacting today's encounter and assessment, information from prior notes written by myself or my colleagues may have been "brought forward" into today's note. My signature on this note, however, is an attestation that I personally performed the exam, history, and/or decision-making noted today, and, unless otherwise indicated, the interactions with patient, family, and staff as well as the review of records all occurred today. I also attest that the listed assessment and stated plan reflect my best clinical judgment today based on the combination of historical information, prior notes, and today's exam/ interactions. When time spent is documented, it refers only to time spent today by the signer, or if indicated, combined time spent today by collaborating physician/nurse practitioner. Demarco Manzanares MD Apr 16, 2017 13:08
--- NOTE | 2017-04-16 13:18 | HHI.HP ---
[facility] Primary Care Physician Non-Staff Admission Diagnosis Dehydration; UTI; Urinary Retention; Constipation Diagnoses: (1) Acute renal failure superimposed on stage 2 chronic kidney disease Diagnosis: Principal (2) UTI (urinary tract infection) Diagnosis: Principal (3) Dementia Diagnosis: Principal Chief Complaint: Patient unsure of why she is here Travel History International Travel<30 Days: No Contact w/Intl Traveler <30 Da: No Traveled to Known Affected Are: No History of Present Illness Written by Lance Caldera, acting as scribe for Dr. Ram on 04/16/17 at 13:01. 86-year-old female with known history of dementia, diabetes, arthritis, hypertension, hyperlipidemia, presented to the hospital from local [facility] is indicated that she has not eaten or drank anything for the past day or so. Patient unable to give any information at this time due to her underlying dementia. She is orientated to person, month, year. However she is unsure of where she lives and why she is in the hospital. As indicated in ER documentation that the patient was sent here from local assisted living facility for evaluation of not eating or drinking for last couple days. There is additional complaints of "oliguria and constipation." Patient had workup done which did show acute renal failure superimposed on chronic kidney disease stage II. Mild dehydration. CT scan showing fecal impaction, patient had urinary retention with straight catheter placed with 800 cc of urine output. Urinalysis with possible urinary tract infection. Because of those reasons is recommended by ER physician that the patient be observed in the hospital for further evaluation and management. The patient does live at a local [facility]. She does indicate that she is healthy enough to live by herself. However she does not want to go back today because there is "too much stuff to do." Patient was starting to get frustrated and did not want to be "interrogated anymore." Review of Systems ROS Limitations: Poor Historian Past Family Social History Past Medical History Unable to obtain information from patient, information taken from medical records dementia diabetes arthritis hypertension hyperlipidemia Past Surgical History Unable to obtain information from patient, information taken from medical records Ankle surgery Shoulder surgery D&C Abdominal surgery Reported Medications Reported Meds & Active Scripts Active Keflex (Cephalexin) 250 Mg Cap 250 Mg PO Q8HR 5 Days Pantoprazole (Pantoprazole Sodium) 40 Mg Tab 40 Mg PO DAILY 30 Days Reported Vitamin D3 (Cholecalciferol) 1,000 Unit Chew 2,000 Units CHEW DAILY Vitamin B12 Tr (Cyanocobalamin) 1,000 Mcg Tab 1,000 Mcg IM MONTHLY Senna Laxative (Sennosides) 8.6 Mg Tab 1 Tab PO BID Ranitidine (Ranitidine HCl) 150 Mg Tab 150 Mg PO DAILY Thera M Plus (Multivitamins/Minerals Therapeutic) 1 Tab 1 Tab PO DAILY Megace ES Liq (Megestrol ES Liq) 625 Mg/5 Ml Susp 400 Mg PO DAILY Glipizide ER (Glipizide) 2.5 Mg Tiarra 2.5 Mg PO DAILY Take with breakfast or first main meal of the day Calcium Carbonate 1,500 Mg Tab 600 Mg PO BID 1,500 mg calcium carbonate (600 mg elemental calcium) Cyanocobalamin Inj (Cyanocobalamin) 1,000 Mcg/Ml Inj 1,000 Mcg IM MONTHLY Mirtazapine 7.5 Mg Tab 7.5 Mg PO HS Ferrous Sulfate 325 Mg (65 Mg Iron) Tablet 325 Mg PO DAILY Vitamin D3 (Cholecalciferol) 2,000 Unit Cap 2,000 Units PO DAILY Epinephrine Inj (Epinephrine HCl) 1 Mg/Ml Inj 0.3 Mg SQ ONCE PRN Give with any signs of respiratory distress. Simvastatin 10 Mg Tab 10 Mg PO DAILY Namenda Xr (Memantine) 28 Mg Caper 28 Mg PO DAILY Donepezil 5 Mg Tab 5 Mg PO HS Diphenhydramine (Diphenhydramine HCl) 25 Mg Cap 25 Mg PO HS PRN Diltiazem CD 24 HR 120 Mg Caper 120 Mg PO DAILY Allergies: Coded Allergies: Influenza Virus Vaccines (Unverified Allergy, Severe, 04/15/17) ciprofloxacin (Unverified Allergy, Severe, 04/15/17) lisinopril (Verified Allergy, Severe, Edema, 04/15/17) losartan (Unverified Allergy, Severe, 04/15/17) Family History Record reviewed and indicated significant for diabetes Social History Records indicate that she does live at [facility]. No indication of any tobacco, alcohol or illicit drug Physical Exam Vital Signs Vital Signs Date Time Temp Pulse Resp B/P (MAP) Pulse Ox O2 Delivery O2 Flow Rate FiO2 04/16/17 12:00 97.2 84 18 99/60 (73) 94 04/16/17 08:00 97.0 92 18 97/52 (67) 95 04/16/17 00:00 96.0 107 20 124/86 (99) 95 04/15/17 20:40 96.4 100 20 108/63 (78) 97 04/15/17 20:25 92 18 96 04/15/17 19:56 88 18 116/60 (78) 96 Room Air 04/15/17 18:19 100 18 117/59 (78) 95 Room Air 04/15/17 17:06 99 18 118/60 (79) 95 Nasal Cannula 2.00 04/15/17 14:48 105 18 102/59 (73) 98 Room Air 04/15/17 13:45 100 18 112/48 (69) 96 Nasal Cannula 2.00 04/15/17 13:33 103 18 87/59 (68) 96 Nasal Cannula 2.00 04/15/17 13:08 97.8 106 18 103/67 (79) 97 Physical Exam GENERAL: Well-developed, well-nourished, in no acute distress. alert and to person, year, month, appears fatigued HEENT: Head is normocephalic without any lesions or masses noted. Facial features are symmetric. Eyes: Extraocular muscles are intact. Conjunctivae were clear. Oropharyngeal: Pharynx without any erythema edema. Tongue is midline without deviation. Buccal mucosa is moist without any masses or lesions NECK: No JVD, no bruits are appreciated CARDIAC: Regular rhythm, regular rate. S1/S2 are heard. 5/6 crescendo ejection murmur, gallops or rubs. LUNGS: Clear to auscultation bilaterally. No wheeze, rhonchi or rales. No use of accessory muscles on inspiration or expiration. ABDOMEN: Soft, mild tenderness noted suprapubic region. Nondistended. Patient has stool in the bed. : Lees is in place, about 100 mL's of urine in the new Lees bag EXTREMITIES: No edema, pulses are equal bilaterally. No cyanosis or clubbing Psychiatry: Mood is slightly depressed, affect is appropriate NEUROLOGY: No facial droop, no slurred speech, no tremors, no obvious cranial nerve deficits. MSK: Muscle strength 4/5 in proximal upper and lower extremities bilaterally. Laboratory Laboratory Tests Test 04/15/17 13:40 04/15/17 14:35 04/16/17 05:55 White Blood Count 10.4 7.8 Red Blood Count 4.03 3.54 Hemoglobin 12.1 10.2 Hematocrit 35.4 31.0 Mean Corpuscular Volume 87.8 87.7 Mean Corpuscular Hemoglobin 30.0 28.9 Mean Corpuscular Hemoglobin Concent 34.1 33.0 Red Cell Distribution Width 13.8 14.0 Platelet Count 156 131 Mean Platelet Volume 9.1 9.6 Neutrophils (%) (Auto) 61.5 62.5 Lymphocytes (%) (Auto) 23.7 24.8 Monocytes (%) (Auto) 8.1 8.9 Eosinophils (%) (Auto) 3.4 3.1 Basophils (%) (Auto) 3.3 0.7 Neutrophils # (Auto) 6.4 4.9 Lymphocytes # (Auto) 2.5 1.9 Monocytes # (Auto) 0.8 0.7 Eosinophils # (Auto) 0.4 0.2 Basophils # (Auto) 0.3 0.1 CBC Comment DIFF FINAL DIFF FINAL Differential Comment Blood Urea Nitrogen 28 21 Creatinine 1.20 0.93 Random Glucose 176 148 Total Protein 6.6 5.5 Albumin 3.0 2.7 Calcium Level 9.2 8.2 Alkaline Phosphatase 54 44 Aspartate Amino Transf (AST/SGOT) 34 17 Alanine Aminotransferase (ALT/SGPT) 15 14 Total Bilirubin 1.0 0.5 Sodium Level 134 136 Potassium Level 4.9 4.2 Chloride Level 105 105 Carbon Dioxide Level 18.3 23.1 Anion Gap 11 8 Estimat Glomerular Filtration Rate 42 57 Lipase 334 Urine Color YELLOW Urine Turbidity CLOUDY Urine pH 6.5 Urine Specific [place] 1.017 Urine Protein NEG Urine Glucose (UA) NEG Urine Ketones 15 Urine Occult Blood SMALL Urine Nitrite NEG Urine Bilirubin SMALL Urine Leukocyte Esterase MOD Urine WBC 0-2 Urine Squamous Epithelial Cells 0-5 Urine Amorphous Sediment LARGE Urine Bacteria MANY Microscopic Urinalysis Comment CULTURE INDICATED Date/Time Source Procedure Growth Status 04/15/17 14:35 Urine Clean Catch Urine Culture Pending Received Result Diagram: 04/16/1755 04/16/17 0555 Imaging Last Impressions Abdomen/Pelvis CT 04/15/17 1327 Signed Impressions: Service Date/Time: April 14:58 - CONCLUSION: 1. No acute process. 2. No evidence of suspicious mass or lymphadenopathy. 3. Distended urinary bladder. 4. Fecal impaction in the rectum. MD Lyly Espinal VTE Risk Assessment Caprini VTE Risk Assessment: Mod/High Risk (score >= 2) Caprini Risk Assessment Model Point Value = 1 Point Value = 2 Point Value = 3 Point Value = 5 Age 41-60 Minor surgery BMI > 25 kg/m2 Swollen legs Varicose veins or History of unexplained or recurrent spontaneous Oral contraceptives or hormone replacement Sepsis (< 1 month) Serious lung disease, including pneumonia (< 1 month) Abnormal pulmonary function Acute myocardial infarction Congestive heart failure (< 1 month) History of inflammatory bowel disease Medical patient at bed rest Age 61-74 Arthroscopic surgery Major open surgery (> 45 min) Laparoscopic surgery (> 45 min) Malignancy Confined to bed (> 72 hours) Immobilizing plaster cast Central venous access Age >= 75 History of VTE Family history of VTE Factor V Leiden Prothrombin [id number] Lupus anticoagulant Anticardiolipin antibodies Elevated serum homocysteine Heparin-induced thrombocytopenia Other congenital or acquired thrombophilia Stroke (< 1 month) Elective arthroplasty Hip, pelvis, or leg fracture Acute spinal cord injury (< 1 month) Prophylaxis Regimen Total Risk Factor Score Risk Level Prophylaxis Regimen 0-1 Low Early ambulation 2 Moderate Order ONE of the following: *Sequential Compression Device (SCD) *Heparin 5000 units SQ BID 3-4 Higher Order ONE of the following medications: *Heparin 5000 units SQ TID *Enoxaparin/Lovenox 40 mg SQ daily (WT < 150 kg, CrCl > 30 mL/min) *Enoxaparin/Lovenox 30 mg SQ daily (WT < 150 kg, CrCl > 10-29 mL/min) *Enoxaparin/Lovenox 30 mg SQ BID (WT < 150 kg, CrCl > 30 mL/min) AND/OR *Sequential Compression Device (SCD) 5 or more Highest Order ONE of the following medications: *Heparin 5000 units SQ TID (Preferred with Epidurals) *Enoxaparin/Lovenox 40 mg SQ daily (WT < 150 kg, CrCl > 30 mL/min) *Enoxaparin/Lovenox 30 mg SQ daily (WT < 150 kg, CrCl > 10-29 mL/min) *Enoxaparin/Lovenox 30 mg SQ BID (WT < 150 kg, CrCl > 30 mL/min) AND *Sequential Compression Device (SCD) Assessment and Plan Assessment and Plan Urinary retention, with possible underlying infection - possibly 2/2 constipation unknown etiology, possible medication side effect - Lees catheter has been placed - Will need Lees training - Clean catch is actually a dirty catch from the ER, will obtain a catheterized specimen and see if cultures indicated Generalized weakness - We'll start PT and OT evaluation with fall precautions Significant stool retention - CT scan independent only reviewed by Dr. Ram show significant stool retention with area of fecal impaction noted in rectum - Ordering Gastrografin enema and disimpaction Acute renal failure superimposed on chronic kidney disease stage II - Likely secondary to urinary retention, outlet obstruction - Renal function improving at this time with IV hydration - Continue monitor renal function Fecal impaction - Status post enema with significant output - Nursing staff to evaluate for retained stool - Start bowel regimen Diabetes - Accu-Cheks with sliding scale insulin Dementia with recurrent hospitalizations - Reconsult palliative care for establishing goals of treatment Hypertension, blood pressure low at this time - Home medications have been continued - Continue monitor blood pressure and adjust medications as needed DVT prevention - lovenox Appreciate palliative care input. We will have therapy teams evaluate patient and after their assessment, patient's family will have to decide if they want to proceed with therapy or proceed with hospice or at least comfort oriented care. This note was transcribed by mala Caldera. IMadhu, personally performed the history, physical exam, and medical decision making; and confirmed the accuracy of information in the transcribed note. Authenticated by Madhu Ram on 04/16/17 at 3:59 PM. Orders entered by Nicholas Caldera were at my discretion. Code Status No Code per palliative info. Discussed Condition With ER physician, nursing staff, patient Problem Qualifiers (1) UTI (urinary tract infection): Qualified Codes: N30.01 - Acute cystitis with hematuria Lance Caldera Apr 16, 2017 13:18 Madhu Ram MD Apr 16, 2017 15:57
[2017-04-16 16:00] VITALS: BP 152/63; PULSE 78; RESP 18; TEMP 96.9; O2SAT 96
--- NOTE | 2017-04-16 16:47 | RADRPT ---
EXAM DATE/TIME: 04/16/2017 13:25 [facility] COMPARISON: No previous studies available for comparison. INDICATIONS : Constipation. FLUORO TIME: 2.4 minutes IMAGE COUNT: 5 CONTRAST: 1. Gastroview MEDICAL HISTORY : Dementia. Cardiovascular disease Diabetes mellitus type 2.Hypertension SURGICAL HISTORY : None. ENCOUNTER: Initial ACUITY: 1 week PAIN SCORE: 8/10 LOCATION: Bilateral abdominal FINDINGS: Insertion of the barium enema tip was extremely painful for the patient. Balloon was inflated. Contra st was infused into the rectum around the area of rectal constipation. There is some flow into the si gmoid colon. The patient thereafter became incontinent of Gastrografin. CONCLUSION: 1. Limited Gastrografin enema for rectal constipation as above. Eduin Cruz MD on April 16, 2017 at 16:40 Board Certified Radiologist. This report was verified electronically.
[2017-04-16] MEDS: ENOXAPARIN SODIUM 30 MG/0.3 ML SYRINGE SQ SCH (17:42)
[2017-04-16] MEDS: DONEPEZIL HCL 5 MG TAB PO SCH (19:58)
[2017-04-16] MEDS: MIRTAZAPINE 15 MG TAB PO SCH (19:58)
[2017-04-16 20:00] VITALS: BP 116/57; PULSE 82; RESP 18; TEMP 95.7; O2SAT 96
[2017-04-16] MEDS ORDERED: DIATRIZOATE MEGLUM/DIATRIZOATE SOD 120 ML BTL (for RAD DIAG) RECTAL ONE (20:55)
[2017-04-16 21:34] LABS: GLUCOSE,URINE 250 mg/dL (NEG); KETONE, URINE NEG (NEG); NITRITE,URINE NEG (NEG)
[2017-04-16 21:49] LABS: BLOOD, URINE TRACE (NEG)
[2017-04-16 21:50] LABS: URINE COLOR YELLOW (YELLW/STRAW)
[2017-04-16 21:51] LABS: COMMENT (UR) CATH-CULTURE IND; CULTURE IF INDICATED CATH CULTURE IND; SQUAMOUS EPITHELIAL CELL URINE 0-5 /hpf (0-5)
[2017-04-17] VITALS: BP 127/78; PULSE 83; RESP 16; TEMP 95.5; O2SAT 96
[2017-04-17] MEDS: D5-1/2 NS + KCL 20 MEQ INJ 1,000 ML IV SCH ×2 (06:03→16:09)
[2017-04-17 07:26] LABS: AUTOMATED NEUTROPHIL # 4.1 TH/MM3 (1.8-7.7); BASOPHIL % 0.1 % (0.0-2.0); EOSINOPHIL # 0.2 TH/MM3 (0-0.4); EOSINOPHIL % 3.2 % (0.0-4.0); HEMATOCRIT 28.2 % (35.0-46.0); HEMO FLAGS DIFF FINAL; LYMPH % 25.4 % (9.0-44.0); LYMPHOCYTE # 1.7 TH/MM3 (1.0-4.8); MEAN CELL VOLUME 90.4 FL (80.0-100.0); MEAN CORPUSCULAR HEMOGLOBIN 30.5 PG (27.0-34.0); MEAN CORPUSCULAR HGB CONC 33.7 % (32.0-36.0); MONO % 7.5 % (0.0-8.0); NEUT % 63.8 % (16.0-70.0); PLATELET COUNT 105 TH/MM3 (150-450); RED BLOOD COUNT 3.12 MIL/MM3 (4.00-5.30); RED CELL DISTRIBUTION WIDTH 14.6 % (11.6-17.2); WHITE BLOOD COUNT 6.5 TH/MM3 (4.0-11.0)
[2017-04-17 07:40] LABS: POTASSIUM 4.4 MEQ/L (3.5-5.1)
[2017-04-17 08:00] VITALS: BP 129/66; PULSE 72; RESP 16; TEMP 96.7; O2SAT 96
[2017-04-17] MEDS: PRAVASTATIN SOD 20 MG TAB PO SCH (08:42)
[2017-04-17] MEDS: PANTOPRAZOLE SOD 40 MG DELAYED RELEASE TAB PO SCH (08:42)
[2017-04-17] MEDS: MEGESTROL ACETATE SUSP 400 MG/10 ML CUP PO SCH (08:42)
[2017-04-17] MEDS: MEMANTINE HCL 10 MG TAB PO SCH ×2 (08:42→21:25)
[2017-04-17] MEDS: DOCUSATE SODIUM 50 MG/SENNA 8.6 MG TAB PO SCH ×2 (08:43→21:24)
[2017-04-17] MEDS: DILTIAZEM-CD 120 MG CAP ER PO SCH (08:43)
[2017-04-17] MEDS: SODIUM CHLORIDE 0.9% FLUSH 10 ML FLUSH IV FLUSH SCH ×2 (08:43→21:23)
[2017-04-17] MEDS: INSULIN ASPART SUPPLEMENTAL SCALE SQ SCH ×4 (08:55→21:24)
--- NOTE | 2017-04-17 11:38 | HHI.PR ---
Subjective Remarks Nursing denies any deterioration since last night. The patient herself says she still doesn't know exactly why she is here. Doesn't give much information when asked how she is feeling today. Says she still hurts in her belly. Patient did have a therapeutic Gastrografin enema yesterday that was successful. Objective Vital Signs Date Time Temp Pulse Resp B/P (MAP) Pulse Ox O2 Delivery O2 Flow Rate FiO2 04/17/17 08:00 96.7 72 16 129/66 (87) 96 04/17/17 00:00 95.5 83 16 127/78 (94) 96 04/16/17 20:00 95.7 82 18 116/57 (76) 96 04/16/17 16:00 96.9 78 18 152/63 (92) 96 04/16/17 12:00 97.2 84 18 99/60 (73) 94 I/O 04/16/17 04/16/17 04/16/17 04/17/17 04/17/17 04/17/17 07:00 15:00 23:00 07:00 15:00 23:00 Intake Total 1260 ml 425 ml 800 ml 1690 ml Output Total 200 ml 275 ml 1200 ml Balance 1060 ml 150 ml 800 ml 490 ml Intake Oral 60 ml 425 ml 740 ml IV Total 1200 ml 800 ml 950 ml Output Urine Total 200 ml 275 ml 1200 ml # Bowel Movements 0 1 0 Result Diagram: 04/17/17 0648 04/17/17 0648 Objective Remarks Lying in bed, sleeping, easily awoken No acute distress otherwise, abdomen is soft, mild tenderness palpation diffusely, no rebound Lees catheter is in place, no stool is noted in the bed suggesting incontinence otherwise. A/P Assessment and Plan Urinary retention, with possible underlying infection - possibly 2/2 constipation versus undiagnosed UTI - Lees catheter has been placed - we'll consider voiding trial today depending upon difficulty of initial catheterization by nursing - Will need Lees training - Clean catch is actually a dirty catch from the ER, will obtain a catheterized specimen and see if cultures indicated Generalized weakness - PT is recommending rehabilitation, OT assessment pending - Possibly secondary to urinary retention - - We'll discontinue IV fluids pending good by mouth intake, starting calorie count Constipation - Status post limited rectal Gastrografin enema, continue oral stool softeners Acute renal failure superimposed on chronic kidney disease stage II - Likely secondary to urinary retention, outlet obstruction - Acute component resolved - We'll discontinue IV fluids pending good by mouth intake, starting calorie count Diabetes - Accu-Cheks with sliding scale insulin Dementia with recurrent hospitalizations - Palliative care following, hospice consult order in place Hypertension, blood pressure low at this time - Home medications have been continued - Continue monitor blood pressure and adjust medications as needed DVT prevention - lovenox We will have therapy teams evaluate patient and after their assessment, patient 's family will have to decide if they want to proceed with therapy or proceed with hospice or at least comfort oriented care Madhu Ram MD Apr 17, 2017 11:38
[2017-04-17 12:00] VITALS: BP 109/59; PULSE 84; RESP 18; TEMP 97.1; O2SAT 95
[2017-04-17 16:00] VITALS: BP 120/79; PULSE 77; RESP 18; TEMP 98.1; O2SAT 98
[2017-04-17] MEDS: ENOXAPARIN SODIUM 30 MG/0.3 ML SYRINGE SQ SCH (16:10)
[2017-04-17 20:00] VITALS: BP 121/60; PULSE 85; RESP 16; TEMP 98; O2SAT 96
[2017-04-17] MEDS: MIRTAZAPINE 15 MG TAB PO SCH (21:25)
[2017-04-17] MEDS: DONEPEZIL HCL 5 MG TAB PO SCH (21:25)
[2017-04-18] VITALS: BP 114/57; PULSE 90; RESP 16; TEMP 98; O2SAT 95
[2017-04-18] MEDS: D5-1/2 NS + KCL 20 MEQ INJ 1,000 ML IV SCH ×2 (02:02→15:09)
[2017-04-18 08:00] VITALS: BP 158/67; PULSE 75; RESP 14; TEMP 96.4; O2SAT 97
[2017-04-18] MEDS: PANTOPRAZOLE SOD 40 MG DELAYED RELEASE TAB PO SCH (08:04)
[2017-04-18] MEDS: PRAVASTATIN SOD 20 MG TAB PO SCH (08:04)
[2017-04-18] MEDS: INSULIN ASPART SUPPLEMENTAL SCALE SQ SCH ×4 (08:04→16:29)
[2017-04-18] MEDS: MEMANTINE HCL 10 MG TAB PO SCH (08:04)
[2017-04-18] MEDS: SODIUM CHLORIDE 0.9% FLUSH 10 ML FLUSH IV FLUSH SCH (08:04)
[2017-04-18] MEDS: DILTIAZEM-CD 120 MG CAP ER PO SCH (08:04)
[2017-04-18] MEDS: MEGESTROL ACETATE SUSP 400 MG/10 ML CUP PO SCH (08:04)
[2017-04-18] MEDS: DOCUSATE SODIUM 50 MG/SENNA 8.6 MG TAB PO SCH (08:04)
--- NOTE | 2017-04-18 15:35 | HHI.PR ---
Subjective Remarks Nursing denies any deterioration since last night. Objective Vital Signs Date Time Temp Pulse Resp B/P (MAP) Pulse Ox O2 Delivery O2 Flow Rate FiO2 04/18/17 08:00 96.4 75 14 158/67 (97) 97 04/18/17 00:00 98.0 90 16 114/57 (76) 95 04/17/17 20:00 98.0 85 16 121/60 (80) 96 04/17/17 16:00 98.1 77 18 120/79 (93) 98 I/O 04/17/17 04/17/17 04/17/17 04/18/17 04/18/17 04/18/17 07:00 15:00 23:00 07:00 15:00 23:00 Intake Total 1690 ml 780 ml 1133 ml 420 ml Output Total 1200 ml 650 ml 1300 ml Balance 490 ml 130 ml -167 ml 420 ml Intake Oral 740 ml 480 ml 240 ml IV Total 950 ml 300 ml 893 ml 420 ml Output Urine Total 1200 ml 650 ml 1300 ml # Bowel Movements 0 Result Diagram: 04/17/17 0648 04/17/17 0648 A/P Assessment and Plan Urinary retention - Likely secondary to substantial constipation (which has been addressed) - sandro'shari Lees today w/ voiding trial - UC neg Generalized weakness - PT is recommending rehabilitation - Awaiting decision for fam to choose btw rehab vs comfort care Constipation - Status post limited rectal Gastrografin enema, continue oral stool softeners chronic kidney disease stage II - Likely secondary to urinary retention, outlet obstruction Diabetes - Accu-Cheks with sliding scale insulin - stable Dementia with recurrent hospitalizations - Palliative care following, customer account representative contacted Hypertension, blood pressure low at this time - Home medications have been continued - Continue monitor blood pressure and adjust medications as needed DVT prevention - lovenox Fam to choose btw rehab vs comfort care since pt can't live on their own. Madhu Ram MD Apr 18, 2017 15:35
--- NOTE | 2017-04-18 16:09 | HHI.DS ---
Discharge Summary Admission Date Apr 16, 2017 at 15:48 Discharge Date: Apr 18, 2017 Admitting Diagnosis Dehydration; UTI; Urinary Retention; Constipation (1) Acute renal failure superimposed on stage 2 chronic kidney disease ICD Code: N17.9 - Acute kidney failure, unspecified; N18.2 - Chronic kidney disease, stage 2 (mild) Diagnosis: Principal (2) UTI (urinary tract infection) ICD Code: N39.0 - UTI (urinary tract infection) Diagnosis: Principal Status: Acute (3) Dementia ICD Code: F03.90 - Unspecified dementia without behavioral disturbance Diagnosis: Principal Procedures Lees catheter insertion Brief History - From Admission Written by Lance Caldera, acting as scribe for Dr. Ram on 04/16/17 at 13:01. 86-year-old female with known history of dementia, diabetes, arthritis, hypertension, hyperlipidemia, presented to the hospital from local [facility] is indicated that she has not eaten or drank anything for the past day or so. Patient unable to give any information at this time due to her underlying dementia. She is orientated to person, month, year. However she is unsure of where she lives and why she is in the hospital. As indicated in ER documentation that the patient was sent here from local assisted living facility for evaluation of not eating or drinking for last couple days. There is additional complaints of "oliguria and constipation." Patient had workup done which did show acute renal failure superimposed on chronic kidney disease stage II. Mild dehydration. CT scan showing fecal impaction, patient had urinary retention with straight catheter placed with 800 cc of urine output. Urinalysis with possible urinary tract infection. Because of those reasons is recommended by ER physician that the patient be observed in the hospital for further evaluation and management. The patient does live at a local [facility]. She does indicate that she is healthy enough to live by herself. However she does not want to go back today because there is "too much stuff to do." Patient was starting to get frustrated and did not want to be "interrogated anymore." CBC/BMP: 04/18/17 1540 04/17/17 0648 Significant Findings Laboratory Tests Test 04/16/17 05:55 04/16/17 21:20 04/17/17 06:48 04/18/17 15:40 Red Blood Count 3.54 MIL/MM3 (4.00-5.30) 3.12 MIL/MM3 (4.00-5.30) Hemoglobin 10.2 GM/DL (11.6-15.3) 9.5 GM/DL (11.6-15.3) 10.7 GM/DL (11.6-15.3) Hematocrit 31.0 % (35.0-46.0) 28.2 % (35.0-46.0) Platelet Count 131 TH/MM3 (150-450) 105 TH/MM3 (150-450) Monocytes (%) (Auto) 8.9 % (0.0-8.0) Blood Urea Nitrogen 21 MG/DL (7-18) Random Glucose 148 MG/DL (74-106) 186 MG/DL (74-106) Total Protein 5.5 GM/DL (6.4-8.2) Albumin 2.7 GM/DL (3.4-5.0) Calcium Level 8.2 MG/DL (8.5-10.1) 7.7 MG/DL (8.5-10.1) Alkaline Phosphatase 44 U/L (45-117) Estimat Glomerular Filtration Rate 57 ML/MIN (>89) 65 ML/MIN (>89) Urine Glucose (UA) 250 mg/dL (NEG) Urine Occult Blood TRACE (NEG) Urine Leukocyte Esterase SMALL (NEG) Urine WBC 6-8 /hpf (0-5) Urine WBC Clumps FEW (NONE) PE at Discharge Patient lying in bed, awake, alert, Mild abdominal tenderness diffusely, otherwise soft, no rebound, no distention Hospital Course Patient was admitted, started on IV fluids, had her Lees catheter maintained. Patient underwent a Gastrografin enema which is also evidence if he can't constipation relief and patient maintained good bowel movements afterwards. However she remained incontinent in regards to her bowels. Patient's renal function had stabilized. Palliative care had been consulted given that the patient had difficulty making her own decisions and also there was a concern of her not being able to take care of herself. Physical therapy evaluated and recommended that she undergo rehabilitation. Hospice was consulted but family ultimately made the decision to pursue rehabilitation first and reconsider hospice at a later time should the patient deteriorated on. Patient's urine culture was negative for any true infectious pathology and she was tolerating by mouth intake well by the end of her stay. She remained afebrile throughout this entire hospitalization. Patient has met maximum benefit from hospitalization and is clinically stable for discharge to a [facility]. Pt Condition on Discharge: Stable Discharge Disposition: Discharge to SNF Discharge Time: <= 30 minutes Discharge Instructions DIET: Follow Instructions for: Heart Healthy Diet Activities you can perform: See Additionl Instruction Other Activity Instructions: PER REHAB Follow up Referrals: SNF/[facility] TER[facility]/ with [facility] Continued Medications: Calcium Carbonate (Calcium Carbonate) 1,500 Mg Tab 600 MG PO BID for Calcium Supplement, TAB 0 Refills 1,500 mg calcium carbonate (600 mg elemental calcium) Cholecalciferol (Vitamin D3) 2,000 Unit Cap 2000 UNITS PO DAILY for Nutritional Supplement, #56 CAP 0 Refills Cholecalciferol (Vitamin D3) 1,000 Unit Chew 2000 UNITS CHEW DAILY for Nutritional Supplement, #1 BOTTLE 0 Refills Cyanocobalamin (Vitamin B12 Tr) 1,000 Mcg Tab 1000 MCG IM MONTHLY, #1 BOTTLE Cyanocobalamin Inj (Cyanocobalamin Inj) 1,000 Mcg/Ml Inj 1000 MCG IM MONTHLY for Nutritional Supplement, #1 VIAL 0 Refills Diltiazem CD 24 HR (Diltiazem CD 24 HR) 120 Mg Caper 120 MG PO DAILY, #30 CAP 0 Refills Donepezil (Donepezil) 5 Mg Tab 5 MG PO HS for Dementia, #30 TAB 0 Refills Epinephrine Inj (Epinephrine Inj) 1 Mg/Ml Inj 0.3 MG SQ ONCE PRN for ALLERGIC REACTION, #1 INJECTION Give with any signs of respiratory distress. Ferrous Sulfate (Ferrous Sulfate) 325 Mg (65 Mg Iron) Tablet 325 MG PO DAILY for Nutritional Supplement, #30 TAB 0 Refills Glipizide ER (Glipizide ER) 2.5 Mg Tiarra 2.5 MG PO DAILY for Blood Sugar Management, #30 TAB 0 Refills Take with breakfast or first main meal of the day Megestrol ES Liq (Megace ES Liq) 625 Mg/5 Ml Susp 400 MG PO DAILY for Improve Appetite, #240 ML 0 Refills Memantine Er (Namenda Xr) 28 Mg Caper 28 MG PO DAILY for Alzheimer Disease, #30 CAP 0 Refills Mirtazapine (Mirtazapine) 7.5 Mg Tab 7.5 MG PO HS for Depression Control, #30 TAB 0 Refills Multiple Vitamins W/ Minerals (Thera M Plus) 1 Tab 1 TAB PO DAILY for Nutritional Supplement, TAB 0 Refills Pantoprazole (Pantoprazole) 40 Mg Tab 40 MG PO DAILY for Reflux for 30 Days, #30 TAB Ranitidine (Ranitidine) 150 Mg Tab 150 MG PO DAILY for Heartburn Management, #30 TAB 0 Refills Sennosides (Senna Laxative) 8.6 Mg Tab 1 TAB PO BID for Constipation Simvastatin (Simvastatin) 10 Mg Tab 10 MG PO DAILY for Cholesterol Management, #30 TAB 0 Refills Discontinued Medications: Cephalexin (Keflex) 250 Mg Cap 250 MG PO Q8HR for Infection for 5 Days, CAP 0 Refills Diphenhydramine (Diphenhydramine) 25 Mg Cap 25 MG PO HS PRN for INSOMNIA, CAP 0 Refills Madhu Ram MD Apr 18, 2017 16:09
[2017-04-18] MEDS: ENOXAPARIN SODIUM 30 MG/0.3 ML SYRINGE SQ SCH (16:31)
== END 2017-04-18 18:15 | DRG 683 ==
LOC: PHED 13:05 → PHEDA 17:07 → PH3A 20:24 → OBSVTOIN 04-16 15:48
PROVIDERS: ADMIT Hospitalist; ATTEND Hospitalist
PROC: 0T9B70Z Drainage of Bladder with Drainage Device, Via Natural or Artificial Opening (ICD-10-PCS; principal; 2017-04-16)
DX: N17.9 Acute kidney failure, unspecified (principal); N39.0 Urinary tract infection, site not specified; E11.22 Type 2 diabetes mellitus with diabetic chronic kidney disease; I95.9 Hypotension, unspecified; F03.90 Unspecified dementia, unspecified severity, without behavioral disturbance, psychotic disturbance, mood disturbance, and anxiety; R63.0 Anorexia; E86.0 Dehydration; I12.9 Hypertensive chronic kidney disease with stage 1 through stage 4 chronic kidney disease, or unspecified chronic kidney disease; N18.2 Chronic kidney disease, stage 2 (mild); K56.41 Fecal impaction; M19.90 Unspecified osteoarthritis, unspecified site; E78.5 Hyperlipidemia, unspecified; H91.90 Unspecified hearing loss, unspecified ear; F41.9 Anxiety disorder, unspecified; Z66 Do not resuscitate; Z68.20 Body mass index [BMI] 20.0-20.9, adult; Z79.84 Long term (current) use of oral hypoglycemic drugs; Z88.1 Allergy status to other antibiotic agents; Z88.7 Allergy status to serum and vaccine
CPT/HCPCS: 51702; 74177; 74270; 80048; 80053; 81001; 82948; 83690; 83735; 85018; 85025; 87086; 96365; 96372; 96375; G0378; G8987-GP; G8988-GP; J1650; J1815; J2405; J3480; Q9963; Q9967